=== PATIENT | male | born 1960 | race African-American/Black ===

== ENCOUNTER 2016-12-28 12:04 | Inpatient (IN) | payer MEDICAID ==
--- NOTE | 2016-12-28 12:50 | ED Physician Chart ---
ED Chief Complaint/HPI - Patient Information Date Seen:: 12/28/16 Time Seen:: 12:35 Chief Complaint:: dialysis shunt replacement/repair History of Present Illness:: location: general quality: dialysis shunt severity: moderate duration: one day context: dialysis dependent SNF pt post CVA with baseline awake, alert no verbal reponse and flexion contractures of upper and lower limbs is sent to ER from SNF due to inadequate dialysis access. PCP Dr. Briceño advises that patient needs dialysis access expediently or he will go into renal failure, pt is sent to this facility for dialysis access. pt is nonverbal, no grimace is reported. mod factors: none assoc s/s; none hx from medic, Dr. Briceño Allergies:: Allergies Allergy/AdvReac Type Severity Reaction Status Date / Time No Known Allergies Allergy Verified 12/28/16 12:28 Vitals:: Vital Signs - 8 hr 12/28/16 12:28 Temp 99.1 F HR 68 RR 18 BP 122/72 O2 Sat % 98 Historian:: EMS, Other Review:: Nurse's Note Reviewed, EMS run form Reviewed ED Review of Systems - Review of Systems General/Constitutional: No fever Skin: No rash Cardio Vascular: No edema GI: No diarrhea Allergic/Immuno: No angioedema ED Past Medical History - Past Medical History Past Medical History: CVA/TIA Family History: None (unknown, pt cannot give history) Social History: Non Smoker, No Alcohol, No Drug Use, Single, Care Facility Surgical History: other (right groin, right subclavian dialysis catheter ) Psychiatricy History: Dementia Medication: Reviewed Family Medical History - Family Member Mother History Unknown: Yes Ethnicity: Unknown Living Status: Unknown ED Physical Exam - Physical Examination General/Constitutional: Awake, No distress (slim, cachectic), Non-toxic appearing Head: Atraumatic Eyes: Lids, conjuctiva normal, PERRL, EOMI Skin: Nl inspection ENMT: External ears, nose nl, Nasal exam nl, Lips, teeth, gums nl Neck: Nontender Respiratory: Nl effort/Exclusion, Clear to Auscultation, No Wheeze/Rhonchi/Rales Cardio Vascular: RRR, No murmur, gallop, rubs, NL S1 S2 GI: No tenderness/rebounding/guarding : No CVA tenderness Extremities: No tenderness or effusion, Full ROM, normal strength in all extremities, No edema, Normal digits & nails Neuro/Psych: Alert/oriented Misc: Normal back (pt is awake, non-verbal and thus not verbally oriented), No paraspinal tenderness ED Labs/Radiology/EKG Results - Lab Results Results: medical decision making: pt with dialysis dependance. right groin catheter not functioning properly needs more definitive dialysis access. to be admitted for further treatment. pt to be admitted by Dr. Briceño. Laboratory Results - last 24 hr 12/28/16 12/28/16 12/28/16 13:00 13:00 13:00 WBC 6.3 RBC 3.75 L Hgb 10.3 L Hct 31.3 L MCV 83.5 MCH 27.4 MCHC Differential 32.8 RDW 19.2 Plt Count 394 MPV 7.5 Neutrophils % 73.4 Lymphocytes % 18.1 L Monocytes % 5.9 Eosinophils % 1.9 Basophils % 0.7 PT 9.6 INR 0.92 Sodium 130 L Potassium 3.3 L Chloride 100 Carbon Dioxide 25.1 Anion Gap 8.2 BUN 35 H Creatinine 7.0 H* Est GFR ( Amer) 10.6 Est GFR (Non-Af Amer) 8.8 BUN/Creatinine Ratio 5.0 Glucose 101 Calcium 10.7 H Total Bilirubin 0.3 AST 24 ALT 23 Alkaline Phosphatase 50 Total Protein 6.1 Albumin 3.1 L Globulin 3.0 Albumin/Globulin Ratio 1.0 ED Septic Shock - . Is Septic Shock (SBP<90, OR Lactate>4 mmol\L) present?: No - <6hrs of presentation: Vital Signs: Vital Signs - 8 hr 12/28/16 12:28 Temp 99.1 F HR 68 RR 18 BP 122/72 O2 Sat % 98 ED Reassessment (Disposition) - Reassessment Reassessment:: pt in stable condition while in ER Reassessment Condition:: Unchanged - Diagnosis Diagnosis:: Dialysis dependence needs dialysis access (urgent) - Patient Disposition Discharge/Transfer:: Acute Care w/in this hosp Accepting Physician:: Navarro Time Called:: 1410 Discussion with Medical Provider:: recommend admission for treatment of poor dialysis access, clogged dialysis access catheter Admitted to:: Med/Surg Admitting Medical Physician:: Albaro Briceño Condition at Disposition:: Stable
[2016-12-28 13:08] LABS: % BASOPHILS 0.7 % (0.0-2.0); % EOSINOPHILS 1.9 % (0.0-5.0); % LYMPHOCYTES 18.1 % (20.0-50.0); % MONOCYTES 5.9 % (2.0-10.0); % NEUTROPHILS 73.4 % (40.0-80.0); HEMATOCRIT 31.3 % (41.0-60); HEMOGLOBIN 10.3 gm/dL (12-16); MEAN CELL VOLUME 83.5 fl (80-99); MEAN CORPUSCULAR HEMOGLOBIN 27.4 pg (26.0-30.0); MEAN CORPUSCULAR HGB CONC 32.8 pg (28.0-36.0); MEAN PLATELET VOLUME 7.5 fl; NEUTROPHILE ABSOLUTE 4.7 Th/cmm (1.8-8.0); PLATELET COUNT 394 Th/cmm (150-400); RED BLOOD COUNT 3.75 Mil/cmm (4.30-5.70); RED CELL DISTRIBUTION WIDTH 19.2 % (11.5-20.0); WHITE BLOOD COUNT 6.3 Th/cmm (4.8-10.8)
[2016-12-28 13:20] LABS: INR 0.92 (0.5-1.4); PROTHROMBIN TIME (TEST) 9.6 SECONDS (9.5-11.5)
[2016-12-28 13:25] LABS: ANION GAP 8.2 (7.0-16.0); BILIRUBIN,TOTAL 0.3 mg/dL (0.3-1.0); CALCIUM SERUM 10.7 mg/dL (8.6-10.3); CARBON DIOXIDE 25.1 mEq/L (21.0-31.0); POTASSIUM SERUM 3.3 mEq/L (3.5-5.1)
[2016-12-28] MEDS ORDERED: Non-Formulary Item 1 EA (Lactulose [Lactulose] 20 GM) PO PRN (16:03)
[2016-12-28] MEDS ORDERED: Lactulose 10 Gm/15 mL 30mL UDC PO PRN ×2 (16:12→16:15)
[2016-12-28] MEDS ORDERED: DARBEPOETIN ALFA IN POLYSORBAT 40 MCG SQ SCH (16:15)
[2016-12-28] MEDS: KCL 20mEq/100mL Premix 20 MEQ/100 ML PIGGYBACK IV SCH ×2 (18:17→22:05)
[2016-12-28] MEDS ORDERED: Non-Formulary Item 1 EA (Atorvastatin Calcium [Lipitor] 20 MG) PO SCH (21:00)
[2016-12-28] MEDS: Atorvastatin Calcium 10 MG TAB PO SCH (22:13)
[2016-12-29 05:51] LABS: % BASOPHILS 0.3 % (0.0-2.0); % EOSINOPHILS 2.3 % (0.0-5.0); % LYMPHOCYTES 16.7 % (20.0-50.0); % NEUTROPHILS 76.7 % (40.0-80.0); HEMATOCRIT 29.4 % (41.0-60); HEMOGLOBIN 9.9 gm/dL (12-16); MEAN CELL VOLUME 82.8 fl (80-99); MEAN CORPUSCULAR HGB CONC 33.8 pg (28.0-36.0); MEAN PLATELET VOLUME 7.6 fl; NEUTROPHILE ABSOLUTE 5.7 Th/cmm (1.8-8.0); PLATELET COUNT 417 Th/cmm (150-400); RED BLOOD COUNT 3.55 Mil/cmm (4.30-5.70); RED CELL DISTRIBUTION WIDTH 19.3 % (11.5-20.0); WHITE BLOOD COUNT 7.5 Th/cmm (4.8-10.8)
[2016-12-29 06:13] LABS: ANION GAP 10.3 (7.0-16.0); CALCIUM SERUM 11.3 mg/dL (8.6-10.3); CARBON DIOXIDE 24.7 mEq/L (21.0-31.0)
[2016-12-29 06:18] LABS: CREATININE - SERUM 7.4 mg/dL (0.7-1.3)
--- NOTE | 2016-12-29 08:22 | Diagnostic Imaging Report ---
Exam: Chest x-ray HISTORY preop. Findings: Frontal examination of chest was reviewed. The study demonstrates no active pulmonic infiltrates or effusions. Mediastinal structures midline the heart is prominent. The costophrenic angles are clear. Bony thorax intact. IMPRESSION: No acute disease.
[2016-12-29] MEDS ORDERED: Non-Formulary Item 1 EA (Losartan Potassium [Cozaar] 100 MG) PO SCH (09:00)
--- NOTE | 2016-12-29 09:53 | History and Physical ---
History of Present Illness - HPI Chief Complaint: confustion HPI: pt progressively weak and confused Vital Signs: Last Vital Signs Temp 98.9 F 12/29/16 04:00 Pulse 61 12/29/16 04:00 Resp 18 12/29/16 04:00 BP 165/111 12/29/16 04:00 Pulse Ox 100 12/29/16 04:00 Past Medical History Psych: Report: Anxiety, Bipolar, Depression Family Medical History - Family Member Mother History Unknown: Yes Ethnicity: Unknown Living Status: Unknown Social History Smoke: No Alcohol: None Drugs: None Lives: Care Home - Medications Home Medications: Home Medication Medication Instructions Recorded Type Amlodipine Besylate 10 mg PO DAILY 12/28/16 History Aspirin EC [Ecotrin] 81 mg PO DAILY 12/28/16 History Atorvastatin Calcium [Lipitor] 20 mg PO HS 12/28/16 History Darbepoetin Herman in Polysorbat 40 mcg SQ QWEEK 0730 12/28/16 History [Aranesp] Donepezil Hcl [Aricept] 10 mg PO DAILY 12/28/16 History Famotidine [Pepcid] 20 mg PO DAILY 12/28/16 History Folic Acid [Folate*] 1 mg PO DAILY 12/28/16 History Folic Acid/Vit Bcomp,C 0.8 mg PO DAILY 12/28/16 History [Nephro-Miles Tablet] Hydralazine HCl 50 mg PO TID 12/28/16 History Lactulose 20 gm PO Q8HR PRN 12/28/16 History Losartan Potassium [Cozaar] 100 mg PO DAILY 12/28/16 History Megestrol Acetate [Megace] 40 mg PO BID 12/28/16 History Memantine [Namenda] 5 mg PO BID 12/28/16 History Nifedipine [Procardia Xl*] 30 mg PO DAILY 12/28/16 History Sucralfate [Carafate] 1 gm PO QID 12/28/16 History Tamsulosin HCl [Flomax] 0.4 mg PO DAILY 12/28/16 History cloNIDine HCl [Catapres] 0.1 mg PO Q6H PRN 12/28/16 History - Allergies Allergies/Adverse Reactions: Allergies Allergy/AdvReac Type Severity Reaction Status Date / Time No Known Allergies Allergy Verified 12/28/16 12:28 Review of Systems - Review of Systems Constitutional: Report: No Significant Eyes: Report: No Significant Respiratory: Report: SOB with Excertion Cardiovascular: Report: No Significant, Light Headedness Neurological: Report: Weakness, Incoordination Physical Exam - Physical Exam HEENT: Report: Ears Nose Throat within normal limits, Pharnyx within normal limits Neck: Report: Within normal limits Cardiovascular Systems: Report: +s1/s2 noted Respiratory: Report: Breath Sounds are within normal limits Abdomen: Report: Non-tender to palpation Skin: Report: Color of skin is within normal limits Neuro/Psych: Report: Mood affect is within normal limits, Depressed affect - Lab Results All Lab Results last 24 hours: Laboratory Last Values WBC 7.5 Th/cmm (4.8-10.8) 12/29/16 05:42 RBC 3.55 Mil/cmm (4.30-5.70) L 12/29/16 05:42 Hgb 9.9 gm/dL (12-16) L 12/29/16 05:42 Hct 29.4 % (41.0-60) L 12/29/16 05:42 MCV 82.8 fl (80-99) 12/29/16 05:42 MCH 28.0 pg (26.0-30.0) 12/29/16 05:42 MCHC Differential 33.8 pg (28.0-36.0) 12/29/16 05:42 RDW 19.3 % (11.5-20.0) 12/29/16 05:42 Plt Count 417 Th/cmm (150-400) H 12/29/16 05:42 MPV 7.6 fl 12/29/16 05:42 Neutrophils % 76.7 % (40.0-80.0) 12/29/16 05:42 Lymphocytes % 16.7 % (20.0-50.0) L 12/29/16 05:42 Monocytes % 4.0 % (2.0-10.0) 12/29/16 05:42 Eosinophils % 2.3 % (0.0-5.0) 12/29/16 05:42 Basophils % 0.3 % (0.0-2.0) 12/29/16 05:42 PT 9.6 SECONDS (9.5-11.5) 12/28/16 13:00 INR 0.92 (0.5-1.4) 12/28/16 13:00 Sodium 132 mEq/L (136-145) L 12/29/16 05:42 Potassium 4.0 mEq/L (3.5-5.1) 12/29/16 05:42 Chloride 101 mEq/L (98-107) 12/29/16 05:42 Carbon Dioxide 24.7 mEq/L (21.0-31.0) 12/29/16 05:42 Anion Gap 10.3 (7.0-16.0) 12/29/16 05:42 BUN 37 mg/dL (7-25) H 12/29/16 05:42 Creatinine 7.4 mg/dL (0.7-1.3) H* 12/29/16 05:42 Est GFR ( Amer) 9.9 ml/min (>90) 12/29/16 05:42 Est GFR (Non-Af Amer) 8.2 ml/min 12/29/16 05:42 BUN/Creatinine Ratio 5.0 12/29/16 05:42 Glucose 79 mg/dL (70-105) 12/29/16 05:42 Calcium 11.3 mg/dL (8.6-10.3) H 12/29/16 05:42 Total Bilirubin 0.3 mg/dL (0.3-1.0) 12/28/16 13:00 AST 24 U/L (13-39) 12/28/16 13:00 ALT 23 U/L (7-52) 12/28/16 13:00 Alkaline Phosphatase 50 U/L (34-104) 12/28/16 13:00 Total Protein 6.1 gm/dL (6.0-8.3) 12/28/16 13:00 Albumin 3.1 gm/dL (4.2-5.5) L 12/28/16 13:00 Globulin 3.0 gm/dL 12/28/16 13:00 Albumin/Globulin Ratio 1.0 (1.0-1.8) 12/28/16 13:00 Laboratory Results - last 24 hr 12/29/16 12/29/16 05:42 05:42 WBC 7.5 RBC 3.55 L Hgb 9.9 L Hct 29.4 L MCV 82.8 MCH 28.0 MCHC Differential 33.8 RDW 19.3 Plt Count 417 H MPV 7.6 Neutrophils % 76.7 Lymphocytes % 16.7 L Monocytes % 4.0 Eosinophils % 2.3 Basophils % 0.3 Sodium 132 L Potassium 4.0 Chloride 101 Carbon Dioxide 24.7 Anion Gap 10.3 BUN 37 H Creatinine 7.4 H* Est GFR ( Amer) 9.9 Est GFR (Non-Af Amer) 8.2 BUN/Creatinine Ratio 5.0 Glucose 79 Calcium 11.3 H - Assessment Assessment: psychosis - Plan Plan: psychosis muscle weakness plan psych consult
[2016-12-29] MEDS: NIFEdipine 30 mg ER Tab PO SCH (09:57)
--- NOTE | 2016-12-29 13:50 | Consultation ---
Consult Note - Consult Note Service Date: 12/29/16 Referring Physician: Albaro Briceño Consult Note: PHYSICIAN Consultation Note: Date of Admission: 12/28/16 Purpose of Consultation: esrd Chief Complaint: malfunctioning HD catheter History of Present Illness: Patient SAUNDRA WALLER was admitted to [facility] with SHUNT REPAIR/PLACEMENT. He was unable to complete his HD on Friday due to malfunction of dialysis catheter. He was hence sent to hospital for revision or replacement of dialysis catheter. He is nonverbal due to hx CVA and ESRD with dialysis status apparently on a MWF schedule. Past Medical History: as per hpi, also HTN, chronic encephalopathy Allergies Allergy/AdvReac Type Severity Reaction Status Date / Time No Known Allergies Allergy Verified 12/28/16 12:28 Vital Signs Temp 98.6 F 12/29/16 11:36 Pulse 86 12/29/16 11:36 Resp 18 12/29/16 11:36 BP 158/104 12/29/16 11:36 Pulse Ox 99 12/29/16 11:36 Intake & Output 12/28/16 12/29/16 12/29/16 18:59 06:59 18:59 Intake Total 200 100 Balance 200 100 Weight (lbs) 54.431 kg 50.547 kg Intake: Intake, IV Amount 100 KCL 20mEq/100mL Premix 20 100 meq In 100 ml @ 50 mls/ hr IV Q2H [facility] Rx#: [id number] Oral 200 Other: # Voids 2 1 # Bowel Movements 0 0 Laboratory Results - last 24 hr 12/29/16 12/29/16 05:42 05:42 WBC 7.5 RBC 3.55 L Hgb 9.9 L Hct 29.4 L MCV 82.8 MCH 28.0 MCHC Differential 33.8 RDW 19.3 Plt Count 417 H MPV 7.6 Neutrophils % 76.7 Lymphocytes % 16.7 L Monocytes % 4.0 Eosinophils % 2.3 Basophils % 0.3 Sodium 132 L Potassium 4.0 Chloride 101 Carbon Dioxide 24.7 Anion Gap 10.3 BUN 37 H Creatinine 7.4 H* Est GFR ( Amer) 9.9 Est GFR (Non-Af Amer) 8.2 BUN/Creatinine Ratio 5.0 Glucose 79 Calcium 11.3 H Home Medication Medication Instructions Recorded Type Amlodipine Besylate 10 mg PO DAILY 12/28/16 History Aspirin EC [Ecotrin] 81 mg PO DAILY 12/28/16 History Atorvastatin Calcium [Lipitor] 20 mg PO HS 12/28/16 History Darbepoetin Herman in Polysorbat 40 mcg SQ QWEEK 72912/28/16 History [Aranesp] Donepezil Hcl [Aricept] 10 mg PO DAILY 12/28/16 History Famotidine [Pepcid] 20 mg PO DAILY 12/28/16 History Folic Acid [Folate*] 1 mg PO DAILY 12/28/16 History Folic Acid/Vit Bcomp,C 0.8 mg PO DAILY 12/28/16 History [Nephro-Miles Tablet] Hydralazine HCl 50 mg PO TID 12/28/16 History Lactulose 20 gm PO Q8HR PRN 12/28/16 History Losartan Potassium [Cozaar] 100 mg PO DAILY 12/28/16 History Megestrol Acetate [Megace] 40 mg PO BID 12/28/16 History Memantine [Namenda] 5 mg PO BID 12/28/16 History Nifedipine [Procardia Xl*] 30 mg PO DAILY 12/28/16 History Sucralfate [Carafate] 1 gm PO QID 12/28/16 History Tamsulosin HCl [Flomax] 0.4 mg PO DAILY 12/28/16 History cloNIDine HCl [Catapres] 0.1 mg PO Q6H PRN 12/28/16 History Current Medications Generic Name Dose Route Start Last Admin Trade Name Freq PRN Reason Stop Dose Admin Amlodipine Besylate 10 mg 12/29/16 09:00 12/29/16 09:57 Norvasc PO 02/27/17 08:59 10 mg DAILY MIKA Administration Aspirin 81 mg 12/29/16 09:00 12/29/16 09:57 Ecotrin PO 02/27/17 08:59 81 mg DAILY MIKA Administration Atorvastatin Calcium 20 mg 12/28/16 21:00 12/28/16 22:13 Lipitor PO 02/26/17 20:59 20 mg HS MIKA Administration Donepezil HCl 10 mg 12/29/16 09:00 12/29/16 09:57 Aricept PO 02/27/17 08:59 10 mg DAILY MIKA Administration Famotidine 20 mg 12/29/16 09:00 12/29/16 09:57 Pepcid PO 02/27/17 08:59 20 mg DAILY MIKA Administration Folic Acid 1 mg 12/29/16 09:00 12/29/16 09:57 Folate PO 02/27/17 08:59 1 mg DAILY MIKA Administration Hydralazine HCl 50 mg 12/28/16 21:00 12/29/16 09:56 Apresoline PO 02/26/17 20:59 50 mg TID MIKA Administration Lactulose 20 gm 12/28/16 16:15 Cephulac PO 02/26/17 16:11 Q8HR PRN Constipation Losartan Potassium 100 mg 12/29/16 09:00 12/29/16 09:56 Cozaar PO 02/27/17 08:59 100 mg DAILY MIKA Administration Megestrol Acetate 40 mg 12/28/16 17:00 12/29/16 09:57 Megace PO 02/26/17 16:59 40 mg BID MIKA Administration Protocol Memantine 5 mg 12/28/16 17:00 12/29/16 09:58 Namenda PO 02/26/17 16:59 5 mg BID MIKA Administration Miscellaneous 40 mcg 12/28/16 16:15 Darbepoetin Herman In Polysorbat [Aranesp] SQ 02/26/17 16:14 QWEEK 0730 MIKA Nifedipine 30 mg 12/29/16 09:00 12/29/16 09:57 Procardia Xl PO 02/27/17 08:59 30 mg DAILY MIKA Administration Vitamin B Complex/Vit C/Folic Acid tab 12/29/16 09:00 Vitamin B Complex W/Vitamin C PO 02/27/17 08:59 DAILY MIKA Review of Systems: A 12 point ROS was reviewed with the pertinent positive and negatives noted in the HPI. Social History Smoking Status Unknown if ever smoked Family Medical History Family Medical History Start: 12/28/16 14: 25 Freq: ONCE Status: Active Document 12/28/16 15:36 SKYLAR (Rec: 12/28/16 15:36 SKYLAR KELLEY-[id number] ) Family Medical History Mother History Unknown Yes Physical Exam: Vitals see chart General: awake, not much purposeful response, in nad HEENT: head nc/at sclerae anicteric, op clear moist Neck: supple Cardio: rrr Respiratory: ctab Abdominal: soft ntnd Genital/Urinary: not done Extremities: no edema, R femoral HD catheter Neurological: as above Assessment: 1. malfunction of HD catheter 2. ESRD/Dialysis status 3. HTN w ESRD 4. Anemia due to ESRD 5. chronic encephalopathy 6. hx cva Plan: as per Vascular HD MWF and prn Procrit Monitor labs supportive care Signed, Jorje Ariza [phone]
[2016-12-29] MEDS: Atorvastatin Calcium 10 MG TAB PO SCH (20:47)
[2016-12-30] MEDS: Heparin Sod 1,000 Units/mL 10ml HD SCH ×2 (00:11→09:35)
[2016-12-30 05:02] LABS: % BASOPHILS 0.9 % (0.0-2.0); % EOSINOPHILS 2.5 % (0.0-5.0); % LYMPHOCYTES 23.2 % (20.0-50.0); % NEUTROPHILS 66.4 % (40.0-80.0); HEMATOCRIT 26.6 % (41.0-60); HEMOGLOBIN 8.9 gm/dL (12-16); MEAN CELL VOLUME 82.5 fl (80-99); MEAN CORPUSCULAR HEMOGLOBIN 27.5 pg (26.0-30.0); MEAN CORPUSCULAR HGB CONC 33.3 pg (28.0-36.0); MEAN PLATELET VOLUME 7.7 fl; NEUTROPHILE ABSOLUTE 3.9 Th/cmm (1.8-8.0); PLATELET COUNT 371 Th/cmm (150-400); RED BLOOD COUNT 3.22 Mil/cmm (4.30-5.70); RED CELL DISTRIBUTION WIDTH 18.9 % (11.5-20.0)
[2016-12-30 05:08] LABS: WHITE BLOOD COUNT 5.8 Th/cmm (4.8-10.8)
[2016-12-30 05:11] LABS: INR 0.96 (0.5-1.4)
[2016-12-30 05:15] LABS: ANION GAP 10.8 (7.0-16.0); BUN/CREATININE RATIO 5.3; CALCIUM SERUM 11.1 mg/dL (8.6-10.3); CARBON DIOXIDE 23.3 mEq/L (21.0-31.0); POTASSIUM SERUM 4.1 mEq/L (3.5-5.1)
[2016-12-30 05:18] LABS: CREATININE - SERUM 8.1 mg/dL (0.7-1.3)
[2016-12-30] MEDS: Vitamin B Complex w/Vitamin C Tab PO SCH ×2 (08:46→09:36)
[2016-12-30] MEDS: NIFEdipine 30 mg ER Tab PO SCH (08:47)
[2016-12-30] MEDS ORDERED: Meperidine 25 mg/mL 1mL Syr IVP ONE (09:00)
[2016-12-30] MEDS ORDERED: Lactated Ringer 1,000 ML IV SCH (09:00)
--- NOTE | 2016-12-30 10:00 | Consultation ---
DATE OF CONSULTATION: 12/29/2016 REFERRING PHYSICIAN: /Dr. Briceño. REASON FOR CONSULTATION: No dialysis access. Thank you for referring this patient to me. HISTORY OF PRESENT ILLNESS: This is a 56-year-old male status post CVA and dementia with contractures of upper extremity, who comes in because of inability to dialyze via Perm-A-Cath. This apparently has malfunctioned and the patient could not be dialyzed. LABORATORY STUDIES: Showed CBC to be normal. BUN and creatinine elevated at 35 and 7 respectively. PHYSICAL EXAMINATION: The patient is nonverbal. He has contracture of upper extremities. PLAN: We will place Perm-A-Cath and AV shunt or fistula depending on findings. JOB# [id number]
[2016-12-30] MEDS ORDERED: Midazolam 1mg/ml 2 ml vial IV ONE (11:19)
--- NOTE | 2016-12-30 11:54 | History and Physical ---
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 FOR THIS REASON PATIENT IS NOW ADMITTED FOR AV SHUNT REPAIR. Vital Signs: Last Vital Signs Temp 97.6 F 12/30/16 08:00 Pulse 56 12/30/16 08:47 Resp 18 12/30/16 08:00 BP 158/91 12/30/16 08:47 Pulse Ox 95 12/30/16 08:00 Past Medical History Cardiovascular: Report: HTN Pulmonary: Report: No Pertinent Hx DIRECTIONAL DRILLER: Report: Other (CVA TIA) Renal/: Report: Chronic Renal Failure, Other (ON ESRD) - Past Surgical History Past Surgical History: Other (AV SHUNT) Family Medical History - Family Member Mother History Unknown: Yes (NONCONTRIBUTORY) Ethnicity: Unknown Living Status: Unknown Social History Smoke: No Alcohol: None Drugs: None Lives: Fdc - Medications Home Medications: Home Medication Medication Instructions Recorded Type Amlodipine Besylate 10 mg PO DAILY 12/28/16 History Aspirin EC [Ecotrin] 81 mg PO DAILY 12/28/16 History Atorvastatin Calcium [Lipitor] 20 mg PO HS 12/28/16 History Darbepoetin Herman in Polysorbat 40 mcg SQ QWEEK 0730 12/28/16 History [Aranesp] Donepezil Hcl [Aricept] 10 mg PO DAILY 12/28/16 History Famotidine [Pepcid] 20 mg PO DAILY 12/28/16 History Folic Acid [Folate*] 1 mg PO DAILY 12/28/16 History Folic Acid/Vit Bcomp,C 0.8 mg PO DAILY 12/28/16 History [Nephro-Miles Tablet] Hydralazine HCl 50 mg PO TID 12/28/16 History Lactulose 20 gm PO Q8HR PRN 12/28/16 History Losartan Potassium [Cozaar] 100 mg PO DAILY 12/28/16 History Megestrol Acetate [Megace] 40 mg PO BID 12/28/16 History Memantine [Namenda] 5 mg PO BID 12/28/16 History Nifedipine [Procardia Xl*] 30 mg PO DAILY 12/28/16 History Sucralfate [Carafate] 1 gm PO QID 12/28/16 History Tamsulosin HCl [Flomax] 0.4 mg PO DAILY 12/28/16 History cloNIDine HCl [Catapres] 0.1 mg PO Q6H PRN 12/28/16 History - Allergies Allergies/Adverse Reactions: Allergies Allergy/AdvReac Type Severity Reaction Status Date / Time No Known Allergies Allergy Verified 12/28/16 12:28 Review of Systems - Review of Systems Constitutional: Report: No Significant Eyes: Report: No Significant ENT: Report: No Significant Respiratory: Report: No Significant Cardiovascular: Report: No Significant Gastrointestinal: Report: No Significant Genitourinary: Report: No Significant Musculoskeletal: Report: No Significant Skin: Report: No Significant Neurological: Report: No Significant Physical Exam - Physical Exam HEENT: Report: Ears Nose Throat within normal limits - Lab Results All Lab Results last 24 hours: Laboratory Last Values WBC 5.8 Th/cmm (4.8-10.8) D 12/30/16 04:40 RBC 3.22 Mil/cmm (4.30-5.70) L 12/30/16 04:40 Hgb 8.9 gm/dL (12-16) L 12/30/16 04:40 Hct 26.6 % (41.0-60) L 12/30/16 04:40 MCV 82.5 fl (80-99) 12/30/16 04:40 MCH 27.5 pg (26.0-30.0) 12/30/16 04:40 MCHC Differential 33.3 pg (28.0-36.0) 12/30/16 04:40 RDW 18.9 % (11.5-20.0) 12/30/16 04:40 Plt Count 371 Th/cmm (150-400) 12/30/16 04:40 MPV 7.7 fl 12/30/16 04:40 Neutrophils % 66.4 % (40.0-80.0) 12/30/16 04:40 Lymphocytes % 23.2 % (20.0-50.0) 12/30/16 04:40 Monocytes % 7.0 % (2.0-10.0) 12/30/16 04:40 Eosinophils % 2.5 % (0.0-5.0) 12/30/16 04:40 Basophils % 0.9 % (0.0-2.0) 12/30/16 04:40 PT 10.0 SECONDS (9.5-11.5) 12/30/16 04:40 INR 0.96 (0.5-1.4) 12/30/16 04:40 PTT (Actin FS) 23.7 SECONDS (26.0-38.0) L 12/30/16 04:40 Sodium 133 mEq/L (136-145) L 12/30/16 04:40 Potassium 4.1 mEq/L (3.5-5.1) 12/30/16 04:40 Chloride 103 mEq/L (98-107) 12/30/16 04:40 Carbon Dioxide 23.3 mEq/L (21.0-31.0) 12/30/16 04:40 Anion Gap 10.8 (7.0-16.0) 12/30/16 04:40 BUN 43 mg/dL (7-25) H 12/30/16 04:40 Creatinine 8.1 mg/dL (0.7-1.3) H* 12/30/16 04:40 Est GFR ( Amer) 9.0 ml/min (>90) 12/30/16 04:40 Est GFR (Non-Af Amer) 7.4 ml/min 12/30/16 04:40 BUN/Creatinine Ratio 5.3 12/30/16 04:40 Glucose 82 mg/dL (70-105) 12/30/16 04:40 POC Glucose 78 MG/DL (70 - 105) 12/30/16 07:52 Calcium 11.1 mg/dL (8.6-10.3) H 12/30/16 04:40 Total Bilirubin 0.3 mg/dL (0.3-1.0) 12/28/16 13:00 AST 24 U/L (13-39) 12/28/16 13:00 ALT 23 U/L (7-52) 12/28/16 13:00 Alkaline Phosphatase 50 U/L (34-104) 12/28/16 13:00 Total Protein 6.1 gm/dL (6.0-8.3) 12/28/16 13:00 Albumin 3.1 gm/dL (4.2-5.5) L 12/28/16 13:00 Globulin 3.0 gm/dL 12/28/16 13:00 Albumin/Globulin Ratio 1.0 (1.0-1.8) 12/28/16 13:00 Blood Type B POSITIVE 12/30/16 04:40 Antibody Screen NEGATIVE 12/30/16 04:40 Laboratory Results - last 24 hr 12/30/16 12/30/16 12/30/16 04:40 04:40 04:40 WBC 5.8 D RBC 3.22 L Hgb 8.9 L Hct 26.6 L MCV 82.5 MCH 27.5 MCHC Differential 33.3 RDW 18.9 Plt Count 371 MPV 7.7 Neutrophils % 66.4 Lymphocytes % 23.2 Monocytes % 7.0 Eosinophils % 2.5 Basophils % 0.9 PT INR PTT (Actin FS) Sodium 133 L Potassium 4.1 Chloride 103 Carbon Dioxide 23.3 Anion Gap 10.8 BUN 43 H Creatinine 8.1 H* Est GFR ( Amer) 9.0 Est GFR (Non-Af Amer) 7.4 BUN/Creatinine Ratio 5.3 Glucose 82 POC Glucose Calcium 11.1 H Blood Type B POSITIVE Antibody Screen NEGATIVE 12/30/16 12/30/16 04:40 07:52 WBC RBC Hgb Hct MCV MCH MCHC Differential RDW Plt Count MPV Neutrophils % Lymphocytes % Monocytes % Eosinophils % Basophils % PT 10.0 INR 0.96 PTT (Actin FS) 23.7 L Sodium Potassium Chloride Carbon Dioxide Anion Gap BUN Creatinine Est GFR ( Amer) Est GFR (Non-Af Amer) BUN/Creatinine Ratio Glucose POC Glucose 78 Calcium Blood Type Antibody Screen - Assessment Assessment: 1. Av shunt malfunction 2. ESRD on HD 3. HTN 4. Anemia 5. chronic encephalopathy 6. hx cva - Plan Plan: av shunt repair surgical consult am labs nephro consult
--- NOTE | 2016-12-30 12:29 | Diagnostic Imaging Report ---
Bilateral upper extremity, venous Doppler to assess for AV fistula placement History: AV fistula Comparison: None Technique/procedure: Measurements as below in CM Right: Upper Proximal cephalic: 0.68 Upper Mid cephalic 0.46 Upper Distal cephalic 0.27 Axillary 0.43 Mid cubital 0.21 Left: Per physician request only the proximal upper cephalic vein and left subclavian vein were measured. upper cephalic: 0.44 subclavian 0.31 Note assessment for DVT was not performed on this exam. IMPRESSION: Bilateral upper extremity venous measurements as detailed above.
--- NOTE | 2016-12-30 14:10 | Operative Report ---
DATE OF SURGERY: 12/30/2016 PREOPERATIVE DIAGNOSES: 1. End-stage renal disease. 2. Status post cerebrovascular accident. POSTOPERATIVE DIAGNOSES: 1. End-stage renal disease. 2. Status post cerebrovascular accident. OPERATION: 1. Zayda fistula placement, left arm between the brachial artery and the cephalic vein. 2. Change of PermCath in left femoral vein. SURGEON: Abhishek German M.D ANESTHESIA: MAC. ANESTHESIOLOGIST: Sofie Byrd M.D. OPERATIVE FINDINGS: The cephalic vein appeared to be of fair size and Damon catheter was able to go all the way up into the subclavian vein. The brachial artery was of good size. ESTIMATED BLOOD LOSS: 10 mL. PROCEDURE: The patient was given IV sedation. Left upper extremity and chest were prepped with ChloraPrep and draped in appropriate manner. Then, lidocaine was used to infiltrate the antecubital fossa and an incision was made. Search for sizable vein was done. Because of the size of the vein that was marginal, the axillary area was checked. The axillary vein was small size, however. Then, 3000 units of heparin was given intravenously and the cephalic vein was anastomosed to brachial artery utilizing running suture of 5-0 Prolene. The Damon catheter inserted into the vein and this went all the way into the subclavian. The vein was dilated. The incision was closed with 4-0 Vicryl subcutaneously. Sterile dressing placed over this. Attempt to cannulate the left subclavian vein was unsuccessful and it was abandoned. Instead the right femoral vein was replaced with another Perm-A-Cath 24 cm in length. The patient tolerated the procedure well. JOB# [id number]
[2016-12-30] MEDS: [UNRECOGNIZED DRUG - SUPPLY] TP ONE ×2 (16:04→17:10)
[2016-12-30] MEDS: Atorvastatin Calcium 10 MG TAB PO SCH (22:08)
[2016-12-31 05:56] LABS: % EOSINOPHILS 2.2 % (0.0-5.0); % LYMPHOCYTES 16.9 % (20.0-50.0); % MONOCYTES 9.6 % (2.0-10.0); % NEUTROPHILS 71.3 % (40.0-80.0); HEMATOCRIT 28.5 % (41.0-60); HEMOGLOBIN 9.4 gm/dL (12-16); MEAN CELL VOLUME 83.2 fl (80-99); MEAN CORPUSCULAR HEMOGLOBIN 27.6 pg (26.0-30.0); MEAN CORPUSCULAR HGB CONC 33.1 pg (28.0-36.0); NEUTROPHILE ABSOLUTE 5.3 Th/cmm (1.8-8.0); PLATELET COUNT 355 Th/cmm (150-400); RED BLOOD COUNT 3.42 Mil/cmm (4.30-5.70); RED CELL DISTRIBUTION WIDTH 19.1 % (11.5-20.0)
[2016-12-31 05:59] LABS: WHITE BLOOD COUNT 7.5 Th/cmm (4.8-10.8)
[2016-12-31 06:16] LABS: ANION GAP 10.6 (7.0-16.0); BUN/CREATININE RATIO 4.7; CALCIUM SERUM 10.9 mg/dL (8.6-10.3); CARBON DIOXIDE 24.3 mEq/L (21.0-31.0); POTASSIUM SERUM 3.9 mEq/L (3.5-5.1)
[2016-12-31 07:08] LABS: HEP B CORE IGM Positive (Negative); HEP C ANTIBODY 0.1 s/co ratio (0.0-0.9)
--- NOTE | 2016-12-31 09:00 | General Progress Note ---
Subjective - Review of Systems Events since last encounter: patient admitted for SHUNT MALFUNCTION s/p AV SHUNT REPAIR. BY DR RICHEY patient awake in no distress Objective - Results Result Diagrams: 12/31/16 05:30 12/31/16 05:30 Recent Labs: Laboratory Last Values WBC 7.5 Th/cmm (4.8-10.8) D 12/31/16 05:30 RBC 3.42 Mil/cmm (4.30-5.70) L 12/31/16 05:30 Hgb 9.4 gm/dL (12-16) L 12/31/16 05:30 Hct 28.5 % (41.0-60) L 12/31/16 05:30 MCV 83.2 fl (80-99) 12/31/16 05:30 MCH 27.6 pg (26.0-30.0) 12/31/16 05:30 MCHC Differential 33.1 pg (28.0-36.0) 12/31/16 05:30 RDW 19.1 % (11.5-20.0) 12/31/16 05:30 Plt Count 355 Th/cmm (150-400) 12/31/16 05:30 MPV 8.0 fl 12/31/16 05:30 Neutrophils % 71.3 % (40.0-80.0) 12/31/16 05:30 Lymphocytes % 16.9 % (20.0-50.0) L 12/31/16 05:30 Monocytes % 9.6 % (2.0-10.0) 12/31/16 05:30 Eosinophils % 2.2 % (0.0-5.0) 12/31/16 05:30 Basophils % 0.0 % (0.0-2.0) 12/31/16 05:30 PT 10.0 SECONDS (9.5-11.5) 12/30/16 04:40 INR 0.96 (0.5-1.4) 12/30/16 04:40 PTT (Actin FS) 23.7 SECONDS (26.0-38.0) L 12/30/16 04:40 Sodium 135 mEq/L (136-145) L 12/31/16 05:30 Potassium 3.9 mEq/L (3.5-5.1) 12/31/16 05:30 Chloride 104 mEq/L (98-107) 12/31/16 05:30 Carbon Dioxide 24.3 mEq/L (21.0-31.0) 12/31/16 05:30 Anion Gap 10.6 (7.0-16.0) 12/31/16 05:30 BUN 28 mg/dL (7-25) H 12/31/16 05:30 Creatinine 6.0 mg/dL (0.7-1.3) H* 12/31/16 05:30 Est GFR ( Amer) 12.7 ml/min (>90) 12/31/16 05:30 Est GFR (Non-Af Amer) 10.5 ml/min 12/31/16 05:30 BUN/Creatinine Ratio 4.7 12/31/16 05:30 Glucose 79 mg/dL (70-105) 12/31/16 05:30 POC Glucose 78 MG/DL (70 - 105) 12/30/16 07:52 Calcium 10.9 mg/dL (8.6-10.3) H 12/31/16 05:30 Total Bilirubin 0.3 mg/dL (0.3-1.0) 12/28/16 13:00 AST 24 U/L (13-39) 12/28/16 13:00 ALT 23 U/L (7-52) 12/28/16 13:00 Alkaline Phosphatase 50 U/L (34-104) 12/28/16 13:00 Total Protein 6.1 gm/dL (6.0-8.3) 12/28/16 13:00 Albumin 3.1 gm/dL (4.2-5.5) L 12/28/16 13:00 Globulin 3.0 gm/dL 12/28/16 13:00 Albumin/Globulin Ratio 1.0 (1.0-1.8) 12/28/16 13:00 Hepatitis A IgM Ab Negative (Negative) 12/30/16 15:13 Hep Bs Antigen Negative (Negative) 12/30/16 15:13 Hep B Core IgM Ab Positive (Negative) H 12/30/16 15:13 Hepatitis C Antibody 0.1 s/co ratio (0.0-0.9) 12/30/16 15:13 Blood Type B POSITIVE 12/30/16 04:40 Antibody Screen NEGATIVE 12/30/16 04:40 - Physical Exam Vitals and I&O: Vital Signs Temp 98.2 F 12/31/16 08:00 Pulse 58 12/31/16 08:00 Resp 18 12/31/16 08:00 BP 171/110 12/31/16 08:00 Pulse Ox 100 12/31/16 08:00 Intake & Output 12/30/16 12/31/16 12/31/16 18:59 06:59 18:59 Intake Total 450 240 Output Total 25 Balance 425 240 Weight (lbs) 46.266 kg 46.266 kg Intake: Oral 450 240 Output: Other 25 Other: # Voids 3 # Bowel Movements 0 0 Active Medications: Current Medications Amlodipine Besylate (Norvasc) 10 mg PO DAILY [facility] Stop: 02/27/17 08:59 Last Admin: 12/30/16 08:47 Dose: Not Given Aspirin (Ecotrin) 81 mg PO DAILY [facility] Stop: 02/27/17 08:59 Last Admin: 12/30/16 08:46 Dose: Not Given Atorvastatin Calcium (Lipitor) 20 mg PO HS [facility] Stop: 02/26/17 20:59 Last Admin: 12/30/16 22:08 Dose: 20 mg Donepezil HCl (Aricept) 10 mg PO DAILY [facility] Stop: 02/27/17 08:59 Last Admin: 12/30/16 08:46 Dose: Not Given Famotidine (Pepcid) 20 mg PO DAILY [facility] Stop: 02/27/17 08:59 Last Admin: 12/30/16 08:46 Dose: Not Given Folic Acid (Folate) 1 mg PO DAILY [facility] Stop: 02/27/17 08:59 Last Admin: 12/30/16 08:46 Dose: Not Given Hydralazine HCl (Apresoline) 50 mg PO TID [facility] Stop: 02/26/17 20:59 Last Admin: 12/30/16 22:10 Dose: 50 mg Lactated Ringer's (Lactated Ringer) 1,000 mls @ 0 mls/hr IV .Q0M [facility] PRN Reason: TKO Stop: 12/31/16 08:59 Lactulose (Cephulac) 20 gm PO Q8HR PRN PRN Reason: Constipation Stop: 02/26/17 16:11 Losartan Potassium (Cozaar) 100 mg PO DAILY [facility] Stop: 02/27/17 08:59 Last Admin: 12/30/16 08:47 Dose: Not Given Megestrol Acetate (Megace) 40 mg PO BID [facility] PRN Reason: Protocol Stop: 02/26/17 16:59 Last Admin: 12/30/16 16:51 Dose: 40 mg Memantine (Namenda) 5 mg PO BID [facility] Stop: 02/26/17 16:59 Last Admin: 12/30/16 16:52 Dose: 5 mg Miscellaneous (Darbepoetin Herman In Polysorbat [Aranesp]) 40 mcg SQ QWEEK 30 [facility] Stop: 02/26/17 16:14 Nifedipine (Procardia Xl) 30 mg PO DAILY [facility] Stop: 02/27/17 08:59 Last Admin: 12/30/16 08:47 Dose: Not Given Vitamin B Complex/Vit C/Folic Acid (Vitamin B Complex W/Vitamin C) 1 tab PO DAILY [facility] Stop: 02/27/17 08:59 Last Admin: 12/30/16 09:36 Dose: Not Given General: No acute distress HEENT: Atraumatic Neck: Supple Cardiovascular: Regular rate, Normal S1 Assessment/Plan - Problem List Patient Problems: All Active Problems AV shunt malfunction (Acute) T82.591A Anemia (Acute) D64.9 ESRD (end stage renal disease) on dialysis (Acute) N18.6, Z99.2 H/O: CVA (cerebrovascular accident) (Acute) Z86.73 HTN (hypertension) (Acute) I10 chonic encephalopathy (Acute) - Plan Plan: monitor vitals/diet labs f/up consultants
[2016-12-31] MEDS: Vitamin B Complex w/Vitamin C Tab PO SCH (09:11)
[2016-12-31] MEDS: NIFEdipine 30 mg ER Tab PO SCH (09:12)
--- NOTE | 2016-12-31 13:40 | General Progress Note ---
Subjective - Review of Systems Service Date: 12/31/16 Events since last encounter: fistula patent Objective - Results Result Diagrams: 12/31/16 05:30 12/31/16 05:30 Recent Labs: Laboratory Last Values WBC 7.5 Th/cmm (4.8-10.8) D 12/31/16 05:30 RBC 3.42 Mil/cmm (4.30-5.70) L 12/31/16 05:30 Hgb 9.4 gm/dL (12-16) L 12/31/16 05:30 Hct 28.5 % (41.0-60) L 12/31/16 05:30 MCV 83.2 fl (80-99) 12/31/16 05:30 MCH 27.6 pg (26.0-30.0) 12/31/16 05:30 MCHC Differential 33.1 pg (28.0-36.0) 12/31/16 05:30 RDW 19.1 % (11.5-20.0) 12/31/16 05:30 Plt Count 355 Th/cmm (150-400) 12/31/16 05:30 MPV 8.0 fl 12/31/16 05:30 Neutrophils % 71.3 % (40.0-80.0) 12/31/16 05:30 Lymphocytes % 16.9 % (20.0-50.0) L 12/31/16 05:30 Monocytes % 9.6 % (2.0-10.0) 12/31/16 05:30 Eosinophils % 2.2 % (0.0-5.0) 12/31/16 05:30 Basophils % 0.0 % (0.0-2.0) 12/31/16 05:30 PT 10.0 SECONDS (9.5-11.5) 12/30/16 04:40 INR 0.96 (0.5-1.4) 12/30/16 04:40 PTT (Actin FS) 23.7 SECONDS (26.0-38.0) L 12/30/16 04:40 Sodium 135 mEq/L (136-145) L 12/31/16 05:30 Potassium 3.9 mEq/L (3.5-5.1) 12/31/16 05:30 Chloride 104 mEq/L (98-107) 12/31/16 05:30 Carbon Dioxide 24.3 mEq/L (21.0-31.0) 12/31/16 05:30 Anion Gap 10.6 (7.0-16.0) 12/31/16 05:30 BUN 28 mg/dL (7-25) H 12/31/16 05:30 Creatinine 6.0 mg/dL (0.7-1.3) H* 12/31/16 05:30 Est GFR ( Amer) 12.7 ml/min (>90) 12/31/16 05:30 Est GFR (Non-Af Amer) 10.5 ml/min 12/31/16 05:30 BUN/Creatinine Ratio 4.7 12/31/16 05:30 Glucose 79 mg/dL (70-105) 12/31/16 05:30 POC Glucose 78 MG/DL (70 - 105) 12/30/16 07:52 Calcium 10.9 mg/dL (8.6-10.3) H 12/31/16 05:30 Total Bilirubin 0.3 mg/dL (0.3-1.0) 12/28/16 13:00 AST 24 U/L (13-39) 12/28/16 13:00 ALT 23 U/L (7-52) 12/28/16 13:00 Alkaline Phosphatase 50 U/L (34-104) 12/28/16 13:00 Total Protein 6.1 gm/dL (6.0-8.3) 12/28/16 13:00 Albumin 3.1 gm/dL (4.2-5.5) L 12/28/16 13:00 Globulin 3.0 gm/dL 12/28/16 13:00 Albumin/Globulin Ratio 1.0 (1.0-1.8) 12/28/16 13:00 Hepatitis A IgM Ab Negative (Negative) 12/30/16 15:13 Hep Bs Antigen Negative (Negative) 12/30/16 15:13 Hep B Core IgM Ab Positive (Negative) H 12/30/16 15:13 Hepatitis C Antibody 0.1 s/co ratio (0.0-0.9) 12/30/16 15:13 Blood Type B POSITIVE 12/30/16 04:40 Antibody Screen NEGATIVE 12/30/16 04:40 - Physical Exam Vitals and I&O: Vital Signs Temp 97.7 F 12/31/16 12:00 Pulse 77 12/31/16 12:00 Resp 19 12/31/16 12:00 BP 144/77 12/31/16 12:00 Pulse Ox 100 12/31/16 08:00 Intake & Output 12/30/16 12/31/16 12/31/16 18:59 06:59 18:59 Intake Total 450 240 Output Total 25 Balance 425 240 Weight (lbs) 46.266 kg 46.266 kg Intake: Oral 450 240 Output: Other 25 Other: # Voids 3 # Bowel Movements 0 0 Active Medications: Current Medications Amlodipine Besylate (Norvasc) 10 mg PO DAILY [facility] Stop: 02/27/17 08:59 Last Admin: 12/31/16 09:12 Dose: 10 mg Aspirin (Ecotrin) 81 mg PO DAILY [facility] Stop: 02/27/17 08:59 Last Admin: 12/31/16 09:12 Dose: 81 mg Atorvastatin Calcium (Lipitor) 20 mg PO HS [facility] Stop: 02/26/17 20:59 Last Admin: 12/30/16 22:08 Dose: 20 mg Donepezil HCl (Aricept) 10 mg PO DAILY [facility] Stop: 02/27/17 08:59 Last Admin: 12/31/16 09:11 Dose: 10 mg Famotidine (Pepcid) 20 mg PO DAILY [facility] Stop: 02/27/17 08:59 Last Admin: 12/31/16 09:11 Dose: 20 mg Folic Acid (Folate) 1 mg PO DAILY [facility] Stop: 02/27/17 08:59 Last Admin: 12/31/16 09:11 Dose: 1 mg Hydralazine HCl (Apresoline) 50 mg PO TID [facility] Stop: 02/26/17 20:59 Last Admin: 12/31/16 09:10 Dose: 50 mg Lactulose (Cephulac) 20 gm PO Q8HR PRN PRN Reason: Constipation Stop: 02/26/17 16:11 Losartan Potassium (Cozaar) 100 mg PO DAILY [facility] Stop: 02/27/17 08:59 Last Admin: 12/31/16 09:11 Dose: 100 mg Megestrol Acetate (Megace) 40 mg PO BID [facility] PRN Reason: Protocol Stop: 02/26/17 16:59 Last Admin: 12/31/16 09:12 Dose: 40 mg Memantine (Namenda) 5 mg PO BID [facility] Stop: 02/26/17 16:59 Last Admin: 12/31/16 09:12 Dose: 5 mg Miscellaneous (Darbepoetin Herman In Polysorbat [Aranesp]) 40 mcg SQ QWEEK 0730 [facility] Stop: 02/26/17 16:14 Nifedipine (Procardia Xl) 30 mg PO DAILY [facility] Stop: 02/27/17 08:59 Last Admin: 12/31/16 09:12 Dose: 30 mg Vitamin B Complex/Vit C/Folic Acid (Vitamin B Complex W/Vitamin C) 1 tab PO DAILY [facility] Stop: 02/27/17 08:59 Last Admin: 12/31/16 09:11 Dose: 1 tab General: No acute distress HEENT: Atraumatic Neck: Supple Cardiovascular: Regular rate, Normal S1 Assessment/Plan - Problem List Patient Problems: All Active Problems AV shunt malfunction (Acute) T82.591A Anemia (Acute) D64.9 ESRD (end stage renal disease) on dialysis (Acute) N18.6, Z99.2 H/O: CVA (cerebrovascular accident) (Acute) Z86.73 HTN (hypertension) (Acute) I10 chonic encephalopathy (Acute)
--- NOTE | 2017-01-03 23:16 | Discharge Summary ---
DATE OF DISCHARGE: 12/31/2016 HOSPITAL COURSE: At the time of discharge was stable. The patient was admitted because of shunt malfunction, history of chronic kidney disease, and also has a history of hypertension, history of CVA, history of encephalopathy, and anemia. The patient was started on [id number] and the patient was dialyzed and the patient was doing okay and the patient was in a stable condition and on 12/31/2016, the patient was [facility] a [facility] I will be following the patient. JOB# [id number]
== END 2016-12-31 18:10 | disposition home or self-care (01) | DRG 444 ==
LOC: ER 12:04 → MSI 14:18
PROVIDERS: ADMIT Internal Medicine; ATTEND Internal Medicine
PROC: 03180ZD Bypass Left Brachial Artery to Upper Arm Vein, Open Approach (ICD-10-PCS; principal; 2016-12-30)
PROC: 06HN33Z Insertion of Infusion Device into Left Femoral Vein, Percutaneous Approach (ICD-10-PCS; 2016-12-30)
DX: T82.511A Breakdown (mechanical) of surgically created arteriovenous shunt, initial encounter (principal); R64 Cachexia; I12.0 Hypertensive chronic kidney disease with stage 5 chronic kidney disease or end stage renal disease; F03.90 Unspecified dementia, unspecified severity, without behavioral disturbance, psychotic disturbance, mood disturbance, and anxiety; N18.6 End stage renal disease; D63.1 Anemia in chronic kidney disease; F31.9 Bipolar disorder, unspecified; F29 Unspecified psychosis not due to a substance or known physiological condition; M62.81 Muscle weakness (generalized); Y83.8 Other surgical procedures as the cause of abnormal reaction of the patient, or of later complication, without mention of misadventure at the time of the procedure; Y92.89 Other specified places as the place of occurrence of the external cause; Z86.73 Personal history of transient ischemic attack (TIA), and cerebral infarction without residual deficits; Z68.1 Body mass index [BMI] 19.9 or less, adult; Z79.82 Long term (current) use of aspirin; Z99.2 Dependence on renal dialysis
CPT/HCPCS: 36415-UA; 71010-TC; 80048-TC; 80053-TC; 80074-90; 82948-90; 85025-TC; 85610-TC; 85730-TC; 86850-TC; 86900-TC; 86901-TC; 90937; 93005; 93970-TC-50; J0360; J1644; J2001; J2250; J2704; J3480; J7030; V2790; Z7610

== ENCOUNTER 2017-01-27 15:36 | Inpatient (IN) | payer MEDICAID ==
--- NOTE | 2017-01-27 16:04 | ED Physician Chart ---
ED Chief Complaint/HPI - Patient Information Date Seen:: 01/27/17 Time Seen:: 15:45 Chief Complaint:: ALOC History of Present Illness:: onset x 2 hours of confusion, ALOC, AMS while on Dialysis today; pt has increased failure to thrive, and weight loss; no report of trauma, H/As, neck pain, C/P, SOB, Abd. Pain, A/N/V/D/C, fever, chills, or urinary s/s Allergies:: Allergies Allergy/AdvReac Type Severity Reaction Status Date / Time No Known Allergies Allergy Verified 01/27/17 15:52 Historian:: Patient, EMS Review:: Nurse's Note Reviewed, EMS run form Reviewed ED Review of Systems - Review of Systems General/Constitutional: No fever, No chills, No weight loss, No weakness, No diaphoresis, No edema, No loss of appetite Skin: No skin lesions, No rash, No bruising Head: No headache, No light-headedness Eyes: No loss of vision, No pain, No diplopia ENT: No earache, No nasal drainage, No sore throat, No tinnitus Neck: No neck pain, No swelling, No thyromegaly, No stiffness, No mass noted Cardio Vascular: No chest pain, No palpitations, No PND, No orthopnea, No edema Pulmonary: No SOB, No cough, No sputum, No wheezing GI: No nausea, No vomiting, No diarrhea, No pain, No melena, No hematochezia, No constipation, No hematemesis G/U: No dysuria, No frequency, No hematuria Musculoskeletal: No bone or joint pain, No back pain, No muscle pain Endocrine: No polyuria, No polydipsia Psychiatric: No prior psych history, No depression, No anxiety, No suicidal ideation, No homicidal ideation, No auditory hallucination, No visual hallucination Hematopoietic: No bruising, No lymphadenopathy Allergic/Immuno: No urticaria, No angioedema Neurological: No syncope, No focal symptoms, Weakness, No paresthesia, No headache, No seizure, Dizziness, Confusion, Vertigo ED Past Medical History - Past Medical History Obtainable: Yes Past Medical History: HTN, CVA/TIA, Dyslipidemia, ESRD, Dementia Family History: Diabetes Melitus, HTN Social History: Non Smoker, No Alcohol, No Drug Use, Single, Care Facility Surgical History: other (Dialysis Catheter Insertion Procedure Surgery) Psychiatricy History: Dementia Medication: Reviewed Family Medical History - Family Member Mother History Unknown: Yes Ethnicity: Unknown Living Status: Unknown ED Physical Exam - Physical Examination General/Constitutional: Awake, Well-developed, well-nourished, Alert, No distress, GCS 15, Non-toxic appearing, Ambulatory Head: Atraumatic Eyes: Lids, conjuctiva normal, PERRL, EOMI Skin: Nl inspection, No rash, No skin lesions, No ecchymosis, Well hydrated, No lymphadenopathy ENMT: External ears, nose nl, TM canals nl, Nasal exam nl, Lips, teeth, gums nl , Oropharynx nl, Tonsils nl Neck: Nontender, Full ROM w/o pain, No JVD, No nuchal rigidity, No bruit, No mass, No stridor Respiratory: Nl effort/Exclusion, Clear to Auscultation, No Wheeze/Rhonchi/Rales Cardio Vascular: RRR, No murmur, gallop, rubs, NL S1 S2, Carotid/Femoral/Distal pulses equal bilaterally GI: No tenderness/rebounding/guarding, No organomegaly, No hernia, Normal BS's, Nondistended, No mass/bruits, No McBurney tenderness : No CVA tenderness Extremities: No tenderness or effusion, Full ROM, normal strength in all extremities, No edema, Normal digits & nails Neuro/Psych: DTR's symmetric, Normal sensory exam, Normal motor strength, Judgement/insight normal, Mood normal, Normal gait, No focal deficits Other Neuro/Psych comments:: Disoriented and confused Misc: Normal back, No paraspinal tenderness ED Labs/Radiology/EKG Results - Lab Results Comments:: Amylase: 197; Lipase: 304; Cr: 3.7 - Radiology Results Comments:: CXR: + Infiltrate - EKG Interpretations EKG Time:: 17:02 Rate & Rhythm: 79; NSR Comments:: PACs; old ASMI; non-specific st-t changes ED Septic Shock - . Is Septic Shock (SBP<90, OR Lactate>4 mmol\L) present?: No ED Reassessment (Disposition) - Reassessment Reassessment Condition:: Improved - Diagnosis Diagnosis:: Dx: PNA; Sepsis; Pancreatitis; AMS; ALOC; ESRD - Aftercare/Follow up Instructions Aftercare/Follow-Up Instructions:: Counseled pt regarding lab results/diagnosis & need follow up, Counseled pt & family regarding lab results/diagnosis & need follow up - Patient Disposition Discharge/Transfer:: Acute Care w/in this hosp Accepting Physician:: Dr. Briceño Time Called:: [id number] Time Responded:: 17:50 Admitted to:: Telemetry Spoke to:: Dr. Briceño Admitting Medical Physician:: Dr. Briceño Condition at Disposition:: Stable, Improved
[2017-01-27 16:53] LABS: % EOSINOPHILS 0.6 % (0.0-5.0); % LYMPHOCYTES 12.2 % (20.0-50.0); % MONOCYTES 7.4 % (2.0-10.0); % NEUTROPHILS 79.8 % (40.0-80.0); MEAN CELL VOLUME 89.8 fl (80-99); MEAN CORPUSCULAR HEMOGLOBIN 28.9 pg (26.0-30.0); MEAN CORPUSCULAR HGB CONC 32.2 pg (28.0-36.0); MEAN PLATELET VOLUME 8.7 fl; NEUTROPHILE ABSOLUTE 5.3 Th/cmm (1.8-8.0); PLATELET COUNT 303 Th/cmm (150-400); RED BLOOD COUNT 4.32 Mil/cmm (4.30-5.70); RED CELL DISTRIBUTION WIDTH 18.1 % (11.5-20.0); WHITE BLOOD COUNT 6.6 Th/cmm (4.8-10.8)
[2017-01-27 16:57] LABS: HEMATOCRIT 38.8 % (41.0-60); HEMOGLOBIN 12.5 gm/dL (12-16)
[2017-01-27 17:09] LABS: ALB/GLOB RATIO 1.2 (1.0-1.8); ANION GAP 11.8 (7.0-16.0); BILIRUBIN,TOTAL 0.4 mg/dL (0.3-1.0); BUN/CREATININE RATIO 5.7; CALCIUM SERUM 10.8 mg/dL (8.6-10.3); CREATININE - SERUM 3.7 mg/dL (0.7-1.3); POTASSIUM SERUM 3.8 mEq/L (3.5-5.1)
[2017-01-27 17:10] LABS: AMYLASE SERUM 197 U/L (29-103); LIPASE 304 U/L (11-82)
[2017-01-27 17:27] LABS: INR 1.01 (0.5-1.4); PROTHROMBIN TIME (TEST) 10.5 SECONDS (9.5-11.5)
[2017-01-27] MEDS ORDERED: Levofloxacin 500mg/100mL 500 MG/100 ML BAG IV ONE ×2 (17:59→18:10)
[2017-01-27 22:07] VITALS: BP 131/97
[2017-01-27] MEDS: Sodium Chloride 0.9% 1,000 ML IV SCH (23:43)
[2017-01-28 05:26] LABS: % BASOPHILS 1.1 % (0.0-2.0); % EOSINOPHILS 0.6 % (0.0-5.0); % LYMPHOCYTES 21.4 % (20.0-50.0); % MONOCYTES 10.5 % (2.0-10.0); % NEUTROPHILS 66.4 % (40.0-80.0); HEMATOCRIT 36.4 % (41.0-60); HEMOGLOBIN 11.8 gm/dL (12-16); MEAN CELL VOLUME 89.2 fl (80-99); MEAN CORPUSCULAR HEMOGLOBIN 28.9 pg (26.0-30.0); MEAN CORPUSCULAR HGB CONC 32.4 pg (28.0-36.0); MEAN PLATELET VOLUME 8.8 fl; NEUTROPHILE ABSOLUTE 3.3 Th/cmm (1.8-8.0); PLATELET COUNT 284 Th/cmm (150-400); RED BLOOD COUNT 4.08 Mil/cmm (4.30-5.70); RED CELL DISTRIBUTION WIDTH 17.7 % (11.5-20.0)
[2017-01-28 05:28] LABS: WHITE BLOOD COUNT 4.9 Th/cmm (4.8-10.8)
[2017-01-28 05:43] LABS: ANION GAP 9.5 (7.0-16.0); BUN/CREATININE RATIO 5.6; CALCIUM SERUM 11.8 mg/dL (8.6-10.3); CARBON DIOXIDE 25.5 mEq/L (21.0-31.0)
[2017-01-28] MEDS ORDERED: Influenza Vaccine 0.5 mL Syr IM ONE (05:50)
[2017-01-28] MEDS ORDERED: Lactulose 10 Gm/15 mL 30mL UDC PO PRN (07:12)
--- NOTE | 2017-01-28 08:07 | Diagnostic Imaging Report ---
CHEST X-RAY: AP view INDICATION: Chest pain COMPARISON: Chest x-ray 12/28/2016 FINDINGS: Exam is limited due to patient positioning obscuring the lower hemithorax. There appears to be old left seventh rib fracture. Increased left basal lung markings are noted. Borderline prominent heart is noted with left ventricular configuration. Tortuous aorta is noted. Degenerative changes of the spine are noted. Postsurgical changes right axillary region are noted. IMPRESSION: Increased left lower lung zone markings probably due to scarring. No focal consolidation identified. Note assessment the lower lung zones is limited due to patient positioning Borderline prominent heart with left ventricular configuration and tortuous aorta. Please correlate clinically for hypertension.
--- NOTE | 2017-01-28 08:21 | Diagnostic Imaging Report ---
Head CT without intravenous contrast Indication: pain Comparison: None Technique: Axial images were obtained from the vertex to the skull base without IV contrast. Coronal reconstructions were made. Total DLP: 830, CTDI70 FINDINGS: Images of the brain obtained without contrast demonstrate no evidence of an acute hemorrhage. Atrophy is noted. Diffuse white matter disease is noted. The ventricles and basal cisterns are patent. No mass effect or midline shift. No evidence of a skull fracture or focal soft tissue swelling. Mucus retention cyst versus polyp of the left sphenoid sinus is noted. IMPRESSION: No evidence of an acute intracranial hemorrhage Atrophy. Diffuse supratentorial white matter disease which is nonspecific and may be due to chronic microvessel ischemia. Mucous retention cyst versus polyp of left sphenoid sinus. Old left-sided zygomatic arch fracture is noted.
--- NOTE | 2017-01-28 08:38 | Diagnostic Imaging Report ---
CT abdomen and pelvis without intravenous contrast Indication: Pancreatitis Comparison: None, Technique: Axial images were obtained from the lung bases to the bilateral proximal femurs without IV contrast. Coronal reconstructions were made. total DLP: 261, CTDI5.4 FINDINGS: Chronic changes are seen with left basal densities. Exam is limited due to lack of IV contrast and patient positioning and body habitus. No evidence of focal hepatic lesions. Limited assessment of the spleen demonstrates no focal lesions. The pancreas cannot be well evaluated due to patient body habitus and lack of IV contrast. The adrenal glands are poorly visualized. No evidence of renal stones or hydronephrosis. Diffuse urinary bladder wall thickening is noted. Enlarged prostate gland is noted. Prostate gland calcifications are noted. There is irregular fluid density seen within the right pelvis. No evidence of free air. Diffuse atherosclerotic vascular disease is noted. Mild degenerative changes of spine are noted. IMPRESSION: Markedly limited exam due to body habitus, patient positioning, and lack of IV contrast. The pancreas cannot be well evaluated on this exam. Please correlate with clinical findings. If necessary short-term follow CT with IV contrast may be obtained for further assessment Small irregular fluid density area along the right hemipelvis, possibly small amount of free fluid or fluid within bowel loops. Short-term follow-up CT with IV and oral contrast would provide additional detail assessment if indicated Urinary bladder wall thickening which may be due to chronic infectious or inflammatory process or chronic bladder outlet obstruction from a prominent prostate gland. Moderate amount of stool throughout the colon. Atherosclerotic vascular disease Left basal densities probably due to subsegmental atelectasis versus scarring.
[2017-01-28] MEDS: Vitamin B Complex w/Vitamin C Tab PO SCH (09:31)
[2017-01-28] MEDS: NIFEdipine 30 mg ER Tab PO SCH (09:32)
--- NOTE | 2017-01-28 11:35 | Internal Medicine Prog Note ---
Internal Medicine Subjective - Subjective Service Date: 01/28/17 ([id number]) Internal Medicine Objective - Results Result Diagrams: 01/28/17 04:55 01/28/17 04:55 Recent Labs: Laboratory Last Values WBC 4.9 Th/cmm (4.8-10.8) D 01/28/17 04:55 RBC 4.08 Mil/cmm (4.30-5.70) L 01/28/17 04:55 Hgb 11.8 gm/dL (12-16) L 01/28/17 04:55 Hct 36.4 % (41.0-60) L 01/28/17 04:55 MCV 89.2 fl (80-99) 01/28/17 04:55 MCH 28.9 pg (26.0-30.0) 01/28/17 04:55 MCHC Differential 32.4 pg (28.0-36.0) 01/28/17 04:55 RDW 17.7 % (11.5-20.0) 01/28/17 04:55 Plt Count 284 Th/cmm (150-400) 01/28/17 04:55 MPV 8.8 fl 01/28/17 04:55 Neutrophils % 66.4 % (40.0-80.0) 01/28/17 04:55 Lymphocytes % 21.4 % (20.0-50.0) 01/28/17 04:55 Monocytes % 10.5 % (2.0-10.0) H 01/28/17 04:55 Eosinophils % 0.6 % (0.0-5.0) 01/28/17 04:55 Basophils % 1.1 % (0.0-2.0) 01/28/17 04:55 PT 10.5 SECONDS (9.5-11.5) 01/27/17 16:41 INR 1.01 (0.5-1.4) 01/27/17 16:41 PTT (Actin FS) 122.2 SECONDS (26.0-38.0) H* 01/27/17 16:41 Sodium 133 mEq/L (136-145) L 01/28/17 04:55 Potassium 4.0 mEq/L (3.5-5.1) 01/28/17 04:55 Chloride 102 mEq/L (98-107) 01/28/17 04:55 Carbon Dioxide 25.5 mEq/L (21.0-31.0) 01/28/17 04:55 Anion Gap 9.5 (7.0-16.0) 01/28/17 04:55 BUN 28 mg/dL (7-25) H 01/28/17 04:55 Creatinine 5.0 mg/dL (0.7-1.3) H* 01/28/17 04:55 Est GFR ( Amer) 15.6 ml/min (>90) 01/28/17 04:55 Est GFR (Non-Af Amer) 12.9 ml/min 01/28/17 04:55 BUN/Creatinine Ratio 5.6 01/28/17 04:55 Glucose 76 mg/dL 01/28/17 04:55 Whole Bld Lactic Acid 1.49 mmol/L (0.60-1.99) 01/27/17 16:41 Calcium 11.8 mg/dL (8.6-10.3) H 01/28/17 04:55 Total Bilirubin 0.4 mg/dL (0.3-1.0) 01/27/17 16:41 AST 12 U/L (13-39) L 01/27/17 16:41 ALT 16 U/L (7-52) 01/27/17 16:41 Alkaline Phosphatase 56 U/L (34-104) 01/27/17 16:41 Creatine Kinase 18 U/L (30-223) L 01/27/17 16:41 Troponin I 0.01 ng/mL (0.01-0.05) 01/27/17 16:41 B-Natriuretic Peptide 52.7 pg/mL (5.0-100.0) 01/27/17 16:41 Total Protein 7.3 gm/dL (6.0-8.3) 01/27/17 16:41 Albumin 3.9 gm/dL (4.2-5.5) L 01/27/17 16:41 Globulin 3.4 gm/dL 01/27/17 16:41 Albumin/Globulin Ratio 1.2 (1.0-1.8) 01/27/17 16:41 Triglycerides 87 mg/dL (<150) 01/28/17 04:55 Cholesterol 132 mg/dL (<200) 01/28/17 04:55 LDL Cholesterol Direct 62 mg/dL (75-193) L 01/28/17 04:55 HDL Cholesterol 54 mg/dL (23-92) 01/28/17 04:55 Amylase 141 U/L (29-103) H 01/28/17 04:55 Lipase 119 U/L (11-82) H 01/28/17 04:55 - Physical Exam Vitals and I&O: Vital Signs Temp 97.2 F 01/28/17 04:00 Pulse 83 01/28/17 09:32 Resp 18 01/28/17 04:00 BP 172/119 01/28/17 09:32 Pulse Ox 95 01/28/17 04:00 Intake & Output 01/27/17 01/28/17 01/28/17 18:59 06:59 18:59 Intake Total 50 Balance 50 Weight (lbs) 92 lb 8 oz Intake: Oral 50 Active Medications: Current Medications Aspirin (Ecotrin) 81 mg PO DAILY [facility] Stop: 03/29/17 08:59 Last Admin: 01/28/17 09:32 Dose: 81 mg Atorvastatin Calcium (Lipitor) 20 mg PO HS [facility] Stop: 03/29/17 20:59 Donepezil HCl (Aricept) 10 mg PO DAILY [facility] Stop: 03/29/17 08:59 Last Admin: 01/28/17 09:32 Dose: 10 mg Famotidine (Pepcid) 20 mg PO DAILY [facility] Stop: 03/29/17 08:59 Last Admin: 01/28/17 09:32 Dose: 20 mg Folic Acid (Folate) 1 mg PO DAILY [facility] Stop: 03/29/17 08:59 Last Admin: 01/28/17 09:32 Dose: 1 mg Hydralazine HCl (Apresoline) 50 mg PO TID [facility] Stop: 03/29/17 08:59 Last Admin: 01/28/17 09:31 Dose: 50 mg Sodium Chloride (Nacl 0.9%) 1,000 mls @ 50 mls/hr IV .Q20H [facility] Stop: 03/28/17 22:29 Last Admin: 01/27/17 23:43 Dose: 50 mls/hr Lactulose (Cephulac) 30 gm PO Q24H PRN PRN Reason: Constipation Lorazepam (Ativan) 1 mg IVP Q6HR PRN; Protocol PRN Reason: Agitation Stop: 03/28/17 22:21 Losartan Potassium (Cozaar) 50 mg PO DAILY [facility] Stop: 03/29/17 08:59 Last Admin: 01/28/17 09:32 Dose: 50 mg Memantine (Namenda) 5 mg PO BID [facility] Stop: 03/29/17 08:59 Last Admin: 01/28/17 09:31 Dose: 5 mg Nifedipine (Procardia Xl) 30 mg PO DAILY [facility] Stop: 03/29/17 08:59 Last Admin: 01/28/17 09:32 Dose: 30 mg Sucralfate (Carafate) 1 gm PO ACHS MIKA Stop: 03/29/17 07:29 Last Admin: 01/28/17 11:33 Dose: 1 gm Tamsulosin HCl (Flomax) 0.4 mg PO DAILY MIKA Stop: 03/29/17 08:59 Last Admin: 01/28/17 09:32 Dose: 0.4 mg Vitamin B Complex/Vit C/Folic Acid (Vitamin B Complex W/Vitamin C) 1 tab PO DAILY MIKA Stop: 03/29/17 08:59 Last Admin: 01/28/17 09:31 Dose: 1 tab - Procedures Procedures: Procedures Procedure Code Date AV FUSION DIRECT ANY SITE 09602 12/28/16 BYPASS LEFT BRACHIAL ARTERY TO UPPER ARM VEIN, OPEN APPROACH [id number] 12/28/16 INSERT TUNNELED CV CATH [id number] 12/28/16 INSERTION OF INFUSION DEV INTO L FEMOR VEIN, PERC APPROACH [id number] 12/28/16 Nutritional Asmnt/Malnutr-PDOC - Dietary Evaluation Malnutrition Findings (Please click <Entered> for more info): Nutritional Asmnt/Malnutrition Start: 01/28/17 10: 29 Text: Status: Active Freq: Document 01/28/17 10:29 INEZ (Rec: 01/28/17 10:40 [email or web address]) Nutritional Asmnt/Malnutrition Patient General Information Nutritional Screening High Risk Diagnosis PNA, Sepsis, Pancreatitis, AMS , ALOC, ESRD Pertinent Medical Hx/Surgical Hx HTN, CVA/TIA, dyslipidemia, ESRD, dementia
--- NOTE | 2017-01-28 14:30 | History & Physical ---
ADMIT DATE: 01/27/2017 HISTORY OF PRESENT ILLNESS: This is a 56-year-old male who is a residential resident who is brought here to [facility] for altered level of consciousness during dialysis for further management. The patient is now admitted to the med/surg unit. PAST MEDICAL HISTORY: Hypertension, CVA, TIA, dyslipidemia, ESRD on hemodialysis, dementia. FAMILY HISTORY: Noncontributory. SOCIAL HISTORY: The patient is a residential resident, requiring 24-hour nursing care. SURGICAL HISTORY: Dialysis catheter. MEDICATIONS: Please see medication reconciliation. REVIEW OF SYSTEMS: GENERAL: Denies any fever and chills. CARDIOVASCULAR: Denies chest pain. RESPIRATORY: Denies shortness of breath. GASTROINTESTINAL: Denies nausea, vomiting. GENITOURINARY: No dysuria. All other systems are reviewed by me and are negative. PHYSICAL EXAMINATION: SKIN: The patient is awake, alert, in apparent distress. VITAL SIGNS: Temperature 97.2, heart rate 83, blood pressure 132/93, respiration 18, O2 95%. HEENT: Head; normocephalic, atraumatic. NECK: Supple. No mass. LUNGS: Clear bilaterally. HEART: Regular rate and rhythm. ABDOMEN: Soft, nontender. LABORATORY DATA: WBC 4.9, H and H 11.8 and 36.4 and platelet 284. Sodium 132, potassium 4.0, chloride 102, BUN 28, creatinine 5.0. Amylase and lipase 141 and 119. DIAGNOSTIC DATA: The patient had a CT of abdomen and pelvis done and the impression is markedly limited exam due to body habitus, patient positioning and lack of IV contrast. Pancreas cannot be well evaluated on this exam, small irregular fluid density area along with right hemipelvis, possibly small amount of free fluid or fluid within bowel loop, short term followup CTA with IV contrast. The patient had a CT of the head done and the impression is no evidence of acute intracranial hemorrhage, atrophy, diffuse supratentorial white matter disease, which is nonspecific and may be due to chronic micro-vessel ischemia, mucous retention cyst versus polyp of the left sphenoid sinus, old left-sided zygomatic arch fracture is noted. The patient had a chest x-ray done and the impression is increased left lower lung zones markings, probably due to scarring. No focal consolidation identified, borderline prominent heart with left ventricular configuration, tortuous aorta. ASSESSMENT: Acute pancreatitis, ALOC, ESRD on hemodialysis, hyponatremia, hypocalcemia, pneumonia, hypertension, history of CVA, dyslipidemia. PLAN: The patient to be admitted to the telemetry unit. We will have Nephrology consultation. Fall precautions will be initiated. We will keep patient on renal diet. We will monitor the patient's blood pressure, keep patient on empiric IV antibiotics. We will continue to follow this patient. [facility]# [id number]
[2017-01-28] MEDS: Sodium Chloride 0.9% 1,000 ML IV SCH (18:31)
[2017-01-28] MEDS: Atorvastatin Calcium 10 MG TAB PO SCH (20:37)
[2017-01-29] MEDS ORDERED: Albumin 25% 25gm/100mL 25 GM/100 ML BTL IV PRN
[2017-01-29 06:06] LABS: % BASOPHILS 0.2 % (0.0-2.0); % EOSINOPHILS 0.8 % (0.0-5.0); % LYMPHOCYTES 20.1 % (20.0-50.0); % MONOCYTES 8.9 % (2.0-10.0); HEMOGLOBIN 10.7 gm/dL (12-16); MEAN CELL VOLUME 88.3 fl (80-99); MEAN CORPUSCULAR HGB CONC 32.9 pg (28.0-36.0); MEAN PLATELET VOLUME 8.6 fl; NEUTROPHILE ABSOLUTE 3.9 Th/cmm (1.8-8.0); PLATELET COUNT 292 Th/cmm (150-400); RED BLOOD COUNT 3.68 Mil/cmm (4.30-5.70); RED CELL DISTRIBUTION WIDTH 17.6 % (11.5-20.0); WHITE BLOOD COUNT 5.5 Th/cmm (4.8-10.8)
[2017-01-29 06:20] LABS: HEMATOCRIT 32.5 % (41.0-60)
[2017-01-29 06:38] LABS: ANION GAP 10.7 (7.0-16.0); BUN/CREATININE RATIO 6.1; CALCIUM SERUM 11.3 mg/dL (8.6-10.3); CARBON DIOXIDE 22.5 mEq/L (21.0-31.0); POTASSIUM SERUM 4.2 mEq/L (3.5-5.1)
[2017-01-29 06:53] LABS: CREATININE - SERUM 6.9 mg/dL (0.7-1.3)
--- NOTE | 2017-01-29 09:02 | Consultation ---
DATE OF CONSULTATION: 01/28/2017 REASON FOR CONSULT: Electrolyte imbalance and fluid management. HISTORY OF PRESENT ILLNESS: This is a 56-year-old male with past medical history of end-stage renal disease, on hemodialysis, who was brought in because of altered level of consciousness. A few hours prior to admission, the patient developed altered level of consciousness during dialysis treatment. He was barely responsive. Thus, he was brought to the Emergency Room. CT of the head revealed no acute disease/atrophy. Chest x-ray revealed no focal consolidation, but with left lower lobe scar. Amylase/lipase were mildly elevated. Thus CT of the abdomen was done and this revealed no pancreatitis. White count was stable at 6.6. The patient was afebrile. He has no nausea and vomiting, abdominal pain, diarrhea. PAST MEDICAL HISTORY: 1. End-stage renal disease, on hemodialysis. 2. Essential hypertension. 3. TIA. 4. Status post CVA. 5. Dementia without behavioral disturbance. 6. BPH. 7. Dyslipidemia. CURRENT MEDICATIONS: He is currently on aspirin, atorvastatin, clonidine, donepezil, famotidine, folic acid, hydralazine, lactulose, losartan, Namenda, nifedipine, sucralfate, tamsulosin. ALLERGIES: No known drug allergies. SOCIAL AND FAMILY HISTORY: I was unable to obtain from the patient because he is currently nonverbal. REVIEW OF SYSTEMS: Again, I was unable to decipher directly from the patient because he does not respond to my inquiries. PHYSICAL EXAMINATION: GENERAL: The patient is awake, but cachectic, remains nonverbal, not in any distress. VITAL SIGNS: His blood pressure is 125/101, pulse 91, temperature 99.2 degrees. SKIN: Good turgor, warm, no rash, no jaundice appreciated. HEENT: Head normocephalic, atraumatic. Eyes: Extraocular muscles intact. Pupils equal, round, reactive to light and accommodates. Anicteric sclerae. Pale conjunctivae. Nose, midline nasal septum. Mouth, moist mucosa with adequate dentition. NECK: Supple, no adenopathy, no thyromegaly, no bruits. Trachea palpated in the midline. CHEST AND CVS: S1, S2. No rub, murmur. No gallop appreciated. Point of maximal impulse fifth intercostal space, left midclavicular line. No abdominal or femoral bruits appreciated. LUNGS: Equal expansion. No use of accessory muscles. No supraclavicular retractions. Decreased breath sounds but clear to auscultation without any wheeze. ABDOMEN: Scaphoid, soft. Positive for bowel sounds. No bruits either diastolic or systolic. RECTAL: Lax sphincter tone. GENITOURINARY: Normal appearing male genitalia. MUSCULOSKELETAL: No effusions present in his joints, but unable to assess his range of motion. EXTREMITIES: He has contractures involving his lower extremities as well as upper extremities, no evidence of any edema, no cyanosis. He has a palpable femoral, but unable to fully appreciate popliteal and dorsalis pedis pulses due to contractures. NEUROLOGIC: The patient is awake, but remains nonverbal, unable to follow my neuro commands. LABORATORY DATA: Revealed a white count of 4.9, hemoglobin 11.8, hematocrit 36.4, platelets 284, polys 66.4%. PTT is 122. Sodium 133, potassium 4, chloride 102, bicarb 25, BUN 28, creatinine 5, glucose 76, calcium 11.8, amylase 141, lipase 119. IMPRESSION: 1. End-stage renal disease, on hemodialysis. 2. Altered level of consciousness, possibly due to acute hypotension during dialysis treatment but the patient now has recovered and more alert. 3. Essential hypertension. 4. History of TIA. 5. Dementia without behavioral disturbance. 6. BPH. 7. Dyslipidemia. 8. Mild pancreatitis, which is improving. PLAN: 1. Hemodialysis in a.m. as scheduled. 2. Monitor neuro status. 3. Control blood pressure. Thank you Dr. Briceño for this consult. I will follow the patient closely with you. JOB# [id number]
--- NOTE | 2017-01-29 09:53 | General Progress Note ---
Subjective - Review of Systems Events since last encounter: patient with no acute distress Objective - Results Result Diagrams: 01/29/17 05:30 01/29/17 05:30 Recent Labs: Laboratory Last Values WBC 5.5 Th/cmm (4.8-10.8) 01/29/17 05:30 RBC 3.68 Mil/cmm (4.30-5.70) L 01/29/17 05:30 Hgb 10.7 gm/dL (12-16) L 01/29/17 05:30 Hct 32.5 % (41.0-60) L D 01/29/17 05:30 MCV 88.3 fl (80-99) 01/29/17 05:30 MCH 29.0 pg (26.0-30.0) 01/29/17 05:30 MCHC Differential 32.9 pg (28.0-36.0) 01/29/17 05:30 RDW 17.6 % (11.5-20.0) 01/29/17 05:30 Plt Count 292 Th/cmm (150-400) 01/29/17 05:30 MPV 8.6 fl 01/29/17 05:30 Neutrophils % 70.0 % (40.0-80.0) 01/29/17 05:30 Lymphocytes % 20.1 % (20.0-50.0) 01/29/17 05:30 Monocytes % 8.9 % (2.0-10.0) 01/29/17 05:30 Eosinophils % 0.8 % (0.0-5.0) 01/29/17 05:30 Basophils % 0.2 % (0.0-2.0) 01/29/17 05:30 PT 10.5 SECONDS (9.5-11.5) 01/27/17 16:41 INR 1.01 (0.5-1.4) 01/27/17 16:41 PTT (Actin FS) 122.2 SECONDS (26.0-38.0) H* 01/27/17 16:41 Sodium 136 mEq/L (136-145) 01/29/17 05:30 Potassium 4.2 mEq/L (3.5-5.1) 01/29/17 05:30 Chloride 107 mEq/L (98-107) 01/29/17 05:30 Carbon Dioxide 22.5 mEq/L (21.0-31.0) 01/29/17 05:30 Anion Gap 10.7 (7.0-16.0) 01/29/17 05:30 BUN 42 mg/dL (7-25) H 01/29/17 05:30 Creatinine 6.9 mg/dL (0.7-1.3) H* 01/29/17 05:30 Est GFR ( Amer) 10.8 ml/min (>90) 01/29/17 05:30 Est GFR (Non-Af Amer) 8.9 ml/min 01/29/17 05:30 BUN/Creatinine Ratio 6.1 01/29/17 05:30 Glucose 81 mg/dL 01/29/17 05:30 Whole Bld Lactic Acid 1.49 mmol/L (0.60-1.99) 01/27/17 16:41 Calcium 11.3 mg/dL (8.6-10.3) H 01/29/17 05:30 Total Bilirubin 0.4 mg/dL (0.3-1.0) 01/27/17 16:41 AST 12 U/L (13-39) L 01/27/17 16:41 ALT 16 U/L (7-52) 01/27/17 16:41 Alkaline Phosphatase 56 U/L (34-104) 01/27/17 16:41 Creatine Kinase 18 U/L (30-223) L 01/27/17 16:41 Troponin I 0.01 ng/mL (0.01-0.05) 01/27/17 16:41 B-Natriuretic Peptide 52.7 pg/mL (5.0-100.0) 01/27/17 16:41 Total Protein 7.3 gm/dL (6.0-8.3) 01/27/17 16:41 Albumin 3.9 gm/dL (4.2-5.5) L 01/27/17 16:41 Globulin 3.4 gm/dL 01/27/17 16:41 Albumin/Globulin Ratio 1.2 (1.0-1.8) 01/27/17 16:41 Triglycerides 87 mg/dL (<150) 01/28/17 04:55 Cholesterol 132 mg/dL (<200) 01/28/17 04:55 LDL Cholesterol Direct 62 mg/dL (75-193) L 01/28/17 04:55 HDL Cholesterol 54 mg/dL (23-92) 01/28/17 04:55 Amylase 141 U/L (29-103) H 01/28/17 04:55 Lipase 119 U/L (11-82) H 01/28/17 04:55 - Physical Exam Vitals and I&O: Vital Signs Temp 97.1 F 01/29/17 00:00 Pulse 92 01/29/17 04:20 Resp 19 01/29/17 04:20 BP 142/83 01/29/17 04:20 Pulse Ox 99 01/29/17 04:20 Intake & Output 01/28/17 01/29/17 01/29/17 18:59 06:59 18:59 Intake Total 940 609.167 Balance 940 609.167 Weight (lbs) 41.73 kg 44.724 kg Intake: Intake, IV Amount 940 579.167 Sodium Chloride 0.9% 1, 940 579.167 000 ml @ 50 mls/hr IV . Q20H [facility] Rx#:[id number] Oral 30 Other: # Voids 0 # Bowel Movements 0 Active Medications: Current Medications Aspirin (Ecotrin) 81 mg PO DAILY [facility] Stop: 03/29/17 08:59 Last Admin: 01/29/17 09:41 Dose: 81 mg Atorvastatin Calcium (Lipitor) 20 mg PO HS [facility] Stop: 03/29/17 20:59 Last Admin: 01/28/17 20:37 Dose: 20 mg Donepezil HCl (Aricept) 10 mg PO DAILY [facility] Stop: 03/29/17 08:59 Last Admin: 01/29/17 09:46 Dose: 10 mg Famotidine (Pepcid) 20 mg PO DAILY [facility] Stop: 03/29/17 08:59 Last Admin: 01/29/17 09:40 Dose: 20 mg Folic Acid (Folate) 1 mg PO DAILY [facility] Stop: 03/29/17 08:59 Last Admin: 01/29/17 09:45 Dose: 1 mg Hydralazine HCl (Apresoline) 50 mg PO TID [facility] Stop: 03/29/17 08:59 Last Admin: 01/28/17 20:37 Dose: 50 mg Sodium Chloride (Nacl 0.9%) 1,000 mls @ 50 mls/hr IV .Q20H [facility] Stop: 03/28/17 22:29 Last Infusion: 01/29/17 06:06 Dose: 50 mls/hr Albumin Human (Albuminar 25%) 25 gm in 100 mls @ 50 mls/hr IV PRN PRN PRN Reason: BP Support During HD Lactulose (Cephulac) 30 gm PO Q24H PRN PRN Reason: Constipation Lorazepam (Ativan) 1 mg IVP Q6HR PRN; Protocol PRN Reason: Agitation Stop: 03/28/17 22:21 Losartan Potassium (Cozaar) 50 mg PO DAILY [facility] Stop: 03/29/17 08:59 Last Admin: 01/28/17 09:32 Dose: 50 mg Memantine (Namenda) 5 mg PO BID [facility] Stop: 03/29/17 08:59 Last Admin: 01/29/17 09:46 Dose: 5 mg Miscellaneous (Clinical Monitoring) 1 ea MC DAILY PRN PRN Reason: RENAL Stop: 03/29/17 11:42 Nifedipine (Procardia Xl) 30 mg PO DAILY [facility] Stop: 03/29/17 08:59 Last Admin: 01/28/17 09:32 Dose: 30 mg Sucralfate (Carafate) 1 gm PO ACHS [facility] Stop: 03/29/17 07:29 Last Admin: 01/29/17 07:02 Dose: 1 gm Tamsulosin HCl (Flomax) 0.4 mg PO DAILY [facility] Stop: 03/29/17 08:59 Last Admin: 01/29/17 09:46 Dose: 0.4 mg Vitamin B Complex/Vit C/Folic Acid (Vitamin B Complex W/Vitamin C) 1 tab PO DAILY [facility] Stop: 03/29/17 08:59 Last Admin: 01/28/17 09:31 Dose: 1 tab General: No acute distress HEENT: Atraumatic, PERRLA Neck: Thyromegaly Cardiovascular: Regular rate, Normal S1, Normal S2 Abdomen: Bowel sounds - Procedures Procedures: Procedures Procedure Code Date AV FUSION DIRECT ANY SITE 92755 12/28/16 BYPASS LEFT BRACHIAL ARTERY TO UPPER ARM VEIN, OPEN APPROACH [id number] 12/28/16 INSERT TUNNELED CV CATH 21383 12/28/16 INSERTION OF INFUSION DEV INTO L FEMOR VEIN, PERC APPROACH 69CD60Y 12/28/16 Assessment/Plan - Problem List Patient Problems: All Active Problems AV shunt malfunction (Acute) T82.591A Anemia (Acute) D64.9 ESRD (end stage renal disease) on dialysis (Acute) N18.6, Z99.2 H/O: CVA (cerebrovascular accident) (Acute) Z86.73 HTN (hypertension) (Acute) I10 chonic encephalopathy (Acute) - Plan Plan: as per order sheet Nutritional Asmnt/Malnutr-PDOC - Dietary Evaluation Malnutrition Findings (Please click <Entered> for more info): Nutritional Asmnt/Malnutrition Start: 01/28/17 10: 29 Text: Status: Active Freq: Document 01/28/17 10:29 INEZ (Rec: 01/28/17 10:40 INEZ [email or web address]) Nutritional Asmnt/Malnutrition Patient General Information Nutritional Screening High Risk Diagnosis PNA, Sepsis, Pancreatitis, AMS , ALOC, ESRD on dialysis Pertinent Medical Hx/Surgical Hx HTN, CVA/TIA, dyslipidemia, ESRD, dementia Subjective Information Pt was confused, not able to talk during the time of visit. Spoke with [employer], pt has teeth, comsumed 50% of breakfast this morning, eating well on cream of wheat but slowly on eggs and pancake. Pt appeared very skinny. Physical exam performed, mild muscle depletion on arms, fat/muscle wasting on shoulder and legs. Last dialysis 01/27 Current Diet Order/ Nutrition Support Renal, low Na Pertinent Medications Folate, Nacl IV, Vitamin B, Vitamin C Pertinent Labs 01/28: Na 133L, K 4.0, Cl 102, BUN 28H, Cr 5.0H, Glu 76, Ca 11.8H 01/27: Alb 3.9 Nutritional Hx/Data Height 1.78 m Height (Calculated Centimeters) 177.8 Current Weight (lbs) 43.182 kg Weight (Calculated Kilograms) 43.2 Weight (Calculated Grams) 04591.0 [place] Body Weight 166 % [place] Body Weight 57 Body Mass Index (BMI) 13.6 Weight Status Underweight GI Symptoms Difficult in: Chewing Food Allergies No Usual diet at home Previous diet at nursing facility per chart: Renal Pureed Skin Integrity/Comment: intact Current %PO Fair (50-74%) Estimated Nutritional Goals BEE in Kcals: Adj wt of IBW Calories/Kcals/Kg 30-35kcal/kg based on adj wt 67kg Kcals Calculated Protein: Adj wt of IBW Protein g/k.5-2.0 Protein Calculated 100-134 Fluid: ml Per MD d/t ESRD Nutritional Problem 2. Problem Problem Increased nutrition needs ( calorie and protein) Etiology increased metabolic demands for healing and recovery Signs/Symptoms: dx of sepsis, ESRD on dialysis , muscle/fast wasting 1. Problem Problem Inadequate oral intake Etiology pt having difficulty on chewing regular diet Signs/Symptoms: PO intake 50% Malnutrition Alert Body Fat Depletion (Non-Severe) Mild Depletion Muscle Mass (Severe) Mod to Severe Depletion Protein-Calorie Malnutrition Severe Is there a minimum of two criteria Yes selected? Query Text:Check all the applicable criteria. A minimum of two criteria are recommended for diagnosis of either severe or non-severe malnutrition. Intervention/Recommendation Recommendations by RD Protein supplementation Comments 1. Recommend diet order change to Renal Pureed. Made aware of RN to correct diet order, called kitchen to serve Renal Pureed diet for lunch. 2. Recommend Novasource Renal BID to increase nutritional intake 3. Monitor diet tolerance, PO intake, labs, wt weekly and skin integrity. 4. F/U as high risk in 2-3 days, 01/30-01/31 Expected Outcomes/Goals Expected Outcomes/Goals 1. PO to tolerate renal pureed diet, PO intake >75% to meet nutritional needs, pt to consume supplements 2. wt to remain stable, change toward to IBW 3. Labs to improve 4. skin to remain intact
[2017-01-29] MEDS: Vitamin B Complex w/Vitamin C Tab PO SCH (11:56)
[2017-01-29] MEDS: NIFEdipine 30 mg ER Tab PO SCH (11:56)
--- NOTE | 2017-01-29 15:36 | General Progress Note ---
Subjective - Review of Systems Service Date: 01/29/17 Subjective: awake, comfortable, nonverbal Objective - Results Result Diagrams: 01/29/17 05:30 01/29/17 05:30 Recent Labs: Laboratory Last Values WBC 5.5 Th/cmm (4.8-10.8) 01/29/17 05:30 RBC 3.68 Mil/cmm (4.30-5.70) L 01/29/17 05:30 Hgb 10.7 gm/dL (12-16) L 01/29/17 05:30 Hct 32.5 % (41.0-60) L D 01/29/17 05:30 MCV 88.3 fl (80-99) 01/29/17 05:30 MCH 29.0 pg (26.0-30.0) 01/29/17 05:30 MCHC Differential 32.9 pg (28.0-36.0) 01/29/17 05:30 RDW 17.6 % (11.5-20.0) 01/29/17 05:30 Plt Count 292 Th/cmm (150-400) 01/29/17 05:30 MPV 8.6 fl 01/29/17 05:30 Neutrophils % 70.0 % (40.0-80.0) 01/29/17 05:30 Lymphocytes % 20.1 % (20.0-50.0) 01/29/17 05:30 Monocytes % 8.9 % (2.0-10.0) 01/29/17 05:30 Eosinophils % 0.8 % (0.0-5.0) 01/29/17 05:30 Basophils % 0.2 % (0.0-2.0) 01/29/17 05:30 PT 10.5 SECONDS (9.5-11.5) 01/27/17 16:41 INR 1.01 (0.5-1.4) 01/27/17 16:41 PTT (Actin FS) 122.2 SECONDS (26.0-38.0) H* 01/27/17 16:41 Sodium 136 mEq/L (136-145) 01/29/17 05:30 Potassium 4.2 mEq/L (3.5-5.1) 01/29/17 05:30 Chloride 107 mEq/L (98-107) 01/29/17 05:30 Carbon Dioxide 22.5 mEq/L (21.0-31.0) 01/29/17 05:30 Anion Gap 10.7 (7.0-16.0) 01/29/17 05:30 BUN 42 mg/dL (7-25) H 01/29/17 05:30 Creatinine 6.9 mg/dL (0.7-1.3) H* 01/29/17 05:30 Est GFR ( Amer) 10.8 ml/min (>90) 01/29/17 05:30 Est GFR (Non-Af Amer) 8.9 ml/min 01/29/17 05:30 BUN/Creatinine Ratio 6.1 01/29/17 05:30 Glucose 81 mg/dL 01/29/17 05:30 POC Glucose 113 MG/DL (70-105) H 01/29/17 13:02 Whole Bld Lactic Acid 1.49 mmol/L (0.60-1.99) 01/27/17 16:41 Calcium 11.3 mg/dL (8.6-10.3) H 01/29/17 05:30 Total Bilirubin 0.4 mg/dL (0.3-1.0) 01/27/17 16:41 AST 12 U/L (13-39) L 01/27/17 16:41 ALT 16 U/L (7-52) 01/27/17 16:41 Alkaline Phosphatase 56 U/L (34-104) 01/27/17 16:41 Creatine Kinase 18 U/L (30-223) L 01/27/17 16:41 Troponin I 0.01 ng/mL (0.01-0.05) 01/27/17 16:41 B-Natriuretic Peptide 52.7 pg/mL (5.0-100.0) 01/27/17 16:41 Total Protein 7.3 gm/dL (6.0-8.3) 01/27/17 16:41 Albumin 3.9 gm/dL (4.2-5.5) L 01/27/17 16:41 Globulin 3.4 gm/dL 01/27/17 16:41 Albumin/Globulin Ratio 1.2 (1.0-1.8) 01/27/17 16:41 Triglycerides 87 mg/dL (<150) 01/28/17 04:55 Cholesterol 132 mg/dL (<200) 01/28/17 04:55 LDL Cholesterol Direct 62 mg/dL (75-193) L 01/28/17 04:55 HDL Cholesterol 54 mg/dL (23-92) 01/28/17 04:55 Amylase 141 U/L (29-103) H 01/28/17 04:55 Lipase 119 U/L (11-82) H 01/28/17 04:55 - Physical Exam Vitals and I&O: Vital Signs Temp 97.1 F 01/29/17 00:00 Pulse 71 01/29/17 11:58 Resp 19 01/29/17 04:20 BP 159/100 01/29/17 11:58 Pulse Ox 99 01/29/17 04:20 Intake & Output 01/28/17 01/29/17 01/29/17 18:59 06:59 18:59 Intake Total 940 609.167 Balance 940 609.167 Weight (lbs) 41.73 kg 44.724 kg Intake: Intake, IV Amount 940 579.167 Sodium Chloride 0.9% 1, 940 579.167 000 ml @ 50 mls/hr IV . Q20H [facility] Rx#:[id number] Oral 30 Other: # Voids 0 # Bowel Movements 0 Active Medications: Current Medications Aspirin (Ecotrin) 81 mg PO DAILY [facility] Stop: 03/29/17 08:59 Last Admin: 01/29/17 09:41 Dose: 81 mg Atorvastatin Calcium (Lipitor) 20 mg PO HS [facility] Stop: 03/29/17 20:59 Last Admin: 01/28/17 20:37 Dose: 20 mg Donepezil HCl (Aricept) 10 mg PO DAILY [facility] Stop: 03/29/17 08:59 Last Admin: 01/29/17 09:46 Dose: 10 mg Famotidine (Pepcid) 20 mg PO DAILY [facility] Stop: 03/29/17 08:59 Last Admin: 01/29/17 09:40 Dose: 20 mg Folic Acid (Folate) 1 mg PO DAILY MIKA Stop: 03/29/17 08:59 Last Admin: 01/29/17 09:45 Dose: 1 mg Hydralazine HCl (Apresoline) 50 mg PO TID MIKA Stop: 03/29/17 08:59 Last Admin: 01/29/17 11:55 Dose: 50 mg Sodium Chloride (Nacl 0.9%) 1,000 mls @ 50 mls/hr IV .Q20H MIKA Stop: 03/28/17 22:29 Last Infusion: 01/29/17 06:06 Dose: 50 mls/hr Albumin Human (Albuminar 25%) 25 gm in 100 mls @ 50 mls/hr IV PRN PRN PRN Reason: BP Support During HD Lactulose (Cephulac) 30 gm PO Q24H PRN PRN Reason: Constipation Lorazepam (Ativan) 1 mg IVP Q6HR PRN; Protocol PRN Reason: Agitation Stop: 03/28/17 22:21 Losartan Potassium (Cozaar) 50 mg PO DAILY [facility] Stop: 03/29/17 08:59 Last Admin: 01/29/17 11:58 Dose: 50 mg Memantine (Namenda) 5 mg PO BID MIKA Stop: 03/29/17 08:59 Last Admin: 01/29/17 09:46 Dose: 5 mg Miscellaneous (Clinical Monitoring) 1 ea MC DAILY PRN PRN Reason: RENAL Stop: 03/29/17 11:42 Nifedipine (Procardia Xl) 30 mg PO DAILY MIKA Stop: 03/29/17 08:59 Last Admin: 01/29/17 11:56 Dose: 30 mg Sucralfate (Carafate) 1 gm PO ACHS MIKA Stop: 03/29/17 07:29 Last Admin: 01/29/17 07:02 Dose: 1 gm Tamsulosin HCl (Flomax) 0.4 mg PO DAILY MIKA Stop: 03/29/17 08:59 Last Admin: 01/29/17 09:46 Dose: 0.4 mg Vitamin B Complex/Vit C/Folic Acid (Vitamin B Complex W/Vitamin C) 1 tab PO DAILY MIKA Stop: 03/29/17 08:59 Last Admin: 01/29/17 11:56 Dose: 1 tab General: Alert, No acute distress HEENT: Atraumatic, PERRLA Neck: Supple, +2 carotid pulse wo bruit Cardiovascular: Regular rate, Normal S1, Normal S2 Abdomen: Bowel sounds, Soft Extremities: no Clubbing, no Edema Neurological: Sensation intact Skin: no Rash Psych/Mental Status: Mood NL - Procedures Procedures: Procedures Procedure Code Date AV FUSION DIRECT ANY SITE 05124 12/28/16 BYPASS LEFT BRACHIAL ARTERY TO UPPER ARM VEIN, OPEN APPROACH [id number] 12/28/16 INSERT TUNNELED CV CATH 54675 12/28/16 INSERTION OF INFUSION DEV INTO L FEMOR VEIN, PERC APPROACH [id number] 12/28/16 Assessment/Plan - Problem List Patient Problems: All Active Problems AV shunt malfunction (Acute) T82.591A Anemia (Acute) D64.9 ESRD (end stage renal disease) on dialysis (Acute) N18.6, Z99.2 H/O: CVA (cerebrovascular accident) (Acute) Z86.73 HTN (hypertension) (Acute) I10 chonic encephalopathy (Acute) - Assessment Assessment: ESRD on HD ALOC possibly 2nd to period of hypotension Ess Htn TIA BPH dyslipidemia Dementia w/o beh disturbance - Plan Plan: Lab - Result Diagrams 01/29/17 05:30 01/29/17 05:30 Current Medications Aspirin (Ecotrin) 81 mg PO DAILY MIKA Stop: 03/29/17 08:59 Last Admin: 01/29/17 09:41 Dose: 81 mg Atorvastatin Calcium (Lipitor) 20 mg PO HS MIKA Stop: 03/29/17 20:59 Last Admin: 01/28/17 20:37 Dose: 20 mg Donepezil HCl (Aricept) 10 mg PO DAILY MIKA Stop: 03/29/17 08:59 Last Admin: 01/29/17 09:46 Dose: 10 mg Famotidine (Pepcid) 20 mg PO DAILY MIKA Stop: 03/29/17 08:59 Last Admin: 01/29/17 09:40 Dose: 20 mg Folic Acid (Folate) 1 mg PO DAILY MIKA Stop: 03/29/17 08:59 Last Admin: 01/29/17 09:45 Dose: 1 mg Hydralazine HCl (Apresoline) 50 mg PO TID MIKA Stop: 03/29/17 08:59 Last Admin: 01/29/17 11:55 Dose: 50 mg Sodium Chloride (Nacl 0.9%) 1,000 mls @ 50 mls/hr IV .Q20H MIKA Stop: 03/28/17 22:29 Last Infusion: 01/29/17 06:06 Dose: 50 mls/hr Albumin Human (Albuminar 25%) 25 gm in 100 mls @ 50 mls/hr IV PRN PRN PRN Reason: BP Support During HD Lactulose (Cephulac) 30 gm PO Q24H PRN PRN Reason: Constipation Lorazepam (Ativan) 1 mg IVP Q6HR PRN; Protocol PRN Reason: Agitation Stop: 03/28/17 22:21 Losartan Potassium (Cozaar) 50 mg PO DAILY MIKA Stop: 03/29/17 08:59 Last Admin: 01/29/17 11:58 Dose: 50 mg Memantine (Namenda) 5 mg PO BID MIKA Stop: 03/29/17 08:59 Last Admin: 01/29/17 09:46 Dose: 5 mg Miscellaneous (Clinical Monitoring) 1 ea MC DAILY PRN PRN Reason: RENAL Stop: 03/29/17 11:42 Nifedipine (Procardia Xl) 30 mg PO DAILY MIKA Stop: 03/29/17 08:59 Last Admin: 01/29/17 11:56 Dose: 30 mg Sucralfate (Carafate) 1 gm PO ACHS MIKA Stop: 03/29/17 07:29 Last Admin: 01/29/17 07:02 Dose: 1 gm Tamsulosin HCl (Flomax) 0.4 mg PO DAILY MIKA Stop: 03/29/17 08:59 Last Admin: 01/29/17 09:46 Dose: 0.4 mg Vitamin B Complex/Vit C/Folic Acid (Vitamin B Complex W/Vitamin C) 1 tab PO DAILY MIKA Stop: 03/29/17 08:59 Last Admin: 01/29/17 11:56 Dose: 1 tab Lab - Result Diagrams 01/29/17 05:30 01/29/17 05:30 scheduled for hd today pt. more alert, does no talk Nutritional Asmnt/Malnutr-PDOC - Dietary Evaluation Malnutrition Findings (Please click <Entered> for more info): Nutritional Asmnt/Malnutrition Start: 01/28/17 10: 29 Text: Status: Active Freq: Document 01/28/17 10:29 INEZ (Rec: 01/28/17 10:40 INEZ [email or web address]) Nutritional Asmnt/Malnutrition Patient General Information Nutritional Screening High Risk Diagnosis PNA, Sepsis, Pancreatitis, AMS , ALOC, ESRD on dialysis Pertinent Medical Hx/Surgical Hx HTN, CVA/TIA, dyslipidemia, ESRD, dementia Subjective Information Pt was confused, not able to talk during the time of visit. Spoke with SWEATB[employer] CUTTING MACHINE OPERATOR, pt has teeth, comsumed 50% of breakfast this morning, eating well on cream of wheat but slowly on eggs and pancake. Pt appeared very skinny. Physical exam performed, mild muscle depletion on arms, fat/muscle wasting on shoulder and legs. Last dialysis 01/27 Current Diet Order/ Nutrition Support Renal, low Na Pertinent Medications Folate, Nacl IV, Vitamin B, Vitamin C Pertinent Labs 01/28: Na 133L, K 4.0, Cl 102, BUN 28H, Cr 5.0H, Glu 76, Ca 11.8H 01/27: Alb 3.9 Nutritional Hx/Data Height 1.78 m Height (Calculated Centimeters) 177.8 Current Weight (lbs) 43.182 kg Weight (Calculated Kilograms) 43.2 Weight (Calculated Grams) 97448.0 [place] Body Weight 166 % [place] Body Weight 57 Body Mass Index (BMI) 13.6 Weight Status Underweight GI Symptoms Difficult in: Chewing Food Allergies No Usual diet at home Previous diet at nursing facility per chart: Renal Pureed Skin Integrity/Comment: intact Current %PO Fair (50-74%) Estimated Nutritional Goals BEE in Kcals: Adj wt of IBW Calories/Kcals/Kg 30-35kcal/kg based on adj wt 67kg Kcals Calculated Protein: Adj wt of IBW Protein g/k.5-2.0 Protein Calculated 100-134 Fluid: ml Per MD d/t ESRD Nutritional Problem 2. Problem Problem Increased nutrition needs ( calorie and protein) Etiology increased metabolic demands for healing and recovery Signs/Symptoms: dx of sepsis, ESRD on dialysis , muscle/fast wasting 1. Problem Problem Inadequate oral intake Etiology pt having difficulty on chewing regular diet Signs/Symptoms: PO intake 50% Malnutrition Alert Body Fat Depletion (Non-Severe) Mild Depletion Muscle Mass (Severe) Mod to Severe Depletion Protein-Calorie Malnutrition Severe Is there a minimum of two criteria Yes selected? Query Text:Check all the applicable criteria. A minimum of two criteria are recommended for diagnosis of either severe or non-severe malnutrition. Intervention/Recommendation Recommendations by RD Protein supplementation Comments 1. Recommend diet order change to Renal Pureed. Made aware of RN to correct diet order, called kitchen to serve Renal Pureed diet for lunch. 2. Recommend Novasource Renal BID to increase nutritional intake 3. Monitor diet tolerance, PO intake, labs, wt weekly and skin integrity. 4. F/U as high risk in 2-3 days, 01/30-01/31 Expected Outcomes/Goals Expected Outcomes/Goals 1. PO to tolerate renal pureed diet, PO intake >75% to meet nutritional needs, pt to consume supplements 2. wt to remain stable, change toward to IBW 3. Labs to improve 4. skin to remain intact
[2017-01-29] MEDS: Atorvastatin Calcium 10 MG TAB PO SCH (20:07)
[2017-01-30] MEDS: Vitamin B Complex w/Vitamin C Tab PO SCH (08:14)
[2017-01-30] MEDS: NIFEdipine 30 mg ER Tab PO SCH (08:15)
--- NOTE | 2017-01-30 08:16 | General Progress Note ---
Subjective - Review of Systems Events since last encounter: patient awake no distress Objective - Results Result Diagrams: 01/29/17 05:30 01/29/17 05:30 Recent Labs: Laboratory Last Values WBC 5.5 Th/cmm (4.8-10.8) 01/29/17 05:30 RBC 3.68 Mil/cmm (4.30-5.70) L 01/29/17 05:30 Hgb 10.7 gm/dL (12-16) L 01/29/17 05:30 Hct 32.5 % (41.0-60) L D 01/29/17 05:30 MCV 88.3 fl (80-99) 01/29/17 05:30 MCH 29.0 pg (26.0-30.0) 01/29/17 05:30 MCHC Differential 32.9 pg (28.0-36.0) 01/29/17 05:30 RDW 17.6 % (11.5-20.0) 01/29/17 05:30 Plt Count 292 Th/cmm (150-400) 01/29/17 05:30 MPV 8.6 fl 01/29/17 05:30 Neutrophils % 70.0 % (40.0-80.0) 01/29/17 05:30 Lymphocytes % 20.1 % (20.0-50.0) 01/29/17 05:30 Monocytes % 8.9 % (2.0-10.0) 01/29/17 05:30 Eosinophils % 0.8 % (0.0-5.0) 01/29/17 05:30 Basophils % 0.2 % (0.0-2.0) 01/29/17 05:30 PT 10.5 SECONDS (9.5-11.5) 01/27/17 16:41 INR 1.01 (0.5-1.4) 01/27/17 16:41 PTT (Actin FS) 122.2 SECONDS (26.0-38.0) H* 01/27/17 16:41 Sodium 136 mEq/L (136-145) 01/29/17 05:30 Potassium 4.2 mEq/L (3.5-5.1) 01/29/17 05:30 Chloride 107 mEq/L (98-107) 01/29/17 05:30 Carbon Dioxide 22.5 mEq/L (21.0-31.0) 01/29/17 05:30 Anion Gap 10.7 (7.0-16.0) 01/29/17 05:30 BUN 42 mg/dL (7-25) H 01/29/17 05:30 Creatinine 6.9 mg/dL (0.7-1.3) H* 01/29/17 05:30 Est GFR ( Amer) 10.8 ml/min (>90) 01/29/17 05:30 Est GFR (Non-Af Amer) 8.9 ml/min 01/29/17 05:30 BUN/Creatinine Ratio 6.1 01/29/17 05:30 Glucose 81 mg/dL 01/29/17 05:30 POC Glucose 113 MG/DL (70-105) H 01/29/17 13:02 Whole Bld Lactic Acid 1.49 mmol/L (0.60-1.99) 01/27/17 16:41 Calcium 11.3 mg/dL (8.6-10.3) H 01/29/17 05:30 Total Bilirubin 0.4 mg/dL (0.3-1.0) 01/27/17 16:41 AST 12 U/L (13-39) L 01/27/17 16:41 ALT 16 U/L (7-52) 01/27/17 16:41 Alkaline Phosphatase 56 U/L (34-104) 01/27/17 16:41 Creatine Kinase 18 U/L (30-223) L 01/27/17 16:41 Troponin I 0.01 ng/mL (0.01-0.05) 01/27/17 16:41 B-Natriuretic Peptide 52.7 pg/mL (5.0-100.0) 01/27/17 16:41 Total Protein 7.3 gm/dL (6.0-8.3) 01/27/17 16:41 Albumin 3.9 gm/dL (4.2-5.5) L 01/27/17 16:41 Globulin 3.4 gm/dL 01/27/17 16:41 Albumin/Globulin Ratio 1.2 (1.0-1.8) 01/27/17 16:41 Triglycerides 87 mg/dL (<150) 01/28/17 04:55 Cholesterol 132 mg/dL (<200) 01/28/17 04:55 LDL Cholesterol Direct 62 mg/dL (75-193) L 01/28/17 04:55 HDL Cholesterol 54 mg/dL (23-92) 01/28/17 04:55 Amylase 141 U/L (29-103) H 01/28/17 04:55 Lipase 119 U/L (11-82) H 01/28/17 04:55 - Physical Exam Vitals and I&O: Vital Signs Temp 98.3 F 01/30/17 07:54 Pulse 58 01/30/17 07:54 Resp 16 01/30/17 07:54 BP 187/111 01/30/17 07:54 Pulse Ox 100 01/30/17 07:54 Intake & Output 01/29/17 01/30/17 01/30/17 18:59 06:59 18:59 Intake Total 100 60 Balance 100 60 Weight (lbs) 41.73 kg 47.315 kg Intake: Oral 100 60 Tube Feeding 0 TPN/PPN 0 Blood Product 0 Lipid 0 Albumin 0 Other 0 Other: # Voids 2 Active Medications: Current Medications Aspirin (Ecotrin) 81 mg PO DAILY MIKA Stop: 03/29/17 08:59 Last Admin: 01/29/17 09:41 Dose: 81 mg Atorvastatin Calcium (Lipitor) 20 mg PO HS MIKA Stop: 03/29/17 20:59 Last Admin: 01/29/17 20:07 Dose: 20 mg Donepezil HCl (Aricept) 10 mg PO DAILY MIKA Stop: 03/29/17 08:59 Last Admin: 01/29/17 09:46 Dose: 10 mg Famotidine (Pepcid) 20 mg PO DAILY MIKA Stop: 03/29/17 08:59 Last Admin: 01/29/17 09:40 Dose: 20 mg Folic Acid (Folate) 1 mg PO DAILY MIKA Stop: 03/29/17 08:59 Last Admin: 01/29/17 09:45 Dose: 1 mg Hydralazine HCl (Apresoline) 50 mg PO TID MIKA Stop: 03/29/17 08:59 Last Admin: 01/29/17 20:08 Dose: 50 mg Sodium Chloride (Nacl 0.9%) 1,000 mls @ 50 mls/hr IV .Q20H MIKA Stop: 03/28/17 22:29 Last Infusion: 01/29/17 06:06 Dose: 50 mls/hr Albumin Human (Albuminar 25%) 25 gm in 100 mls @ 50 mls/hr IV PRN PRN PRN Reason: BP Support During HD Lactulose (Cephulac) 30 gm PO Q24H PRN PRN Reason: Constipation Lorazepam (Ativan) 1 mg IVP Q6HR PRN; Protocol PRN Reason: Agitation Stop: 03/28/17 22:21 Losartan Potassium (Cozaar) 50 mg PO DAILY MIKA Stop: 03/29/17 08:59 Last Admin: 01/29/17 11:58 Dose: 50 mg Memantine (Namenda) 5 mg PO BID MIKA Stop: 03/29/17 08:59 Last Admin: 01/29/17 18:24 Dose: 5 mg Miscellaneous (Clinical Monitoring) 1 ea MC DAILY PRN PRN Reason: RENAL Stop: 03/29/17 11:42 Nifedipine (Procardia Xl) 30 mg PO DAILY MIKA Stop: 03/29/17 08:59 Last Admin: 01/29/17 11:56 Dose: 30 mg Sucralfate (Carafate) 1 gm PO ACHS MIKA Stop: 03/29/17 07:29 Last Admin: 01/30/17 06:41 Dose: 1 gm Tamsulosin HCl (Flomax) 0.4 mg PO DAILY MIKA Stop: 03/29/17 08:59 Last Admin: 01/29/17 09:46 Dose: 0.4 mg Vitamin B Complex/Vit C/Folic Acid (Vitamin B Complex W/Vitamin C) 1 tab PO DAILY MIKA Stop: 03/29/17 08:59 Last Admin: 01/29/17 11:56 Dose: 1 tab General: Alert, No acute distress HEENT: Atraumatic, PERRLA Neck: Supple, +2 carotid pulse wo bruit Cardiovascular: Regular rate, Normal S1, Normal S2 Abdomen: Bowel sounds, Soft Extremities: no Clubbing, no Edema Neurological: Sensation intact Skin: no Rash Psych/Mental Status: Mood NL - Procedures Procedures: Procedures Procedure Code Date AV FUSION DIRECT ANY SITE 72429 12/28/16 BYPASS LEFT BRACHIAL ARTERY TO UPPER ARM VEIN, OPEN APPROACH [id number] 12/28/16 INSERT TUNNELED CV CATH 15104 12/28/16 INSERTION OF INFUSION DEV INTO L FEMOR VEIN, PERC APPROACH [id number] 12/28/16 Assessment/Plan - Problem List Patient Problems: All Active Problems AV shunt malfunction (Acute) T82.591A Anemia (Acute) D64.9 ESRD (end stage renal disease) on dialysis (Acute) N18.6, Z99.2 H/O: CVA (cerebrovascular accident) (Acute) Z86.73 HTN (hypertension) (Acute) I10 chonic encephalopathy (Acute) - Plan Plan: as per order sheet Nutritional Asmnt/Malnutr-PDOC - Dietary Evaluation Malnutrition Findings (Please click <Entered> for more info): Nutritional Asmnt/Malnutrition Start: 01/28/17 10: 29 Text: Status: Active Freq: Document 01/28/17 10:29 INEZ (Rec: 01/28/17 10:40 INEZ [email or web address]) Nutritional Asmnt/Malnutrition Patient General Information Nutritional Screening High Risk Diagnosis PNA, Sepsis, Pancreatitis, AMS , ALOC, ESRD on dialysis Pertinent Medical Hx/Surgical Hx HTN, CVA/TIA, dyslipidemia, ESRD, dementia Subjective Information Pt was confused, not able to talk during the time of visit. Spoke with JEWEL OLIVING MACHINE OPERATOR, pt has teeth, comsumed 50% of breakfast this morning, eating well on cream of wheat but slowly on eggs and pancake. Pt appeared very skinny. Physical exam performed, mild muscle depletion on arms, fat/muscle wasting on shoulder and legs. Last dialysis 01/27 Current Diet Order/ Nutrition Support Renal, low Na Pertinent Medications Folate, Nacl IV, Vitamin B, Vitamin C Pertinent Labs 01/28: Na 133L, K 4.0, Cl 102, BUN 28H, Cr 5.0H, Glu 76, Ca 11.8H 01/27: Alb 3.9 Nutritional Hx/Data Height 1.78 m Height (Calculated Centimeters) 177.8 Current Weight (lbs) 43.182 kg Weight (Calculated Kilograms) 43.2 Weight (Calculated Grams) 09615.0 [place] Body Weight 166 % [place] Body Weight 57 Body Mass Index (BMI) 13.6 Weight Status Underweight GI Symptoms Difficult in: Chewing Food Allergies No Usual diet at home Previous diet at nursing facility per chart: Renal Pureed Skin Integrity/Comment: intact Current %PO Fair (50-74%) Estimated Nutritional Goals BEE in Kcals: Adj wt of IBW Calories/Kcals/Kg 30-35kcal/kg based on adj wt 67kg Kcals Calculated Protein: Adj wt of IBW Protein g/k.5-2.0 Protein Calculated 100-134 Fluid: ml Per MD d/t ESRD Nutritional Problem 2. Problem Problem Increased nutrition needs ( calorie and protein) Etiology increased metabolic demands for healing and recovery Signs/Symptoms: dx of sepsis, ESRD on dialysis , muscle/fast wasting 1. Problem Problem Inadequate oral intake Etiology pt having difficulty on chewing regular diet Signs/Symptoms: PO intake 50% Malnutrition Alert Body Fat Depletion (Non-Severe) Mild Depletion Muscle Mass (Severe) Mod to Severe Depletion Protein-Calorie Malnutrition Severe Is there a minimum of two criteria Yes selected? Query Text:Check all the applicable criteria. A minimum of two criteria are recommended for diagnosis of either severe or non-severe malnutrition. Intervention/Recommendation Recommendations by RD Protein supplementation Comments 1. Recommend diet order change to Renal Pureed. Made aware of RN to correct diet order, called kitchen to serve Renal Pureed diet for lunch. 2. Recommend Novasource Renal BID to increase nutritional intake 3. Monitor diet tolerance, PO intake, labs, wt weekly and skin integrity. 4. F/U as high risk in 2-3 days, 01/30-01/31 Expected Outcomes/Goals Expected Outcomes/Goals 1. PO to tolerate renal pureed diet, PO intake >75% to meet nutritional needs, pt to consume supplements 2. wt to remain stable, change toward to IBW 3. Labs to improve 4. skin to remain intact
[2017-01-30 10:19] LABS: HEP B CORE IGM Positive (Negative)
[2017-01-30 12:09] LABS: % EOSINOPHILS 1.4 % (0.0-5.0); % LYMPHOCYTES 21.7 % (20.0-50.0); % MONOCYTES 5.9 % (2.0-10.0); HEMOGLOBIN 12.6 gm/dL (12-16); MEAN CORPUSCULAR HEMOGLOBIN 28.9 pg (26.0-30.0); MEAN CORPUSCULAR HGB CONC 32.1 pg (28.0-36.0); MEAN PLATELET VOLUME 8.3 fl; NEUTROPHILE ABSOLUTE 2.9 Th/cmm (1.8-8.0); PLATELET COUNT 321 Th/cmm (150-400); RED BLOOD COUNT 4.35 Mil/cmm (4.30-5.70)
[2017-01-30 12:26] LABS: WHITE BLOOD COUNT 4.1 Th/cmm (4.8-10.8)
[2017-01-30 12:27] LABS: HEMATOCRIT 39.1 % (41.0-60)
[2017-01-30 12:37] LABS: ANION GAP 11.2 (7.0-16.0); BUN/CREATININE RATIO 5.6; CALCIUM SERUM 11.4 mg/dL (8.6-10.3); CARBON DIOXIDE 25.5 mEq/L (21.0-31.0); POTASSIUM SERUM 3.7 mEq/L (3.5-5.1)
--- NOTE | 2017-01-30 14:27 | General Progress Note ---
Subjective - Review of Systems Subjective: awake, comfortable, nonverbal Objective - Results Result Diagrams: 01/30/17 12:00 01/30/17 12:00 Recent Labs: Laboratory Last Values WBC 4.1 Th/cmm (4.8-10.8) L D 01/30/17 12:00 RBC 4.35 Mil/cmm (4.30-5.70) 01/30/17 12:00 Hgb 12.6 gm/dL (12-16) 01/30/17 12:00 Hct 39.1 % (41.0-60) L D 01/30/17 12:00 MCV 90.0 fl (80-99) 01/30/17 12:00 MCH 28.9 pg (26.0-30.0) 01/30/17 12:00 MCHC Differential 32.1 pg (28.0-36.0) 01/30/17 12:00 RDW 17.0 % (11.5-20.0) 01/30/17 12:00 Plt Count 321 Th/cmm (150-400) 01/30/17 12:00 MPV 8.3 fl 01/30/17 12:00 Neutrophils % 71.0 % (40.0-80.0) 01/30/17 12:00 Lymphocytes % 21.7 % (20.0-50.0) 01/30/17 12:00 Monocytes % 5.9 % (2.0-10.0) 01/30/17 12:00 Eosinophils % 1.4 % (0.0-5.0) 01/30/17 12:00 Basophils % 0.0 % (0.0-2.0) 01/30/17 12:00 PT 10.5 SECONDS (9.5-11.5) 01/27/17 16:41 INR 1.01 (0.5-1.4) 01/27/17 16:41 PTT (Actin FS) 122.2 SECONDS (26.0-38.0) H* 01/27/17 16:41 Sodium 139 mEq/L (136-145) 01/30/17 12:00 Potassium 3.7 mEq/L (3.5-5.1) 01/30/17 12:00 Chloride 106 mEq/L (98-107) 01/30/17 12:00 Carbon Dioxide 25.5 mEq/L (21.0-31.0) 01/30/17 12:00 Anion Gap 11.2 (7.0-16.0) 01/30/17 12:00 BUN 35 mg/dL (7-25) H 01/30/17 12:00 Creatinine 6.2 mg/dL (0.7-1.3) H* 01/30/17 12:00 Est GFR ( Amer) 12.2 ml/min (>90) 01/30/17 12:00 Est GFR (Non-Af Amer) 10.1 ml/min 01/30/17 12:00 BUN/Creatinine Ratio 5.6 01/30/17 12:00 Glucose 81 mg/dL (70-105) 01/30/17 12:00 POC Glucose 113 MG/DL (70-105) H 01/29/17 13:02 Whole Bld Lactic Acid 1.49 mmol/L (0.60-1.99) 01/27/17 16:41 Calcium 11.4 mg/dL (8.6-10.3) H 01/30/17 12:00 Total Bilirubin 0.4 mg/dL (0.3-1.0) 01/27/17 16:41 AST 12 U/L (13-39) L 01/27/17 16:41 ALT 16 U/L (7-52) 01/27/17 16:41 Alkaline Phosphatase 56 U/L (34-104) 01/27/17 16:41 Creatine Kinase 18 U/L (30-223) L 01/27/17 16:41 Troponin I 0.01 ng/mL (0.01-0.05) 01/27/17 16:41 B-Natriuretic Peptide 52.7 pg/mL (5.0-100.0) 01/27/17 16:41 Total Protein 7.3 gm/dL (6.0-8.3) 01/27/17 16:41 Albumin 3.9 gm/dL (4.2-5.5) L 01/27/17 16:41 Globulin 3.4 gm/dL 01/27/17 16:41 Albumin/Globulin Ratio 1.2 (1.0-1.8) 01/27/17 16:41 Triglycerides 87 mg/dL (<150) 01/28/17 04:55 Cholesterol 132 mg/dL (<200) 01/28/17 04:55 LDL Cholesterol Direct 62 mg/dL (75-193) L 01/28/17 04:55 HDL Cholesterol 54 mg/dL (23-92) 01/28/17 04:55 Amylase 141 U/L (29-103) H 01/28/17 04:55 Lipase 119 U/L (11-82) H 01/28/17 04:55 Hepatitis A IgM Ab Negative (Negative) 01/29/17 05:30 Hep Bs Antigen Negative (Negative) 01/29/17 05:30 Hep B Core IgM Ab Positive (Negative) H 01/29/17 05:30 Hepatitis C Antibody <0.1 s/co ratio (0.0-0.9) 01/29/17 05:30 - Physical Exam Vitals and I&O: Vital Signs Temp 97.3 F 01/30/17 12:00 Pulse 61 01/30/17 13:19 Resp 16 01/30/17 12:00 BP 116/66 01/30/17 13:19 Pulse Ox 100 01/30/17 12:00 Intake & Output 01/29/17 01/30/17 01/30/17 18:59 06:59 18:59 Intake Total 100 60 Balance 100 60 Weight (lbs) 41.73 kg 47.315 kg Intake: Oral 100 60 Tube Feeding 0 TPN/PPN 0 Blood Product 0 Lipid 0 Albumin 0 Other 0 Other: # Voids 2 Active Medications: Current Medications Aspirin (Ecotrin) 81 mg PO DAILY [facility] Stop: 03/29/17 08:59 Last Admin: 01/30/17 08:15 Dose: 81 mg Atorvastatin Calcium (Lipitor) 20 mg PO [facility] Stop: 03/29/17 20:59 Last Admin: 01/29/17 20:07 Dose: 20 mg Donepezil HCl (Aricept) 10 mg PO DAILY [facility] Stop: 03/29/17 08:59 Last Admin: 01/30/17 08:16 Dose: 10 mg Famotidine (Pepcid) 20 mg PO DAILY [facility] Stop: 03/29/17 08:59 Last Admin: 01/30/17 08:14 Dose: 20 mg Folic Acid (Folate) 1 mg PO DAILY [facility] Stop: 03/29/17 08:59 Last Admin: 01/30/17 08:15 Dose: 1 mg Hydralazine HCl (Apresoline) 50 mg PO TID [facility] Stop: 03/29/17 08:59 Last Admin: 01/30/17 13:19 Dose: 50 mg Sodium Chloride (Nacl 0.9%) 1,000 mls @ 50 mls/hr IV .Q20H [facility] Stop: 03/28/17 22:29 Last Infusion: 01/29/17 06:06 Dose: 50 mls/hr Albumin Human (Albuminar 25%) 25 gm in 100 mls @ 50 mls/hr IV PRN PRN PRN Reason: BP Support During HD Lactulose (Cephulac) 30 gm PO Q24H PRN PRN Reason: Constipation Lorazepam (Ativan) 1 mg IVP Q6HR PRN; Protocol PRN Reason: Agitation Stop: 03/28/17 22:21 Losartan Potassium (Cozaar) 100 mg PO DAILY [facility] Stop: 04/01/17 08:59 Memantine (Namenda) 5 mg PO BID [facility] Stop: 03/29/17 08:59 Last Admin: 01/30/17 08:14 Dose: 5 mg Miscellaneous (Clinical Monitoring) 1 ea MC DAILY PRN PRN Reason: RENAL Stop: 03/29/17 11:42 Mupirocin (Bactroban Oint) 1 appl TP BID [facility] Stop: 03/31/17 16:59 Nifedipine (Procardia Xl) 30 mg PO DAILY [facility] Stop: 03/29/17 08:59 Last Admin: 01/30/17 08:15 Dose: 30 mg Sucralfate (Carafate) 1 gm PO ACHS [facility] Stop: 03/29/17 07:29 Last Admin: 01/30/17 11:45 Dose: 1 gm Tamsulosin HCl (Flomax) 0.4 mg PO DAILY [facility] Stop: 03/29/17 08:59 Last Admin: 01/30/17 08:15 Dose: 0.4 mg Vitamin B Complex/Vit C/Folic Acid (Vitamin B Complex W/Vitamin C) 1 tab PO DAILY [facility] Stop: 03/29/17 08:59 Last Admin: 01/30/17 08:14 Dose: 1 tab General: Alert, No acute distress HEENT: Atraumatic, PERRLA Neck: Supple, +2 carotid pulse wo bruit Cardiovascular: Regular rate, Normal S1, Normal S2 Abdomen: Bowel sounds, Soft Extremities: no Clubbing, no Edema Neurological: Sensation intact Skin: no Rash Psych/Mental Status: Mood NL - Procedures Procedures: Procedures Procedure Code Date AV FUSION DIRECT ANY SITE 63096 12/28/16 BYPASS LEFT BRACHIAL ARTERY TO UPPER ARM VEIN, OPEN APPROACH [id number] 12/28/16 INSERT TUNNELED CV CATH 79461 12/28/16 INSERTION OF INFUSION DEV INTO L FEMOR VEIN, PERC APPROACH [id number] 12/28/16 Assessment/Plan - Problem List Patient Problems: All Active Problems AV shunt malfunction (Acute) T82.591A Anemia (Acute) D64.9 ESRD (end stage renal disease) on dialysis (Acute) N18.6, Z99.2 H/O: CVA (cerebrovascular accident) (Acute) Z86.73 HTN (hypertension) (Acute) I10 chonic encephalopathy (Acute) - Assessment Assessment: ESRD on HD ALOC possibly 2nd to period of hypotension Ess Htn TIA BPH dyslipidemia Dementia w/o beh disturbance - Plan Plan: Lab - Result Diagrams 01/29/17 05:30 01/29/17 05:30 Current Medications Aspirin (Ecotrin) 81 mg PO DAILY [facility] Stop: 03/29/17 08:59 Last Admin: 01/29/17 09:41 Dose: 81 mg Atorvastatin Calcium (Lipitor) 20 mg PO HS [facility] Stop: 03/29/17 20:59 Last Admin: 01/28/17 20:37 Dose: 20 mg Donepezil HCl (Aricept) 10 mg PO DAILY [facility] Stop: 03/29/17 08:59 Last Admin: 01/29/17 09:46 Dose: 10 mg Famotidine (Pepcid) 20 mg PO DAILY [facility] Stop: 03/29/17 08:59 Last Admin: 01/29/17 09:40 Dose: 20 mg Folic Acid (Folate) 1 mg PO DAILY [facility] Stop: 03/29/17 08:59 Last Admin: 01/29/17 09:45 Dose: 1 mg Hydralazine HCl (Apresoline) 50 mg PO TID [facility] Stop: 03/29/17 08:59 Last Admin: 01/29/17 11:55 Dose: 50 mg Sodium Chloride (Nacl 0.9%) 1,000 mls @ 50 mls/hr IV .Q20H [facility] Stop: 03/28/17 22:29 Last Infusion: 01/29/17 06:06 Dose: 50 mls/hr Albumin Human (Albuminar 25%) 25 gm in 100 mls @ 50 mls/hr IV PRN PRN PRN Reason: BP Support During HD Lactulose (Cephulac) 30 gm PO Q24H PRN PRN Reason: Constipation Lorazepam (Ativan) 1 mg IVP Q6HR PRN; Protocol PRN Reason: Agitation Stop: 03/28/17 22:21 Losartan Potassium (Cozaar) 50 mg PO DAILY [facility] Stop: 03/29/17 08:59 Last Admin: 01/29/17 11:58 Dose: 50 mg Memantine (Namenda) 5 mg PO BID [facility] Stop: 03/29/17 08:59 Last Admin: 01/29/17 09:46 Dose: 5 mg Miscellaneous (Clinical Monitoring) 1 ea MC DAILY PRN PRN Reason: RENAL Stop: 03/29/17 11:42 Nifedipine (Procardia Xl) 30 mg PO DAILY [facility] Stop: 03/29/17 08:59 Last Admin: 01/29/17 11:56 Dose: 30 mg Sucralfate (Carafate) 1 gm PO ACHS [facility] Stop: 03/29/17 07:29 Last Admin: 01/29/17 07:02 Dose: 1 gm Tamsulosin HCl (Flomax) 0.4 mg PO DAILY [facility] Stop: 03/29/17 08:59 Last Admin: 01/29/17 09:46 Dose: 0.4 mg Vitamin B Complex/Vit C/Folic Acid (Vitamin B Complex W/Vitamin C) 1 tab PO DAILY [facility] Stop: 03/29/17 08:59 Last Admin: 01/29/17 11:56 Dose: 1 tab Lab - Result Diagrams 01/30/17 12:00 01/30/17 12:00 scheduled for hd tomorrow pt. more alert, does no talk Nutritional Asmnt/Malnutr-PDOC - Dietary Evaluation Malnutrition Findings (Please click <Entered> for more info): Nutritional Asmnt/Malnutrition Start: 01/28/17 10: 29 Text: Status: Active Freq: Document 01/28/17 10:29 INEZ (Rec: 01/28/17 10:40 [email or web address]) Nutritional Asmnt/Malnutrition Patient General Information Nutritional Screening High Risk Diagnosis PNA, Sepsis, Pancreatitis, AMS , ALOC, ESRD on dialysis Pertinent Medical Hx/Surgical Hx HTN, CVA/TIA, dyslipidemia, ESRD, dementia Subjective Information Pt was confused, not able to talk during the time of visit. Spoke with SHIFT PRODUCTION SUPERVISOR, pt has teeth, comsumed 50% of breakfast this morning, eating well on cream of wheat but slowly on eggs and pancake. Pt appeared very skinny. Physical exam performed, mild muscle depletion on arms, fat/muscle wasting on shoulder and legs. Last dialysis 01/27 Current Diet Order/ Nutrition Support Renal, low Na Pertinent Medications Folate, Nacl IV, Vitamin B, Vitamin C Pertinent Labs 01/28: Na 133L, K 4.0, Cl 102, BUN 28H, Cr 5.0H, Glu 76, Ca 11.8H 01/27: Alb 3.9 Nutritional Hx/Data Height 1.78 m Height (Calculated Centimeters) 177.8 Current Weight (lbs) 43.182 kg Weight (Calculated Kilograms) 43.2 Weight (Calculated Grams) 04370.0 [place] Body Weight 166 % [place] Body Weight 57 Body Mass Index (BMI) 13.6 Weight Status Underweight GI Symptoms Difficult in: Chewing Food Allergies No Usual diet at home Previous diet at nursing facility per chart: Renal Pureed Skin Integrity/Comment: intact Current %PO Fair (50-74%) Estimated Nutritional Goals BEE in Kcals: Adj wt of IBW Calories/Kcals/Kg 30-35kcal/kg based on adj wt 67kg Kcals Calculated Protein: Adj wt of IBW Protein g/k.5-2.0 Protein Calculated 100-134 Fluid: ml Per MD d/t ESRD Nutritional Problem 2. Problem Problem Increased nutrition needs ( calorie and protein) Etiology increased metabolic demands for healing and recovery Signs/Symptoms: dx of sepsis, ESRD on dialysis , muscle/fast wasting 1. Problem Problem Inadequate oral intake Etiology pt having difficulty on chewing regular diet Signs/Symptoms: PO intake 50% Malnutrition Alert Body Fat Depletion (Non-Severe) Mild Depletion Muscle Mass (Severe) Mod to Severe Depletion Protein-Calorie Malnutrition Severe Is there a minimum of two criteria Yes selected? Query Text:Check all the applicable criteria. A minimum of two criteria are recommended for diagnosis of either severe or non-severe malnutrition. Intervention/Recommendation Recommendations by RD Protein supplementation Comments 1. Recommend diet order change to Renal Pureed. Made aware of RN to correct diet order, called kitchen to serve Renal Pureed diet for lunch. 2. Recommend Novasource Renal BID to increase nutritional intake 3. Monitor diet tolerance, PO intake, labs, wt weekly and skin integrity. 4. F/U as high risk in 2-3 days, 01/30-01/31 Expected Outcomes/Goals Expected Outcomes/Goals 1. PO to tolerate renal pureed diet, PO intake >75% to meet nutritional needs, pt to consume supplements 2. wt to remain stable, change toward to IBW 3. Labs to improve 4. skin to remain intact
[2017-01-30] MEDS: Atorvastatin Calcium 10 MG TAB PO SCH (20:25)
[2017-01-31 07:06] LABS: CREATININE - SERUM 6.2 mg/dL (0.7-1.3)
[2017-01-31] MEDS: NIFEdipine 30 mg ER Tab PO SCH (09:53)
[2017-01-31] MEDS: Vitamin B Complex w/Vitamin C Tab PO SCH (09:53)
[2017-01-31 10:17] LABS: % BASOPHILS 0.1 % (0.0-2.0); % EOSINOPHILS 1.9 % (0.0-5.0); % MONOCYTES 6.5 % (2.0-10.0); % NEUTROPHILS 72.5 % (40.0-80.0); HEMOGLOBIN 11.4 gm/dL (12-16); MEAN CELL VOLUME 88.5 fl (80-99); MEAN CORPUSCULAR HEMOGLOBIN 28.8 pg (26.0-30.0); MEAN CORPUSCULAR HGB CONC 32.6 pg (28.0-36.0); MEAN PLATELET VOLUME 8.7 fl; NEUTROPHILE ABSOLUTE 3.9 Th/cmm (1.8-8.0); PLATELET COUNT 331 Th/cmm (150-400); RED BLOOD COUNT 3.97 Mil/cmm (4.30-5.70); RED CELL DISTRIBUTION WIDTH 16.9 % (11.5-20.0)
[2017-01-31 10:18] LABS: HEMATOCRIT 35.1 % (41.0-60); WHITE BLOOD COUNT 5.4 Th/cmm (4.8-10.8)
[2017-01-31 10:26] LABS: ANION GAP 12.2 (7.0-16.0); BUN/CREATININE RATIO 5.7; CALCIUM SERUM 11.1 mg/dL (8.6-10.3); CARBON DIOXIDE 21.5 mEq/L (21.0-31.0); POTASSIUM SERUM 3.7 mEq/L (3.5-5.1)
[2017-01-31 10:35] LABS: CREATININE - SERUM 7.2 mg/dL (0.7-1.3)
--- NOTE | 2017-01-31 12:25 | Internal Medicine Prog Note ---
Internal Medicine Subjective - Subjective Service Date: 01/31/17 Patient seen and examined:: with staff Patient is:: awake, non-verbal Per staff patient has:: tolerating meds Internal Medicine Objective - Results Result Diagrams: 01/31/17 09:00 01/31/17 09:00 Recent Labs: Laboratory Last Values WBC 5.4 Th/cmm (4.8-10.8) D 01/31/17 09:00 RBC 3.97 Mil/cmm (4.30-5.70) L 01/31/17 09:00 Hgb 11.4 gm/dL (12-16) L 01/31/17 09:00 Hct 35.1 % (41.0-60) L D 01/31/17 09:00 MCV 88.5 fl (80-99) 01/31/17 09:00 MCH 28.8 pg (26.0-30.0) 01/31/17 09:00 MCHC Differential 32.6 pg (28.0-36.0) 01/31/17 09:00 RDW 16.9 % (11.5-20.0) 01/31/17 09:00 Plt Count 331 Th/cmm (150-400) 01/31/17 09:00 MPV 8.7 fl 01/31/17 09:00 Neutrophils % 72.5 % (40.0-80.0) 01/31/17 09:00 Lymphocytes % 19.0 % (20.0-50.0) L 01/31/17 09:00 Monocytes % 6.5 % (2.0-10.0) 01/31/17 09:00 Eosinophils % 1.9 % (0.0-5.0) 01/31/17 09:00 Basophils % 0.1 % (0.0-2.0) 01/31/17 09:00 PT 9.0 SECONDS (9.5-11.5) L 01/30/17 12:00 INR 1.00 (0.5-1.4) 01/30/17 12:00 PTT (Actin FS) 24.3 SECONDS (26.0-38.0) L 01/30/17 12:00 Sodium 138 mEq/L (136-145) 01/31/17 09:00 Potassium 3.7 mEq/L (3.5-5.1) 01/31/17 09:00 Chloride 108 mEq/L (98-107) H 01/31/17 09:00 Carbon Dioxide 21.5 mEq/L (21.0-31.0) 01/31/17 09:00 Anion Gap 12.2 (7.0-16.0) 01/31/17 09:00 BUN 41 mg/dL (7-25) H 01/31/17 09:00 Creatinine 7.2 mg/dL (0.7-1.3) H* 01/31/17 09:00 Est GFR ( Amer) 10.3 ml/min (>90) 01/31/17 09:00 Est GFR (Non-Af Amer) 8.5 ml/min 01/31/17 09:00 BUN/Creatinine Ratio 5.7 01/31/17 09:00 Glucose 88 mg/dL (70-105) 01/31/17 09:00 POC Glucose 113 MG/DL (70-105) H 01/29/17 13:02 Whole Bld Lactic Acid 1.49 mmol/L (0.60-1.99) 01/27/17 16:41 Calcium 11.1 mg/dL (8.6-10.3) H 01/31/17 09:00 Total Bilirubin 0.4 mg/dL (0.3-1.0) 01/27/17 16:41 AST 12 U/L (13-39) L 01/27/17 16:41 ALT 16 U/L (7-52) 01/27/17 16:41 Alkaline Phosphatase 56 U/L (34-104) 01/27/17 16:41 Creatine Kinase 18 U/L (30-223) L 01/27/17 16:41 Troponin I 0.01 ng/mL (0.01-0.05) 01/27/17 16:41 B-Natriuretic Peptide 52.7 pg/mL (5.0-100.0) 01/27/17 16:41 Total Protein 7.3 gm/dL (6.0-8.3) 01/27/17 16:41 Albumin 3.9 gm/dL (4.2-5.5) L 01/27/17 16:41 Globulin 3.4 gm/dL 01/27/17 16:41 Albumin/Globulin Ratio 1.2 (1.0-1.8) 01/27/17 16:41 Triglycerides 87 mg/dL (<150) 01/28/17 04:55 Cholesterol 132 mg/dL (<200) 01/28/17 04:55 LDL Cholesterol Direct 62 mg/dL (75-193) L 01/28/17 04:55 HDL Cholesterol 54 mg/dL (23-92) 01/28/17 04:55 Amylase 117 U/L (29-103) H 01/31/17 09:00 Lipase 128 U/L (11-82) H 01/31/17 09:00 Random Vancomycin 18.0 ug/mL (5.0-40.0) 01/31/17 09:00 Hepatitis A IgM Ab Negative (Negative) 01/29/17 05:30 Hep Bs Antigen Negative (Negative) 01/29/17 05:30 Hep B Core IgM Ab Positive (Negative) H 01/29/17 05:30 Hepatitis C Antibody <0.1 s/co ratio (0.0-0.9) 01/29/17 05:30 - Physical Exam Vitals and I&O: Vital Signs Temp 98.6 F 01/31/17 04:00 Pulse 61 01/31/17 09:53 Resp 20 01/31/17 04:00 BP 176/113 01/31/17 09:53 Pulse Ox 100 01/31/17 00:00 Intake & Output 01/30/17 01/31/17 01/31/17 18:59 06:59 18:59 Intake Total 120 Balance 120 Weight (lbs) 104 lb 104 lb Intake: Oral 120 Other: # Voids 2 2 Active Medications: Current Medications Aspirin (Ecotrin) 81 mg PO DAILY [facility] Stop: 03/29/17 08:59 Last Admin: 01/31/17 09:52 Dose: 81 mg Atorvastatin Calcium (Lipitor) 20 mg PO HS [facility] Stop: 03/29/17 20:59 Last Admin: 01/30/17 20:25 Dose: 20 mg Donepezil HCl (Aricept) 10 mg PO DAILY [facility] Stop: 03/29/17 08:59 Last Admin: 01/31/17 09:53 Dose: 10 mg Famotidine (Pepcid) 20 mg PO DAILY [facility] Stop: 03/29/17 08:59 Last Admin: 01/31/17 09:53 Dose: 20 mg Folic Acid (Folate) 1 mg PO DAILY [facility] Stop: 03/29/17 08:59 Last Admin: 01/31/17 09:52 Dose: 1 mg Hydralazine HCl (Apresoline) 50 mg PO TID [facility] Stop: 03/29/17 08:59 Last Admin: 01/31/17 09:53 Dose: 50 mg Sodium Chloride (Nacl 0.9%) 1,000 mls @ 50 mls/hr IV .Q20H [facility] Stop: 03/28/17 22:29 Last Infusion: 01/29/17 06:06 Dose: 50 mls/hr Albumin Human (Albuminar 25%) 25 gm in 100 mls @ 50 mls/hr IV PRN PRN PRN Reason: BP Support During HD Vancomycin HCl 750 mg/ Sodium (Chloride) 250 mls @ 250 mls/hr IV ONCE ONE Stop: 01/31/17 18:59 Lactulose (Cephulac) 30 gm PO Q24H PRN PRN Reason: Constipation Lorazepam (Ativan) 1 mg IVP Q6HR PRN; Protocol PRN Reason: Agitation Stop: 03/28/17 22:21 Losartan Potassium (Cozaar) 100 mg PO DAILY [facility] Stop: 04/01/17 08:59 Last Admin: 01/31/17 09:52 Dose: 100 mg Memantine (Namenda) 5 mg PO BID [facility] Stop: 03/29/17 08:59 Last Admin: 01/31/17 09:53 Dose: 5 mg Miscellaneous (Clinical Monitoring) 1 ea DAILY PRN PRN Reason: RENAL Stop: 03/29/17 11:42 Miscellaneous (Vancomycin Iv Per Pharmacy) 1 ea PRN PRN PRN Reason: PROTOCOL Stop: 03/31/17 15:22 Mupirocin (Bactroban Oint) 1 appl TP BID [facility] Stop: 03/31/17 16:59 Last Admin: 01/31/17 09:54 Dose: 1 appl Nifedipine (Procardia Xl) 30 mg PO DAILY [facility] Stop: 03/29/17 08:59 Last Admin: 01/31/17 09:53 Dose: 30 mg Sucralfate (Carafate) 1 gm PO ACHS [facility] Stop: 03/29/17 07:29 Last Admin: 01/31/17 11:42 Dose: 1 gm Tamsulosin HCl (Flomax) 0.4 mg PO DAILY [facility] Stop: 03/29/17 08:59 Last Admin: 01/31/17 09:52 Dose: 0.4 mg Vitamin B Complex/Vit C/Folic Acid (Vitamin B Complex W/Vitamin C) 1 tab PO DAILY [facility] Stop: 03/29/17 08:59 Last Admin: 01/31/17 09:53 Dose: 1 tab General: weak, alert HEENT: NC/AT, PERRLA Neck: Supple Lungs: CTAB Cardiovascular: RRR, Normal S1, Normal S2, without murmur Abdomen: soft, non-distended, positive bowel sound Neurological: alert - Procedures Procedures: Procedures Procedure Code Date AV FUSION DIRECT ANY SITE 23268 12/28/16 BYPASS LEFT BRACHIAL ARTERY TO UPPER ARM VEIN, OPEN APPROACH [id number] 12/28/16 INSERT TUNNELED CV CATH 25940 12/28/16 INSERTION OF INFUSION DEV INTO L FEMOR VEIN, PERC APPROACH [id number] 12/28/16 Internal Medicine Assmt/Plan - Assessment Assessment: AV shunt malfunction (Acute) T82.591A Anemia (Acute) D64.9 ESRD (end stage renal disease) on dialysis (Acute) N18.6, Z99.2 H/O: CVA (cerebrovascular accident) (Acute) Z86.73 HTN (hypertension) (Acute) I10 chonic encephalopathy (Acute) - Plan Plan: continue with hd monitor h/h continue current plan of care Nutritional Asmnt/Malnutr-PDOC - Dietary Evaluation Malnutrition Findings (Please click <Entered> for more info): Nutritional Asmnt/Malnutrition Start: 01/28/17 10: 29 Text: Status: Active Freq: Document 01/28/17 10:29 LCADIG (Rec: 01/28/17 10:40 [email or web address] [email or web address]) Nutritional Asmnt/Malnutrition Patient General Information Nutritional Screening High Risk Diagnosis PNA, Sepsis, Pancreatitis, AMS , ALOC, ESRD on dialysis Pertinent Medical Hx/Surgical Hx HTN, CVA/TIA, dyslipidemia, ESRD, dementia Subjective Information Pt was confused, not able to talk during the time of visit. Spoke with ENGINEERING ADMINISTRATOR, pt has teeth, comsumed 50% of breakfast this morning, eating well on cream of wheat but slowly on eggs and pancake. Pt appeared very skinny. Physical exam performed, mild muscle depletion on arms, fat/muscle wasting on shoulder and legs. Last dialysis 01/27 Current Diet Order/ Nutrition Support Renal, low Na Pertinent Medications Folate, Nacl IV, Vitamin B, Vitamin C Pertinent Labs 01/28: Na 133L, K 4.0, Cl 102, BUN 28H, Cr 5.0H, Glu 76, Ca 11.8H 01/27: Alb 3.9 Nutritional Hx/Data Height 5 ft 10 in Height (Calculated Centimeters) 177.8 Current Weight (lbs) 95 lb 3.2 oz Weight (Calculated Kilograms) 43.2 Weight (Calculated Grams) 12030.0 [place] Body Weight 166 % [place] Body Weight 57 Body Mass Index (BMI) 13.6 Weight Status Underweight GI Symptoms Difficult in: Chewing Food Allergies No Usual diet at home Previous diet at nursing facility per chart: Renal Pureed Skin Integrity/Comment: intact Current %PO Fair (50-74%) Estimated Nutritional Goals BEE in Kcals: Adj wt of IBW Calories/Kcals/Kg 30-35kcal/kg based on adj wt 67kg Kcals Calculated Protein: Adj wt of IBW Protein g/k.5-2.0 Protein Calculated 100-134 Fluid: ml Per MD d/t ESRD Nutritional Problem 2. Problem Problem Increased nutrition needs ( calorie and protein) Etiology increased metabolic demands for healing and recovery Signs/Symptoms: dx of sepsis, ESRD on dialysis , muscle/fast wasting 1. Problem Problem Inadequate oral intake Etiology pt having difficulty on chewing regular diet Signs/Symptoms: PO intake 50% Malnutrition Alert Body Fat Depletion (Non-Severe) Mild Depletion Muscle Mass (Severe) Mod to Severe Depletion Protein-Calorie Malnutrition Severe Is there a minimum of two criteria Yes selected? Query Text:Check all the applicable criteria. A minimum of two criteria are recommended for diagnosis of either severe or non-severe malnutrition. Intervention/Recommendation Recommendations by RD Protein supplementation Comments 1. Recommend diet order change to Renal Pureed. Made aware of RN to correct diet order, called kitchen to serve Renal Pureed diet for lunch. 2. Recommend Novasource Renal BID to increase nutritional intake 3. Monitor diet tolerance, PO intake, labs, wt weekly and skin integrity. 4. F/U as high risk in 2-3 days, 01/30-01/31 Expected Outcomes/Goals Expected Outcomes/Goals 1. PO to tolerate renal pureed diet, PO intake >75% to meet nutritional needs, pt to consume supplements 2. wt to remain stable, change toward to IBW 3. Labs to improve 4. skin to remain intact
--- NOTE | 2017-01-31 14:40 | General Progress Note ---
Subjective - Review of Systems Service Date: 01/31/17 Subjective: awake, comfortable, nonverbal Objective - Results Result Diagrams: 01/31/17 09:00 01/31/17 09:00 Recent Labs: Laboratory Last Values WBC 5.4 Th/cmm (4.8-10.8) D 01/31/17 09:00 RBC 3.97 Mil/cmm (4.30-5.70) L 01/31/17 09:00 Hgb 11.4 gm/dL (12-16) L 01/31/17 09:00 Hct 35.1 % (41.0-60) L D 01/31/17 09:00 MCV 88.5 fl (80-99) 01/31/17 09:00 MCH 28.8 pg (26.0-30.0) 01/31/17 09:00 MCHC Differential 32.6 pg (28.0-36.0) 01/31/17 09:00 RDW 16.9 % (11.5-20.0) 01/31/17 09:00 Plt Count 331 Th/cmm (150-400) 01/31/17 09:00 MPV 8.7 fl 01/31/17 09:00 Neutrophils % 72.5 % (40.0-80.0) 01/31/17 09:00 Lymphocytes % 19.0 % (20.0-50.0) L 01/31/17 09:00 Monocytes % 6.5 % (2.0-10.0) 01/31/17 09:00 Eosinophils % 1.9 % (0.0-5.0) 01/31/17 09:00 Basophils % 0.1 % (0.0-2.0) 01/31/17 09:00 PT 9.0 SECONDS (9.5-11.5) L 01/30/17 12:00 INR 1.00 (0.5-1.4) 01/30/17 12:00 PTT (Actin FS) 24.3 SECONDS (26.0-38.0) L 01/30/17 12:00 Sodium 138 mEq/L (136-145) 01/31/17 09:00 Potassium 3.7 mEq/L (3.5-5.1) 01/31/17 09:00 Chloride 108 mEq/L (98-107) H 01/31/17 09:00 Carbon Dioxide 21.5 mEq/L (21.0-31.0) 01/31/17 09:00 Anion Gap 12.2 (7.0-16.0) 01/31/17 09:00 BUN 41 mg/dL (7-25) H 01/31/17 09:00 Creatinine 7.2 mg/dL (0.7-1.3) H* 01/31/17 09:00 Est GFR ( Amer) 10.3 ml/min (>90) 01/31/17 09:00 Est GFR (Non-Af Amer) 8.5 ml/min 01/31/17 09:00 BUN/Creatinine Ratio 5.7 01/31/17 09:00 Glucose 88 mg/dL (70-105) 01/31/17 09:00 POC Glucose 113 MG/DL (70-105) H 01/29/17 13:02 Whole Bld Lactic Acid 1.02 mmol/L (0.60-1.99) 01/31/17 11:20 Calcium 11.1 mg/dL (8.6-10.3) H 01/31/17 09:00 Total Bilirubin 0.4 mg/dL (0.3-1.0) 01/27/17 16:41 AST 12 U/L (13-39) L 01/27/17 16:41 ALT 16 U/L (7-52) 01/27/17 16:41 Alkaline Phosphatase 56 U/L (34-104) 01/27/17 16:41 Creatine Kinase 18 U/L (30-223) L 01/27/17 16:41 Troponin I 0.01 ng/mL (0.01-0.05) 01/27/17 16:41 B-Natriuretic Peptide 52.7 pg/mL (5.0-100.0) 01/27/17 16:41 Total Protein 7.3 gm/dL (6.0-8.3) 01/27/17 16:41 Albumin 3.9 gm/dL (4.2-5.5) L 01/27/17 16:41 Globulin 3.4 gm/dL 01/27/17 16:41 Albumin/Globulin Ratio 1.2 (1.0-1.8) 01/27/17 16:41 Triglycerides 87 mg/dL (<150) 01/28/17 04:55 Cholesterol 132 mg/dL (<200) 01/28/17 04:55 LDL Cholesterol Direct 62 mg/dL (75-193) L 01/28/17 04:55 HDL Cholesterol 54 mg/dL (23-92) 01/28/17 04:55 Amylase 117 U/L (29-103) H 01/31/17 09:00 Lipase 128 U/L (11-82) H 01/31/17 09:00 Random Vancomycin 18.0 ug/mL (5.0-40.0) 01/31/17 09:00 Hepatitis A IgM Ab Negative (Negative) 01/29/17 05:30 Hep Bs Antigen Negative (Negative) 01/29/17 05:30 Hep B Core IgM Ab Positive (Negative) H 01/29/17 05:30 Hepatitis C Antibody <0.1 s/co ratio (0.0-0.9) 01/29/17 05:30 - Physical Exam Vitals and I&O: Vital Signs Temp 97.8 F 01/31/17 12:31 Pulse 61 01/31/17 14:11 Resp 17 01/31/17 12:31 BP 123/88 01/31/17 14:11 Pulse Ox 99 01/31/17 12:31 Intake & Output 01/30/17 01/31/17 01/31/17 18:59 06:59 18:59 Intake Total 120 Balance 120 Weight (lbs) 47.174 kg 47.174 kg Intake: Oral 120 Other: # Voids 2 2 Active Medications: Current Medications Aspirin (Ecotrin) 81 mg PO DAILY [facility] Stop: 03/29/17 08:59 Last Admin: 01/31/17 09:52 Dose: 81 mg Atorvastatin Calcium (Lipitor) 20 mg PO HS [facility] Stop: 03/29/17 20:59 Last Admin: 01/30/17 20:25 Dose: 20 mg Donepezil HCl (Aricept) 10 mg PO DAILY [facility] Stop: 03/29/17 08:59 Last Admin: 01/31/17 09:53 Dose: 10 mg Famotidine (Pepcid) 20 mg PO DAILY [facility] Stop: 03/29/17 08:59 Last Admin: 01/31/17 09:53 Dose: 20 mg Folic Acid (Folate) 1 mg PO DAILY [facility] Stop: 03/29/17 08:59 Last Admin: 01/31/17 09:52 Dose: 1 mg Hydralazine HCl (Apresoline) 50 mg PO TID [facility] Stop: 03/29/17 08:59 Last Admin: 01/31/17 14:11 Dose: 50 mg Sodium Chloride (Nacl 0.9%) 1,000 mls @ 50 mls/hr IV .Q20H [facility] Stop: 03/28/17 22:29 Last Infusion: 01/29/17 06:06 Dose: 50 mls/hr Albumin Human (Albuminar 25%) 25 gm in 100 mls @ 50 mls/hr IV PRN PRN PRN Reason: BP Support During HD Vancomycin HCl 750 mg/ Sodium (Chloride) 250 mls @ 250 mls/hr IV ONCE ONE Stop: 01/31/17 18:59 Lactulose (Cephulac) 30 gm PO Q24H PRN PRN Reason: Constipation Lorazepam (Ativan) 1 mg IVP Q6HR PRN; Protocol PRN Reason: Agitation Stop: 03/28/17 22:21 Losartan Potassium (Cozaar) 100 mg PO DAILY [facility] Stop: 04/01/17 08:59 Last Admin: 01/31/17 09:52 Dose: 100 mg Memantine (Namenda) 5 mg PO BID [facility] Stop: 03/29/17 08:59 Last Admin: 01/31/17 09:53 Dose: 5 mg Miscellaneous (Clinical Monitoring) 1 ea [facility] DAILY PRN PRN Reason: RENAL Stop: 03/29/17 11:42 Miscellaneous (Vancomycin Iv Per Pharmacy) 1 [facility] PRN PRN PRN Reason: PROTOCOL Stop: 03/31/17 15:22 Mupirocin (Bactroban Oint) 1 appl TP BID [facility] Stop: 03/31/17 16:59 Last Admin: 01/31/17 09:54 Dose: 1 appl Nifedipine (Procardia Xl) 30 mg PO DAILY [facility] Stop: 03/29/17 08:59 Last Admin: 01/31/17 09:53 Dose: 30 mg Sucralfate (Carafate) 1 gm PO ACHS [facility] Stop: 03/29/17 07:29 Last Admin: 01/31/17 11:42 Dose: 1 gm Tamsulosin HCl (Flomax) 0.4 mg PO DAILY [facility] Stop: 03/29/17 08:59 Last Admin: 01/31/17 09:52 Dose: 0.4 mg Vitamin B Complex/Vit C/Folic Acid (Vitamin B Complex W/Vitamin C) 1 tab PO DAILY [facility] Stop: 03/29/17 08:59 Last Admin: 01/31/17 09:53 Dose: 1 tab General: Alert, No acute distress HEENT: Atraumatic, PERRLA Neck: Supple, +2 carotid pulse wo bruit Cardiovascular: Regular rate, Normal S1, Normal S2 Abdomen: Bowel sounds, Soft Extremities: no Clubbing, no Edema Neurological: Sensation intact Skin: no Rash Psych/Mental Status: Mood NL - Procedures Procedures: Procedures Procedure Code Date AV FUSION DIRECT ANY SITE 19619 12/28/16 BYPASS LEFT BRACHIAL ARTERY TO UPPER ARM VEIN, OPEN APPROACH [id number] 12/28/16 INSERT TUNNELED CV CATH 19552 12/28/16 INSERTION OF INFUSION DEV INTO L FEMOR VEIN, PERC APPROACH [id number] 12/28/16 Assessment/Plan - Problem List Patient Problems: All Active Problems AV shunt malfunction (Acute) T82.591A Anemia (Acute) D64.9 ESRD (end stage renal disease) on dialysis (Acute) N18.6, Z99.2 H/O: CVA (cerebrovascular accident) (Acute) Z86.73 HTN (hypertension) (Acute) I10 chonic encephalopathy (Acute) - Assessment Assessment: ESRD on HD ALOC possibly 2nd to period of hypotension Ess Htn TIA BPH dyslipidemia Dementia w/o beh disturbance - Plan Plan: Lab - Result Diagrams 01/29/17 05:30 01/29/17 05:30 Current Medications Aspirin (Ecotrin) 81 mg PO DAILY [facility] Stop: 03/29/17 08:59 Last Admin: 01/29/17 09:41 Dose: 81 mg Atorvastatin Calcium (Lipitor) 20 mg PO HS [facility] Stop: 03/29/17 20:59 Last Admin: 01/28/17 20:37 Dose: 20 mg Donepezil HCl (Aricept) 10 mg PO DAILY [facility] Stop: 03/29/17 08:59 Last Admin: 01/29/17 09:46 Dose: 10 mg Famotidine (Pepcid) 20 mg PO DAILY [facility] Stop: 03/29/17 08:59 Last Admin: 01/29/17 09:40 Dose: 20 mg Folic Acid (Folate) 1 mg PO DAILY [facility] Stop: 03/29/17 08:59 Last Admin: 01/29/17 09:45 Dose: 1 mg Hydralazine HCl (Apresoline) 50 mg PO TID [facility] Stop: 03/29/17 08:59 Last Admin: 01/29/17 11:55 Dose: 50 mg Sodium Chloride (Nacl 0.9%) 1,000 mls @ 50 mls/hr IV .Q20H [facility] Stop: 03/28/17 22:29 Last Infusion: 01/29/17 06:06 Dose: 50 mls/hr Albumin Human (Albuminar 25%) 25 gm in 100 mls @ 50 mls/hr IV PRN PRN PRN Reason: BP Support During HD Lactulose (Cephulac) 30 gm PO Q24H PRN PRN Reason: Constipation Lorazepam (Ativan) 1 mg IVP Q6HR PRN; Protocol PRN Reason: Agitation Stop: 03/28/17 22:21 Losartan Potassium (Cozaar) 50 mg PO DAILY [facility] Stop: 03/29/17 08:59 Last Admin: 01/29/17 11:58 Dose: 50 mg Memantine (Namenda) 5 mg PO BID [facility] Stop: 03/29/17 08:59 Last Admin: 01/29/17 09:46 Dose: 5 mg Miscellaneous (Clinical Monitoring) 1 ea [facility] DAILY PRN PRN Reason: RENAL Stop: 03/29/17 11:42 Nifedipine (Procardia Xl) 30 mg PO DAILY [facility] Stop: 03/29/17 08:59 Last Admin: 01/29/17 11:56 Dose: 30 mg Sucralfate (Carafate) 1 gm PO ACHS [facility] Stop: 03/29/17 07:29 Last Admin: 01/29/17 07:02 Dose: 1 gm Tamsulosin HCl (Flomax) 0.4 mg PO DAILY [facility] Stop: 03/29/17 08:59 Last Admin: 01/29/17 09:46 Dose: 0.4 mg Vitamin B Complex/Vit C/Folic Acid (Vitamin B Complex W/Vitamin C) 1 tab PO DAILY [facility] Stop: 03/29/17 08:59 Last Admin: 01/29/17 11:56 Dose: 1 tab Lab - Result Diagrams 01/31/17 09:00 01/31/17 09:00 scheduled for hd today pt. more alert, does not talk possible dc today Nutritional Asmnt/Malnutr-PDOC - Dietary Evaluation Malnutrition Findings (Please click <Entered> for more info): Nutritional Asmnt/Malnutrition Start: 01/28/17 10: 29 Text: Status: Active Freq: Document 01/28/17 10:29 INEZ (Rec: 01/28/17 10:40 INEZ [email or web address]) Nutritional Asmnt/Malnutrition Patient General Information Nutritional Screening High Risk Diagnosis PNA, Sepsis, Pancreatitis, AMS , ALOC, ESRD on dialysis Pertinent Medical Hx/Surgical Hx HTN, CVA/TIA, dyslipidemia, ESRD, dementia Subjective Information Pt was confused, not able to talk during the time of visit. Spoke with URGENT CARE PHYSICIAN ASSISTANT, pt has teeth, comsumed 50% of breakfast this morning, eating well on cream of wheat but slowly on eggs and pancake. Pt appeared very skinny. Physical exam performed, mild muscle depletion on arms, fat/muscle wasting on shoulder and legs. Last dialysis 01/27 Current Diet Order/ Nutrition Support Renal, low Na Pertinent Medications Folate, Nacl IV, Vitamin B, Vitamin C Pertinent Labs 01/28: Na 133L, K 4.0, Cl 102, BUN 28H, Cr 5.0H, Glu 76, Ca 11.8H 01/27: Alb 3.9 Nutritional Hx/Data Height 1.78 m Height (Calculated Centimeters) 177.8 Current Weight (lbs) 43.182 kg Weight (Calculated Kilograms) 43.2 Weight (Calculated Grams) 96580.0 [place] Body Weight 166 % [place] Body Weight 57 Body Mass Index (BMI) 13.6 Weight Status Underweight GI Symptoms Difficult in: Chewing Food Allergies No Usual diet at home Previous diet at nursing facility per chart: Renal Pureed Skin Integrity/Comment: intact Current %PO Fair (50-74%) Estimated Nutritional Goals BEE in Kcals: Adj wt of IBW Calories/Kcals/Kg 30-35kcal/kg based on adj wt 67kg Kcals Calculated Protein: Adj wt of IBW Protein g/k.5-2.0 Protein Calculated 100-134 Fluid: ml Per MD d/t ESRD Nutritional Problem 2. Problem Problem Increased nutrition needs ( calorie and protein) Etiology increased metabolic demands for healing and recovery Signs/Symptoms: dx of sepsis, ESRD on dialysis , muscle/fast wasting 1. Problem Problem Inadequate oral intake Etiology pt having difficulty on chewing regular diet Signs/Symptoms: PO intake 50% Malnutrition Alert Body Fat Depletion (Non-Severe) Mild Depletion Muscle Mass (Severe) Mod to Severe Depletion Protein-Calorie Malnutrition Severe Is there a minimum of two criteria Yes selected? Query Text:Check all the applicable criteria. A minimum of two criteria are recommended for diagnosis of either severe or non-severe malnutrition. Intervention/Recommendation Recommendations by RD Protein supplementation Comments 1. Recommend diet order change to Renal Pureed. Made aware of RN to correct diet order, called kitchen to serve Renal Pureed diet for lunch. 2. Recommend Novasource Renal BID to increase nutritional intake 3. Monitor diet tolerance, PO intake, labs, wt weekly and skin integrity. 4. F/U as high risk in 2-3 days, 01/30-01/31 Expected Outcomes/Goals Expected Outcomes/Goals 1. PO to tolerate renal pureed diet, PO intake >75% to meet nutritional needs, pt to consume supplements 2. wt to remain stable, change toward to IBW 3. Labs to improve 4. skin to remain intact
[2017-01-31] MEDS ORDERED: Probiotic Screen MC PRN (15:31)
--- NOTE | 2017-01-31 16:46 | Consultation ---
Consult Note - Consult Note Service Date: 01/31/17 Referring Physician: Albaro Briceño Consult Note: PHYSICIAN Consultation Note: Date of Admission: 01/27/17 Purpose of Consultation: Chief Complaint: Patient SAUNDRA WALLER was admitted to location [facility] I with PANCREATITIS. History of Present Illness: 56 year old male with history of CKD 5 on HD, hyperlipidemia, admitted for altered mental status. on initial evaluation, he was afebrile. sepsis w/u performed. blood cs grew mrsa. id consult was called Past Medical History: Diagnoses HYPERLIPIDEMIA, UNSPECIFIED (01/27/17) HYPOCALCEMIA (01/27/17) HYPO-OSMOLALITY AND HYPONATREMIA (01/27/17) HYP CHR KIDNEY DISEASE W STAGE 5 CHR KIDNEY DISEASE OR ESRD (01/27/17) PNEUMONIA, UNSPECIFIED ORGANISM (01/27/17) ACUTE PANCREATITIS WITHOUT NECROSIS OR INFECTION, UNSP (01/27/17) END STAGE RENAL DISEASE (01/27/17) TRANSIENT ALTERATION OF AWARENESS (01/27/17) PRSNL HX OF TIA (TIA), AND CEREB INFRC W/O RESID DEFICITS (01/27/17) DEPENDENCE ON RENAL DIALYSIS (01/27/17) Allergies Allergy/AdvReac Type Severity Reaction Status Date / Time No Known Allergies Allergy Verified 01/27/17 15:52 Vital Signs Temp 97.8 F 01/31/17 12:31 Pulse 61 01/31/17 14:11 Resp 17 01/31/17 12:31 BP 123/88 01/31/17 14:11 Pulse Ox 99 01/31/17 12:31 Intake & Output 01/30/17 01/31/17 01/31/17 18:59 06:59 18:59 Intake Total 120 Balance 120 Weight (lbs) 47.174 kg 47.174 kg Intake: Oral 120 Other: # Voids 2 2 Laboratory Results - last 24 hr 01/30/17 01/31/17 01/31/17 12:00 09:00 09:00 WBC 5.4 D RBC 3.97 L Hgb 11.4 L Hct 35.1 L D MCV 88.5 MCH 28.8 MCHC Differential 32.6 RDW 16.9 Plt Count 331 MPV 8.7 Neutrophils % 72.5 Lymphocytes % 19.0 L Monocytes % 6.5 Eosinophils % 1.9 Basophils % 0.1 Sodium Potassium Chloride Carbon Dioxide Anion Gap BUN Creatinine 6.2 H* Est GFR ( Amer) Est GFR (Non-Af Amer) BUN/Creatinine Ratio Glucose Whole Bld Lactic Acid Calcium Amylase Lipase Random Vancomycin 18.0 01/31/17 01/31/17 01/31/17 09:00 09:00 11:20 WBC RBC Hgb Hct MCV MCH MCHC Differential RDW Plt Count MPV Neutrophils % Lymphocytes % Monocytes % Eosinophils % Basophils % Sodium 138 Potassium 3.7 Chloride 108 H Carbon Dioxide 21.5 Anion Gap 12.2 BUN 41 H Creatinine 7.2 H* Est GFR ( Amer) 10.3 Est GFR (Non-Af Amer) 8.5 BUN/Creatinine Ratio 5.7 Glucose 88 Whole Bld Lactic Acid 1.02 Calcium 11.1 H Amylase 117 H Lipase 128 H Random Vancomycin Home Medication Medication Instructions Recorded Type Aspirin EC [Ecotrin] 81 mg PO DAILY 12/28/16 History Atorvastatin Calcium [Lipitor] 20 mg PO HS 12/28/16 History Donepezil Hcl [Aricept] 10 mg PO DAILY 12/28/16 History Famotidine [Pepcid] 20 mg PO DAILY 12/28/16 History Folic Acid [Folate*] 1 mg PO DAILY 12/28/16 History Folic Acid/Vit Bcomp,C 0.8 mg PO DAILY 12/28/16 History [Nephro-Miles Tablet] Hydralazine HCl 50 mg PO TID 12/28/16 History Lactulose 30 ml PO Q24H PRN 12/28/16 History Losartan Potassium [Cozaar] 50 mg PO DAILY 12/28/16 History Memantine [Namenda] 5 mg PO BID 12/28/16 History Nifedipine [Procardia Xl*] 30 mg PO DAILY 12/28/16 History Sucralfate [Carafate] 1 gm PO ACHS 12/28/16 History Tamsulosin HCl [Flomax] 0.4 mg PO DAILY 12/28/16 History cloNIDine HCl [Catapres] 0.1 mg PO Q6H PRN 12/28/16 History Vitamin B Complex w/Vitamin C 1 tab PO DAILY tab 12/31/16 Rx Current Medications Generic Name Dose Route Start Last Admin Trade Name Freq PRN Reason Stop Dose Admin Aspirin 81 mg 01/28/17 09:00 01/31/17 09:52 Ecotrin PO 03/29/17 08:59 81 mg DAILY [facility] Administration Atorvastatin Calcium 20 mg 01/28/17 21:00 01/30/17 20:25 Lipitor PO 03/29/17 20:59 20 mg HS [facility]KA Administration Donepezil HCl 10 mg 01/28/17 09:00 01/31/17 09:53 Aricept PO 03/29/17 08:59 10 mg DAILY [facility] Administration Famotidine 20 mg 01/28/17 09:00 01/31/17 09:53 Pepcid PO 03/29/17 08:59 20 mg DAILY [facility] Administration Folic Acid 1 mg 01/28/17 09:00 01/31/17 09:52 Folate PO 03/29/17 08:59 1 mg DAILY [facility] Administration Heparin Sodium (Porcine) 5,000 units 01/31/17 16:45 Heparin SUBQ 04/01/17 16:44 X1 [facility]KA Hydralazine HCl 50 mg 01/28/17 09:00 01/31/17 14:11 Apresoline PO 03/29/17 08:59 50 mg TID [facility] Administration Sodium Chloride 1,000 mls @ 50 mls/hr 01/27/17 22:30 01/29/17 06:06 Nacl 0.9% IV 03/28/17 22:29 50 mls/hr .Q20H [facility] Infusion Albumin Human 25 gm in 100 mls @ 50 mls/hr 01/29/17 00:00 Albuminar 25% IV PRN PRN BP Support During HD Vancomycin HCl 750 mg/ Sodium 250 mls @ 250 mls/hr 01/31/17 18:00 Chloride IV 01/31/17 18:59 ONCE ONE Lactulose 30 gm 01/28/17 07:12 Cephulac PO Q24H PRN Constipation Lorazepam 1 mg 01/27/17 22:22 Ativan IVP 03/28/17 22:21 Q6HR PRN Agitation Protocol Losartan Potassium 100 mg 01/31/17 09:00 01/31/17 09:52 Cozaar PO 04/01/17 08:59 100 mg DAILY [facility] Administration Memantine 5 mg 01/28/17 09:00 01/31/17 16:15 Namenda PO 03/29/17 08:59 5 mg BID [facility] Administration Miscellaneous 1 ea 01/28/17 11:43 Clinical Monitoring 03/29/17 11:42 DAILY PRN RENAL Miscellaneous 1 ea 01/30/17 15:23 Vancomycin Iv Per Pharmacy 03/31/17 15:22 PRN PRN PROTOCOL Miscellaneous 1 01/31/17 15:31 Probiotic Screen 04/01/17 15:30 PRN PRN PROTOCOL Mupirocin 1 appl 01/30/17 17:00 01/31/17 16:15 Bactroban Oint TP 03/31/17 16:59 1 appl BID [facility] Administration Nifedipine 30 mg 01/28/17 09:00 01/31/17 09:53 Procardia Xl PO 03/29/17 08:59 30 mg DAILY [facility] Administration Sucralfate 1 gm 01/28/17 07:30 01/31/17 16:16 Carafate PO 03/29/17 07:29 1 gm ACHS [facility] Administration Tamsulosin HCl 0.4 mg 01/28/17 09:00 01/31/17 09:52 Flomax PO 03/29/17 08:59 0.4 mg DAILY [facility] Administration Vitamin B Complex/Vit C/Folic Acid 1 tab 01/28/17 09:00 01/31/17 09:53 Vitamin B Complex W/Vitamin C PO 03/29/17 08:59 1 tab DAILY [facility] Administration Review of Systems: A 12 point ROS was reviewed with the pertinent positive and negatives noted in the HPI. Social History Smoking Status Smoker, status unknown Drug Use No Alcohol Use No Family Medical History Family Medical History Start: 01/27/17 19: 54 Freq: ONCE Status: Active Document 01/27/17 21:50 JODI (Rec: 01/27/17 23:32 JDOI [email or web address]) Family Medical History Mother History Unknown Yes Physical Exam: General: cachectic. HEENT: head is normocephalic.atraumatic. oral cavity: moist, pink tongue. Eyes : pallor is present. Neck: supple. no jvd. Cardio: s1 and S 2 WNL. regular rhythm. Respiratory: CTAP Abdominal: soft NT ND BS present Genital/Urinary: deferred Extremities: right groin catheter. Neurological: AAOx3. Assessment: 1. MRSA bacteremia, source unknown. 2. CKD 5 on HD, 3. Anemia. 4. Cachexia. Plan: Will continue vanco iv and check ECHO, repeat blood cs, CT a/p/c. Change the line. Thank you Dr Briceño for involving me in taking care of this patient. Signed, Matthew Hermosillo M.D. [id number]
[2017-01-31] MEDS: Sodium Chloride 0.9% 1,000 ML IV SCH (18:08)
[2017-01-31] MEDS: Atorvastatin Calcium 10 MG TAB PO SCH (21:17)
[2017-02-01 06:44] LABS: % BASOPHILS 1.8 % (0.0-2.0); % EOSINOPHILS 2.1 % (0.0-5.0); % LYMPHOCYTES 16.9 % (20.0-50.0); % NEUTROPHILS 73.2 % (40.0-80.0); HEMATOCRIT 33.8 % (41.0-60); HEMOGLOBIN 11.2 gm/dL (12-16); MEAN CELL VOLUME 88.5 fl (80-99); MEAN CORPUSCULAR HEMOGLOBIN 29.2 pg (26.0-30.0); MEAN PLATELET VOLUME 8.4 fl; NEUTROPHILE ABSOLUTE 6.2 Th/cmm (1.8-8.0); PLATELET COUNT 280 Th/cmm (150-400); RED BLOOD COUNT 3.82 Mil/cmm (4.30-5.70); RED CELL DISTRIBUTION WIDTH 17.1 % (11.5-20.0)
[2017-02-01 06:53] LABS: WHITE BLOOD COUNT 8.6 Th/cmm (4.8-10.8)
[2017-02-01 07:03] LABS: ANION GAP 8.5 (7.0-16.0); BUN/CREATININE RATIO 5.1; CALCIUM SERUM 10.2 mg/dL (8.6-10.3); POTASSIUM SERUM 3.5 mEq/L (3.5-5.1)
[2017-02-01 08:25] LABS: CREATININE - SERUM 5.5 mg/dL (0.7-1.3)
--- NOTE | 2017-02-01 09:02 | Diagnostic Imaging Report ---
Exam: CT examination of the chest. HISTORY: Sepsis. Total DLP equals 235 CTDI equals 6.1 Findings: Multiple contiguous thin section of the chest were obtained from thoracic outlet to the upper abdomen without the administration of contrast material. No prior studies available comparison. The study demonstrates a normal appearance of the great vessels of the neck. Adenopathy is difficult to appreciated due to lack of contrast material. Mediastinal structures midline the heart is enlarged. Adenopathy is difficult to appreciated without contrast material. There is evidence for left basilar atelectasis. There is evidence of COPD changes with mild bullous process. No evidence for active pulmonic infiltrates or effusions appreciated. IMPRESSION: Limited exam due to lack of contrast material. 1. Cardiomegaly 2. Left basilar atelectasis mild pleural thickening. Early pneumonic infiltrate cannot be excluded clinical correlation follow-up examination recommended.
[2017-02-01] MEDS: NIFEdipine 30 mg ER Tab PO SCH (09:07)
[2017-02-01] MEDS: Vitamin B Complex w/Vitamin C Tab PO SCH (09:08)
--- NOTE | 2017-02-01 18:04 | General Progress Note ---
Subjective - Review of Systems Service Date: 02/01/17 Subjective: awake, comfortable, nonverbal Objective - Results Result Diagrams: 02/01/17 06:24 02/01/17 06:24 Recent Labs: Laboratory Last Values WBC 8.6 Th/cmm (4.8-10.8) D 02/01/17 06:24 RBC 3.82 Mil/cmm (4.30-5.70) L 02/01/17 06:24 Hgb 11.2 gm/dL (12-16) L 02/01/17 06:24 Hct 33.8 % (41.0-60) L 02/01/17 06:24 MCV 88.5 fl (80-99) 02/01/17 06:24 MCH 29.2 pg (26.0-30.0) 02/01/17 06:24 MCHC Differential 33.0 pg (28.0-36.0) 02/01/17 06:24 RDW 17.1 % (11.5-20.0) 02/01/17 06:24 Plt Count 280 Th/cmm (150-400) 02/01/17 06:24 MPV 8.4 fl 02/01/17 06:24 Neutrophils % 73.2 % (40.0-80.0) 02/01/17 06:24 Lymphocytes % 16.9 % (20.0-50.0) L 02/01/17 06:24 Monocytes % 6.0 % (2.0-10.0) 02/01/17 06:24 Eosinophils % 2.1 % (0.0-5.0) 02/01/17 06:24 Basophils % 1.8 % (0.0-2.0) 02/01/17 06:24 PT 9.0 SECONDS (9.5-11.5) L 01/30/17 12:00 INR 1.00 (0.5-1.4) 01/30/17 12:00 PTT (Actin FS) 24.3 SECONDS (26.0-38.0) L 01/30/17 12:00 Sodium 139 mEq/L (136-145) 02/01/17 06:24 Potassium 3.5 mEq/L (3.5-5.1) 02/01/17 06:24 Chloride 108 mEq/L (98-107) H 02/01/17 06:24 Carbon Dioxide 26.0 mEq/L (21.0-31.0) 02/01/17 06:24 Anion Gap 8.5 (7.0-16.0) 02/01/17 06:24 BUN 28 mg/dL (7-25) H 02/01/17 06:24 Creatinine 5.5 mg/dL (0.7-1.3) H* 02/01/17 06:24 Est GFR ( Amer) 14.0 ml/min (>90) 02/01/17 06:24 Est GFR (Non-Af Amer) 11.6 ml/min 02/01/17 06:24 BUN/Creatinine Ratio 5.1 02/01/17 06:24 Glucose 76 mg/dL (70-105) D 02/01/17 06:24 POC Glucose 113 MG/DL (70-105) H 01/29/17 13:02 Whole Bld Lactic Acid 1.02 mmol/L (0.60-1.99) 01/31/17 11:20 Calcium 10.2 mg/dL (8.6-10.3) 02/01/17 06:24 Total Bilirubin 0.4 mg/dL (0.3-1.0) 01/27/17 16:41 AST 12 U/L (13-39) L 01/27/17 16:41 ALT 16 U/L (7-52) 01/27/17 16:41 Alkaline Phosphatase 56 U/L (34-104) 01/27/17 16:41 Creatine Kinase 18 U/L (30-223) L 01/27/17 16:41 Troponin I 0.01 ng/mL (0.01-0.05) 01/27/17 16:41 B-Natriuretic Peptide 52.7 pg/mL (5.0-100.0) 01/27/17 16:41 Total Protein 7.3 gm/dL (6.0-8.3) 01/27/17 16:41 Albumin 3.9 gm/dL (4.2-5.5) L 01/27/17 16:41 Globulin 3.4 gm/dL 01/27/17 16:41 Albumin/Globulin Ratio 1.2 (1.0-1.8) 01/27/17 16:41 Triglycerides 87 mg/dL (<150) 01/28/17 04:55 Cholesterol 132 mg/dL (<200) 01/28/17 04:55 LDL Cholesterol Direct 62 mg/dL (75-193) L 01/28/17 04:55 HDL Cholesterol 54 mg/dL (23-92) 01/28/17 04:55 Amylase 117 U/L (29-103) H 01/31/17 09:00 Lipase 128 U/L (11-82) H 01/31/17 09:00 Random Vancomycin 18.0 ug/mL (5.0-40.0) 01/31/17 09:00 Hepatitis A IgM Ab Negative (Negative) 01/29/17 05:30 Hep Bs Antigen Negative (Negative) 01/29/17 05:30 Hep B Core IgM Ab Positive (Negative) H 01/29/17 05:30 Hepatitis C Antibody <0.1 s/co ratio (0.0-0.9) 01/29/17 05:30 - Physical Exam Vitals and I&O: Vital Signs Temp 97.4 F 02/01/17 15:50 Pulse 68 02/01/17 15:50 Resp 18 02/01/17 15:50 BP 143/80 02/01/17 15:50 Pulse Ox 100 02/01/17 15:50 Intake & Output 01/31/17 02/01/17 02/01/17 18:59 06:59 18:59 Intake Total 33.333 Balance 33.333 Weight (lbs) 47.174 kg 47.174 kg Intake: Intake, IV Amount 33.333 Sodium Chloride 0.9% 1, 33.333 000 ml @ 50 mls/hr IV . Q20H [facility] Rx#:[id number] Other: # Voids 2 3 Active Medications: Current Medications Aspirin (Ecotrin) 81 mg PO DAILY [facility]KA Stop: 03/29/17 08:59 Last Admin: 02/01/17 09:07 Dose: 81 mg Atorvastatin Calcium (Lipitor) 20 mg PO HS MIKA Stop: 03/29/17 20:59 Last Admin: 01/31/17 21:17 Dose: 20 mg Donepezil HCl (Aricept) 10 mg PO DAILY [facility]KA Stop: 03/29/17 08:59 Last Admin: 02/01/17 09:06 Dose: 10 mg Famotidine (Pepcid) 20 mg PO DAILY [facility] Stop: 03/29/17 08:59 Last Admin: 02/01/17 09:07 Dose: 20 mg Folic Acid (Folate) 1 mg PO DAILY [facility] Stop: 03/29/17 08:59 Last Admin: 02/01/17 09:06 Dose: 1 mg Hydralazine HCl (Apresoline) 50 mg PO TID MIKA Stop: 03/29/17 08:59 Last Admin: 02/01/17 13:26 Dose: 50 mg Sodium Chloride (Nacl 0.9%) 1,000 mls @ 50 mls/hr IV .Q20H [facility] Stop: 03/28/17 22:29 Last Infusion: 01/31/17 18:48 Dose: 50 mls/hr Albumin Human (Albuminar 25%) 25 gm in 100 mls @ 50 mls/hr IV PRN PRN PRN Reason: BP Support During HD Lactulose (Cephulac) 30 gm PO Q24H PRN PRN Reason: Constipation Lorazepam (Ativan) 1 mg IVP Q6HR PRN; Protocol PRN Reason: Agitation Stop: 03/28/17 22:21 Losartan Potassium (Cozaar) 100 mg PO DAILY [facility] Stop: 04/01/17 08:59 Last Admin: 02/01/17 09:07 Dose: 100 mg Memantine (Namenda) 5 mg PO BID [facility] Stop: 03/29/17 08:59 Last Admin: 02/01/17 16:49 Dose: 5 mg Miscellaneous (Clinical Monitoring) 1 ea MC DAILY PRN PRN Reason: RENAL Stop: 03/29/17 11:42 Miscellaneous (Vancomycin Iv Per Pharmacy) 1 ea PRN PRN PRN Reason: PROTOCOL Stop: 03/31/17 15:22 Miscellaneous (Probiotic Screen) 1 ea PRN PRN PRN Reason: PROTOCOL Stop: 04/01/17 15:30 Mupirocin (Bactroban Oint) 1 appl TP BID [facility] Stop: 03/31/17 16:59 Last Admin: 02/01/17 16:48 Dose: 1 appl Nifedipine (Procardia Xl) 30 mg PO DAILY [facility] Stop: 03/29/17 08:59 Last Admin: 02/01/17 09:07 Dose: 30 mg Sucralfate (Carafate) 1 gm PO ACHS [facility] Stop: 03/29/17 07:29 Last Admin: 02/01/17 16:48 Dose: 1 gm Tamsulosin HCl (Flomax) 0.4 mg PO DAILY [facility]KA Stop: 03/29/17 08:59 Last Admin: 02/01/17 09:06 Dose: 0.4 mg Vitamin B Complex/Vit C/Folic Acid (Vitamin B Complex W/Vitamin C) 1 tab PO DAILY [facility]KA Stop: 03/29/17 08:59 Last Admin: 02/01/17 09:08 Dose: 1 tab General: Alert, No acute distress HEENT: Atraumatic, PERRLA Neck: Supple, +2 carotid pulse wo bruit Cardiovascular: Regular rate, Normal S1, Normal S2 Lungs: Clear to auscultation Abdomen: Bowel sounds, Soft Extremities: no Clubbing, no Edema Neurological: Sensation intact Skin: no Rash Psych/Mental Status: Mood NL - Procedures Procedures: Procedures Procedure Code Date AV FUSION DIRECT ANY SITE 18105 12/28/16 BYPASS LEFT BRACHIAL ARTERY TO UPPER ARM VEIN, OPEN APPROACH [id number] 12/28/16 INSERT TUNNELED CV CATH 96477 12/28/16 INSERTION OF INFUSION DEV INTO L FEMOR VEIN, PERC APPROACH [id number] 12/28/16 Assessment/Plan - Problem List Patient Problems: All Active Problems AV shunt malfunction (Acute) T82.591A Anemia (Acute) D64.9 ESRD (end stage renal disease) on dialysis (Acute) N18.6, Z99.2 H/O: CVA (cerebrovascular accident) (Acute) Z86.73 HTN (hypertension) (Acute) I10 chonic encephalopathy (Acute) - Assessment Assessment: ESRD on HD ALOC possibly 2nd to period of hypotension Ess Htn TIA BPH dyslipidemia Dementia w/o beh disturbance MRSA septicemia - Plan Plan: Lab - Result Diagrams 01/29/17 05:30 01/29/17 05:30 Current Medications Aspirin (Ecotrin) 81 mg PO DAILY [facility] Stop: 03/29/17 08:59 Last Admin: 01/29/17 09:41 Dose: 81 mg Atorvastatin Calcium (Lipitor) 20 mg PO HS MIKA Stop: 03/29/17 20:59 Last Admin: 01/28/17 20:37 Dose: 20 mg Donepezil HCl (Aricept) 10 mg PO DAILY [facility]KA Stop: 03/29/17 08:59 Last Admin: 01/29/17 09:46 Dose: 10 mg Famotidine (Pepcid) 20 mg PO DAILY [facility] Stop: 03/29/17 08:59 Last Admin: 01/29/17 09:40 Dose: 20 mg Folic Acid (Folate) 1 mg PO DAILY [facility] Stop: 03/29/17 08:59 Last Admin: 01/29/17 09:45 Dose: 1 mg Hydralazine HCl (Apresoline) 50 mg PO TID MIKA Stop: 03/29/17 08:59 Last Admin: 01/29/17 11:55 Dose: 50 mg Sodium Chloride (Nacl 0.9%) 1,000 mls @ 50 mls/hr IV .Q20H [facility] Stop: 03/28/17 22:29 Last Infusion: 01/29/17 06:06 Dose: 50 mls/hr Albumin Human (Albuminar 25%) 25 gm in 100 mls @ 50 mls/hr IV PRN PRN PRN Reason: BP Support During HD Lactulose (Cephulac) 30 gm PO Q24H PRN PRN Reason: Constipation Lorazepam (Ativan) 1 mg IVP Q6HR PRN; Protocol PRN Reason: Agitation Stop: 03/28/17 22:21 Losartan Potassium (Cozaar) 50 mg PO DAILY [facility] Stop: 03/29/17 08:59 Last Admin: 01/29/17 11:58 Dose: 50 mg Memantine (Namenda) 5 mg PO BID [facility] Stop: 03/29/17 08:59 Last Admin: 01/29/17 09:46 Dose: 5 mg Miscellaneous (Clinical Monitoring) 1 ea MC DAILY PRN PRN Reason: RENAL Stop: 03/29/17 11:42 Nifedipine (Procardia Xl) 30 mg PO DAILY [facility]KA Stop: 03/29/17 08:59 Last Admin: 01/29/17 11:56 Dose: 30 mg Sucralfate (Carafate) 1 gm PO ACHS [facility] Stop: 03/29/17 07:29 Last Admin: 01/29/17 07:02 Dose: 1 gm Tamsulosin HCl (Flomax) 0.4 mg PO DAILY [facility] Stop: 03/29/17 08:59 Last Admin: 01/29/17 09:46 Dose: 0.4 mg Vitamin B Complex/Vit C/Folic Acid (Vitamin B Complex W/Vitamin C) 1 tab PO DAILY [facility]KA Stop: 03/29/17 08:59 Last Admin: 01/29/17 11:56 Dose: 1 tab Lab - Result Diagrams 02/01/17 06:24 02/01/17 06:24 pt. was dialyzed yesterday & tolerated it well pt. more alert, does not talk BC grew MRSA will change site of gracie cath. Nutritional Asmnt/Malnutr-PDOC - Dietary Evaluation Malnutrition Findings (Please click <Entered> for more info): Nutritional Asmnt/Malnutrition Start: 01/28/17 10: 29 Text: Status: Active Freq: Document 01/28/17 10:29 LCADIG (Rec: 01/28/17 10:40 [email or web address]) Nutritional Asmnt/Malnutrition Patient General Information Nutritional Screening High Risk Diagnosis PNA, Sepsis, Pancreatitis, AMS , ALOC, ESRD on dialysis Pertinent Medical Hx/Surgical Hx HTN, CVA/TIA, dyslipidemia, ESRD, dementia Subjective Information Pt was confused, not able to talk during the time of visit. Spoke with FINGERNAIL TECHNICIAN, pt has teeth, comsumed 50% of breakfast this morning, eating well on cream of wheat but slowly on eggs and pancake. Pt appeared very skinny. Physical exam performed, mild muscle depletion on arms, fat/muscle wasting on shoulder and legs. Last dialysis 01/27 Current Diet Order/ Nutrition Support Renal, low Na Pertinent Medications Folate, Nacl IV, Vitamin B, Vitamin C Pertinent Labs 01/28: Na 133L, K 4.0, Cl 102, BUN 28H, Cr 5.0H, Glu 76, Ca 11.8H 01/27: Alb 3.9 Nutritional Hx/Data Height 1.78 m Height (Calculated Centimeters) 177.8 Current Weight (lbs) 43.182 kg Weight (Calculated Kilograms) 43.2 Weight (Calculated Grams) 87276.0 [place] Body Weight 166 % [place] Body Weight 57 Body Mass Index (BMI) 13.6 Weight Status Underweight GI Symptoms Difficult in: Chewing Food Allergies No Usual diet at home Previous diet at nursing facility per chart: Renal Pureed Skin Integrity/Comment: intact Current %PO Fair (50-74%) Estimated Nutritional Goals BEE in Kcals: Adj wt of IBW Calories/Kcals/Kg 30-35kcal/kg based on adj wt 67kg Kcals Calculated Protein: Adj wt of IBW Protein g/k.5-2.0 Protein Calculated 100-134 Fluid: ml Per MD d/t ESRD Nutritional Problem 2. Problem Problem Increased nutrition needs ( calorie and protein) Etiology increased metabolic demands for healing and recovery Signs/Symptoms: dx of sepsis, ESRD on dialysis , muscle/fast wasting 1. Problem Problem Inadequate oral intake Etiology pt having difficulty on chewing regular diet Signs/Symptoms: PO intake 50% Malnutrition Alert Body Fat Depletion (Non-Severe) Mild Depletion Muscle Mass (Severe) Mod to Severe Depletion Protein-Calorie Malnutrition Severe Is there a minimum of two criteria Yes selected? Query Text:Check all the applicable criteria. A minimum of two criteria are recommended for diagnosis of either severe or non-severe malnutrition. Intervention/Recommendation Recommendations by RD Protein supplementation Comments 1. Recommend diet order change to Renal Pureed. Made aware of RN to correct diet order, called kitchen to serve Renal Pureed diet for lunch. 2. Recommend Novasource Renal BID to increase nutritional intake 3. Monitor diet tolerance, PO intake, labs, wt weekly and skin integrity. 4. F/U as high risk in 2-3 days, 01/30-01/31 Expected Outcomes/Goals Expected Outcomes/Goals 1. PO to tolerate renal pureed diet, PO intake >75% to meet nutritional needs, pt to consume supplements 2. wt to remain stable, change toward to IBW 3. Labs to improve 4. skin to remain intact
[2017-02-01] MEDS: Sodium Chloride 0.9% 1,000 ML IV SCH (20:35)
[2017-02-01] MEDS: Atorvastatin Calcium 10 MG TAB PO SCH (20:36)
--- NOTE | 2017-02-02 02:04 | Progress Notes ---
DATE: 02/01/2017 SUBJECTIVE: The patient was seen in his room lying on the bed. The patient is a poor historian due to medical condition, otherwise the patient appears to be comfortable in no acute distress. OBJECTIVE: VITAL SIGNS: Temperature 97, heart rate of 61, blood pressure 171/98, respirations of 18, 98% on room air. HEENT: Head is atraumatic and normocephalic. Eyes: Bilateral conjunctivae are clear. Bilateral pupils are equally round and reactive. NECK: Supple. No JVD. CARDIOVASCULAR: S1 and S2, without murmur. PULMONARY: Clear to auscultation. GASTROINTESTINAL: Soft and nontender without guarding. Positive bowel sounds. MUSCULOSKELETAL: No clubbing, no cyanosis noted. ASSESSMENT: 1. Pancreatitis. 2. End-stage renal disease, hemodialysis dependent. 3. Hypertension. 4. Pneumonia. 5. Hyperlipidemia. 6. History of cerebrovascular accident. PLAN: We will follow up with ID for antibiotic management. We will also follow up with the human resources psychologist for hemodialysis schedule. Treatment plans were discussed with the patient's nurse. Treatment plans were discussed with Dr. Briceño. JOB# [id number]
[2017-02-02 05:14] LABS: % EOSINOPHILS 2.8 % (0.0-5.0); % LYMPHOCYTES 21.6 % (20.0-50.0); % MONOCYTES 7.9 % (2.0-10.0); % NEUTROPHILS 67.7 % (40.0-80.0); HEMATOCRIT 31.8 % (41.0-60); HEMOGLOBIN 10.3 gm/dL (12-16); MEAN CELL VOLUME 88.2 fl (80-99); MEAN CORPUSCULAR HEMOGLOBIN 28.5 pg (26.0-30.0); MEAN CORPUSCULAR HGB CONC 32.3 pg (28.0-36.0); MEAN PLATELET VOLUME 8.3 fl; NEUTROPHILE ABSOLUTE 4.2 Th/cmm (1.8-8.0); PLATELET COUNT 299 Th/cmm (150-400); RED CELL DISTRIBUTION WIDTH 16.6 % (11.5-20.0)
[2017-02-02 05:33] LABS: ANION GAP 8.6 (7.0-16.0); BUN/CREATININE RATIO 5.3; CALCIUM SERUM 10.1 mg/dL (8.6-10.3); CARBON DIOXIDE 24.3 mEq/L (21.0-31.0); POTASSIUM SERUM 3.9 mEq/L (3.5-5.1)
[2017-02-02 06:10] LABS: WHITE BLOOD COUNT 6.3 Th/cmm (4.8-10.8)
[2017-02-02 06:40] LABS: CREATININE - SERUM 6.4 mg/dL (0.7-1.3)
[2017-02-02] MEDS: NIFEdipine 30 mg ER Tab PO SCH (08:30)
[2017-02-02] MEDS: Vitamin B Complex w/Vitamin C Tab PO SCH (08:30)
--- NOTE | 2017-02-02 09:39 | General Progress Note ---
Subjective - Review of Systems Service Date: 02/02/17 Events since last encounter: has permcath right femoral vein, patient is cotracted, access is clotted suggest: permcath in IJ or subclavian, shunt or fistula arm vein mapping ordered Objective - Results Result Diagrams: 02/02/17 04:50 02/02/17 04:50 Recent Labs: Laboratory Last Values WBC 6.3 Th/cmm (4.8-10.8) D 02/02/17 04:50 RBC 3.60 Mil/cmm (4.30-5.70) L 02/02/17 04:50 Hgb 10.3 gm/dL (12-16) L 02/02/17 04:50 Hct 31.8 % (41.0-60) L 02/02/17 04:50 MCV 88.2 fl (80-99) 02/02/17 04:50 MCH 28.5 pg (26.0-30.0) 02/02/17 04:50 MCHC Differential 32.3 pg (28.0-36.0) 02/02/17 04:50 RDW 16.6 % (11.5-20.0) 02/02/17 04:50 Plt Count 299 Th/cmm (150-400) 02/02/17 04:50 MPV 8.3 fl 02/02/17 04:50 Neutrophils % 67.7 % (40.0-80.0) 02/02/17 04:50 Lymphocytes % 21.6 % (20.0-50.0) 02/02/17 04:50 Monocytes % 7.9 % (2.0-10.0) 02/02/17 04:50 Eosinophils % 2.8 % (0.0-5.0) 02/02/17 04:50 Basophils % 0.0 % (0.0-2.0) 02/02/17 04:50 PT 9.0 SECONDS (9.5-11.5) L 01/30/17 12:00 INR 1.00 (0.5-1.4) 01/30/17 12:00 PTT (Actin FS) 24.3 SECONDS (26.0-38.0) L 01/30/17 12:00 Sodium 136 mEq/L (136-145) 02/02/17 04:50 Potassium 3.9 mEq/L (3.5-5.1) 02/02/17 04:50 Chloride 107 mEq/L (98-107) 02/02/17 04:50 Carbon Dioxide 24.3 mEq/L (21.0-31.0) 02/02/17 04:50 Anion Gap 8.6 (7.0-16.0) 02/02/17 04:50 BUN 34 mg/dL (7-25) H 02/02/17 04:50 Creatinine 6.4 mg/dL (0.7-1.3) H* 02/02/17 04:50 Est GFR ( Amer) 11.8 ml/min (>90) 02/02/17 04:50 Est GFR (Non-Af Amer) 9.7 ml/min 02/02/17 04:50 BUN/Creatinine Ratio 5.3 02/02/17 04:50 Glucose 78 mg/dL (70-105) 02/02/17 04:50 POC Glucose 113 MG/DL (70-105) H 01/29/17 13:02 Whole Bld Lactic Acid 1.02 mmol/L (0.60-1.99) 01/31/17 11:20 Calcium 10.1 mg/dL (8.6-10.3) 02/02/17 04:50 Total Bilirubin 0.4 mg/dL (0.3-1.0) 01/27/17 16:41 AST 12 U/L (13-39) L 01/27/17 16:41 ALT 16 U/L (7-52) 01/27/17 16:41 Alkaline Phosphatase 56 U/L (34-104) 01/27/17 16:41 Creatine Kinase 18 U/L (30-223) L 01/27/17 16:41 Troponin I 0.01 ng/mL (0.01-0.05) 01/27/17 16:41 B-Natriuretic Peptide 52.7 pg/mL (5.0-100.0) 01/27/17 16:41 Total Protein 7.3 gm/dL (6.0-8.3) 01/27/17 16:41 Albumin 3.9 gm/dL (4.2-5.5) L 01/27/17 16:41 Globulin 3.4 gm/dL 01/27/17 16:41 Albumin/Globulin Ratio 1.2 (1.0-1.8) 01/27/17 16:41 Triglycerides 87 mg/dL (<150) 01/28/17 04:55 Cholesterol 132 mg/dL (<200) 01/28/17 04:55 LDL Cholesterol Direct 62 mg/dL (75-193) L 01/28/17 04:55 HDL Cholesterol 54 mg/dL (23-92) 01/28/17 04:55 Amylase 117 U/L (29-103) H 01/31/17 09:00 Lipase 128 U/L (11-82) H 01/31/17 09:00 Random Vancomycin 21.6 ug/mL (5.0-40.0) 02/02/17 04:50 Hepatitis A IgM Ab Negative (Negative) 01/29/17 05:30 Hep Bs Antigen Negative (Negative) 01/29/17 05:30 Hep B Core IgM Ab Positive (Negative) H 01/29/17 05:30 Hepatitis C Antibody <0.1 s/co ratio (0.0-0.9) 01/29/17 05:30 - Physical Exam Vitals and I&O: Vital Signs Temp 97 F 02/02/17 04:00 Pulse 60 02/02/17 08:30 Resp 18 02/02/17 04:00 BP 150/106 02/02/17 08:30 Pulse Ox 96 02/02/17 04:00 Intake & Output 02/01/17 02/02/17 02/02/17 18:59 06:59 18:59 Intake Total 1987.667 Balance 1987. Weight (lbs) 47.174 kg 53.07 kg Intake: Intake, IV Amount 966.667 Sodium Chloride 0.9% 1, 966.667 000 ml @ 50 mls/hr IV . Q20H [facility] Rx#:[id number] Oral 1022 Other: # Voids 3 # Bowel Movements 0 Active Medications: Current Medications Aspirin (Ecotrin) 81 mg PO DAILY [facility] Stop: 03/29/17 08:59 Last Admin: 02/02/17 08:30 Dose: 81 mg Atorvastatin Calcium (Lipitor) 20 mg PO HS [facility] Stop: 03/29/17 20:59 Last Admin: 02/01/17 20:36 Dose: 20 mg Donepezil HCl (Aricept) 10 mg PO DAILY [facility] Stop: 03/29/17 08:59 Last Admin: 02/02/17 08:30 Dose: 10 mg Famotidine (Pepcid) 20 mg PO DAILY [facility] Stop: 03/29/17 08:59 Last Admin: 02/02/17 08:30 Dose: 20 mg Folic Acid (Folate) 1 mg PO DAILY [facility] Stop: 03/29/17 08:59 Last Admin: 02/02/17 08:30 Dose: 1 mg Hydralazine HCl (Apresoline) 50 mg PO TID [facility] Stop: 03/29/17 08:59 Last Admin: 02/02/17 08:25 Dose: 50 mg Sodium Chloride (Nacl 0.9%) 1,000 mls @ 50 mls/hr IV .Q20H [facility] Stop: 03/28/17 22:29 Last Admin: 02/01/17 20:35 Dose: 50 mls/hr Albumin Human (Albuminar 25%) 25 gm in 100 mls @ 50 mls/hr IV PRN PRN PRN Reason: BP Support During HD Lactulose (Cephulac) 30 gm PO Q24H PRN PRN Reason: Constipation Lorazepam (Ativan) 1 mg IVP Q6HR PRN; Protocol PRN Reason: Agitation Stop: 03/28/17 22:21 Losartan Potassium (Cozaar) 100 mg PO DAILY [facility] Stop: 04/01/17 08:59 Last Admin: 02/02/17 08:30 Dose: 100 mg Memantine (Namenda) 5 mg PO BID [facility] Stop: 03/29/17 08:59 Last Admin: 02/02/17 08:30 Dose: 5 mg Miscellaneous (Clinical Monitoring) 1 ea MC DAILY PRN PRN Reason: RENAL Stop: 03/29/17 11:42 Miscellaneous (Vancomycin Iv Per Pharmacy) 1 ea MC PRN PRN PRN Reason: PROTOCOL Stop: 03/31/17 15:22 Miscellaneous (Probiotic Screen) 1 ea MC PRN PRN PRN Reason: PROTOCOL Stop: 04/01/17 15:30 Mupirocin (Bactroban Oint) 1 appl TP BID [facility] Stop: 03/31/17 16:59 Last Admin: 02/02/17 08:32 Dose: 1 appl Nifedipine (Procardia Xl) 30 mg PO DAILY [facility] Stop: 03/29/17 08:59 Last Admin: 02/02/17 08:30 Dose: 30 mg Sucralfate (Carafate) 1 gm PO ACHS [facility] Stop: 03/29/17 07:29 Last Admin: 02/02/17 06:36 Dose: 1 gm Tamsulosin HCl (Flomax) 0.4 mg PO DAILY [facility] Stop: 03/29/17 08:59 Last Admin: 02/02/17 08:25 Dose: 0.4 mg Vitamin B Complex/Vit C/Folic Acid (Vitamin B Complex W/Vitamin C) 1 tab PO DAILY [facility] Stop: 03/29/17 08:59 Last Admin: 02/02/17 08:30 Dose: 1 tab General: Alert, No acute distress HEENT: Atraumatic, PERRLA Neck: Supple, +2 carotid pulse wo bruit Cardiovascular: Regular rate, Normal S1, Normal S2 Lungs: Clear to auscultation Abdomen: Bowel sounds, Soft Extremities: no Clubbing, no Edema Neurological: Sensation intact Skin: no Rash Psych/Mental Status: Mood NL - Procedures Procedures: Procedures Procedure Code Date AV FUSION DIRECT ANY SITE 88208 12/28/16 BYPASS LEFT BRACHIAL ARTERY TO UPPER ARM VEIN, OPEN APPROACH [id number] 12/28/16 INSERT TUNNELED CV CATH 43702 12/28/16 INSERTION OF INFUSION DEV INTO L FEMOR VEIN, PERC APPROACH [id number] 12/28/16 Assessment/Plan - Problem List Patient Problems: All Active Problems AV shunt malfunction (Acute) T82.591A Anemia (Acute) D64.9 ESRD (end stage renal disease) on dialysis (Acute) N18.6, Z99.2 H/O: CVA (cerebrovascular accident) (Acute) Z86.73 HTN (hypertension) (Acute) I10 chonic encephalopathy (Acute) Nutritional Asmnt/Malnutr-PDOC - Dietary Evaluation Malnutrition Findings (Please click <Entered> for more info): Nutritional Asmnt/Malnutrition Start: 01/28/17 10: 29 Text: Status: Active Freq: Document 01/28/17 10:29 INEZ (Rec: 01/28/17 10:40 INEZ [email or web address]) Nutritional Asmnt/Malnutrition Patient General Information Nutritional Screening High Risk Diagnosis PNA, Sepsis, Pancreatitis, AMS , ALOC, ESRD on dialysis Pertinent Medical Hx/Surgical Hx HTN, CVA/TIA, dyslipidemia, ESRD, dementia Subjective Information Pt was confused, not able to talk during the time of visit. Spoke with HOTEL ATTENDANT, pt has teeth, comsumed 50% of breakfast this morning, eating well on cream of wheat but slowly on eggs and pancake. Pt appeared very skinny. Physical exam performed, mild muscle depletion on arms, fat/muscle wasting on shoulder and legs. Last dialysis 01/27 Current Diet Order/ Nutrition Support Renal, low Na Pertinent Medications Folate, Nacl IV, Vitamin B, Vitamin C Pertinent Labs 01/28: Na 133L, K 4.0, Cl 102, BUN 28H, Cr 5.0H, Glu 76, Ca 11.8H 01/27: Alb 3.9 Nutritional Hx/Data Height 1.78 m Height (Calculated Centimeters) 177.8 Current Weight (lbs) 43.182 kg Weight (Calculated Kilograms) 43.2 Weight (Calculated Grams) 86645.0 [place] Body Weight 166 % [place] Body Weight 57 Body Mass Index (BMI) 13.6 Weight Status Underweight GI Symptoms Difficult in: Chewing Food Allergies No Usual diet at home Previous diet at nursing facility per chart: Renal Pureed Skin Integrity/Comment: intact Current %PO Fair (50-74%) Estimated Nutritional Goals BEE in Kcals: Adj wt of IBW Calories/Kcals/Kg 30-35kcal/kg based on adj wt 67kg Kcals Calculated Protein: Adj wt of IBW Protein g/k.5-2.0 Protein Calculated 100-134 Fluid: ml Per MD d/t ESRD Nutritional Problem 2. Problem Problem Increased nutrition needs ( calorie and protein) Etiology increased metabolic demands for healing and recovery Signs/Symptoms: dx of sepsis, ESRD on dialysis , muscle/fast wasting 1. Problem Problem Inadequate oral intake Etiology pt having difficulty on chewing regular diet Signs/Symptoms: PO intake 50% Malnutrition Alert Body Fat Depletion (Non-Severe) Mild Depletion Muscle Mass (Severe) Mod to Severe Depletion Protein-Calorie Malnutrition Severe Is there a minimum of two criteria Yes selected? Query Text:Check all the applicable criteria. A minimum of two criteria are recommended for diagnosis of either severe or non-severe malnutrition. Intervention/Recommendation Recommendations by RD Protein supplementation Comments 1. Recommend diet order change to Renal Pureed. Made aware of RN to correct diet order, called kitchen to serve Renal Pureed diet for lunch. 2. Recommend Novasource Renal BID to increase nutritional intake 3. Monitor diet tolerance, PO intake, labs, wt weekly and skin integrity. 4. F/U as high risk in 2-3 days, 01/30-01/31 Expected Outcomes/Goals Expected Outcomes/Goals 1. PO to tolerate renal pureed diet, PO intake >75% to meet nutritional needs, pt to consume supplements 2. wt to remain stable, change toward to IBW 3. Labs to improve 4. skin to remain intact
--- NOTE | 2017-02-02 10:37 | General Progress Note ---
Subjective - Review of Systems Events since last encounter: awake comfortable, patient is nonverbal Objective - Results Result Diagrams: 02/02/17 04:50 02/02/17 04:50 Recent Labs: Laboratory Last Values WBC 6.3 Th/cmm (4.8-10.8) D 02/02/17 04:50 RBC 3.60 Mil/cmm (4.30-5.70) L 02/02/17 04:50 Hgb 10.3 gm/dL (12-16) L 02/02/17 04:50 Hct 31.8 % (41.0-60) L 02/02/17 04:50 MCV 88.2 fl (80-99) 02/02/17 04:50 MCH 28.5 pg (26.0-30.0) 02/02/17 04:50 MCHC Differential 32.3 pg (28.0-36.0) 02/02/17 04:50 RDW 16.6 % (11.5-20.0) 02/02/17 04:50 Plt Count 299 Th/cmm (150-400) 02/02/17 04:50 MPV 8.3 fl 02/02/17 04:50 Neutrophils % 67.7 % (40.0-80.0) 02/02/17 04:50 Lymphocytes % 21.6 % (20.0-50.0) 02/02/17 04:50 Monocytes % 7.9 % (2.0-10.0) 02/02/17 04:50 Eosinophils % 2.8 % (0.0-5.0) 02/02/17 04:50 Basophils % 0.0 % (0.0-2.0) 02/02/17 04:50 PT 9.0 SECONDS (9.5-11.5) L 01/30/17 12:00 INR 1.00 (0.5-1.4) 01/30/17 12:00 PTT (Actin FS) 24.3 SECONDS (26.0-38.0) L 01/30/17 12:00 Sodium 136 mEq/L (136-145) 02/02/17 04:50 Potassium 3.9 mEq/L (3.5-5.1) 02/02/17 04:50 Chloride 107 mEq/L (98-107) 02/02/17 04:50 Carbon Dioxide 24.3 mEq/L (21.0-31.0) 02/02/17 04:50 Anion Gap 8.6 (7.0-16.0) 02/02/17 04:50 BUN 34 mg/dL (7-25) H 02/02/17 04:50 Creatinine 6.4 mg/dL (0.7-1.3) H* 02/02/17 04:50 Est GFR ( Amer) 11.8 ml/min (>90) 02/02/17 04:50 Est GFR (Non-Af Amer) 9.7 ml/min 02/02/17 04:50 BUN/Creatinine Ratio 5.3 02/02/17 04:50 Glucose 78 mg/dL (70-105) 02/02/17 04:50 POC Glucose 113 MG/DL (70-105) H 01/29/17 13:02 Whole Bld Lactic Acid 1.02 mmol/L (0.60-1.99) 01/31/17 11:20 Calcium 10.1 mg/dL (8.6-10.3) 02/02/17 04:50 Total Bilirubin 0.4 mg/dL (0.3-1.0) 01/27/17 16:41 AST 12 U/L (13-39) L 01/27/17 16:41 ALT 16 U/L (7-52) 01/27/17 16:41 Alkaline Phosphatase 56 U/L (34-104) 01/27/17 16:41 Creatine Kinase 18 U/L (30-223) L 01/27/17 16:41 Troponin I 0.01 ng/mL (0.01-0.05) 01/27/17 16:41 B-Natriuretic Peptide 52.7 pg/mL (5.0-100.0) 01/27/17 16:41 Total Protein 7.3 gm/dL (6.0-8.3) 01/27/17 16:41 Albumin 3.9 gm/dL (4.2-5.5) L 01/27/17 16:41 Globulin 3.4 gm/dL 01/27/17 16:41 Albumin/Globulin Ratio 1.2 (1.0-1.8) 01/27/17 16:41 Triglycerides 87 mg/dL (<150) 01/28/17 04:55 Cholesterol 132 mg/dL (<200) 01/28/17 04:55 LDL Cholesterol Direct 62 mg/dL (75-193) L 01/28/17 04:55 HDL Cholesterol 54 mg/dL (23-92) 01/28/17 04:55 Amylase 117 U/L (29-103) H 01/31/17 09:00 Lipase 128 U/L (11-82) H 01/31/17 09:00 Random Vancomycin 21.6 ug/mL (5.0-40.0) 02/02/17 04:50 Hepatitis A IgM Ab Negative (Negative) 01/29/17 05:30 Hep Bs Antigen Negative (Negative) 01/29/17 05:30 Hep B Core IgM Ab Positive (Negative) H 01/29/17 05:30 Hepatitis C Antibody <0.1 s/co ratio (0.0-0.9) 01/29/17 05:30 - Physical Exam Vitals and I&O: Vital Signs Temp 97 F 02/02/17 04:00 Pulse 60 02/02/17 08:30 Resp 18 02/02/17 04:00 BP 150/106 02/02/17 08:30 Pulse Ox 96 02/02/17 04:00 Intake & Output 02/01/17 02/02/17 02/02/17 18:59 06:59 18:59 Intake Total 1987.667 Balance 1987.667 Weight (lbs) 47.174 kg 53.07 kg Intake: Intake, IV Amount 966.667 Sodium Chloride 0.9% 1, 966.667 000 ml @ 50 mls/hr IV . Q20H [facility] Rx#:[id number] Oral 1022 Other: # Voids 3 # Bowel Movements 0 Active Medications: Current Medications Aspirin (Ecotrin) 81 mg PO DAILY [facility] Stop: 03/29/17 08:59 Last Admin: 02/02/17 08:30 Dose: 81 mg Atorvastatin Calcium (Lipitor) 20 mg PO HS [facility] Stop: 03/29/17 20:59 Last Admin: 02/01/17 20:36 Dose: 20 mg Donepezil HCl (Aricept) 10 mg PO DAILY [facility] Stop: 03/29/17 08:59 Last Admin: 02/02/17 08:30 Dose: 10 mg Famotidine (Pepcid) 20 mg PO DAILY [facility] Stop: 03/29/17 08:59 Last Admin: 02/02/17 08:30 Dose: 20 mg Folic Acid (Folate) 1 mg PO DAILY [facility] Stop: 03/29/17 08:59 Last Admin: 02/02/17 08:30 Dose: 1 mg Hydralazine HCl (Apresoline) 50 mg PO TID [facility] Stop: 03/29/17 08:59 Last Admin: 02/02/17 08:25 Dose: 50 mg Sodium Chloride (Nacl 0.9%) 1,000 mls @ 50 mls/hr IV .Q20H [facility] Stop: 03/28/17 22:29 Last Admin: 02/01/17 20:35 Dose: 50 mls/hr Albumin Human (Albuminar 25%) 25 gm in 100 mls @ 50 mls/hr IV PRN PRN PRN Reason: BP Support During HD Lactulose (Cephulac) 30 gm PO Q24H PRN PRN Reason: Constipation Lorazepam (Ativan) 1 mg IVP Q6HR PRN; Protocol PRN Reason: Agitation Stop: 03/28/17 22:21 Losartan Potassium (Cozaar) 100 mg PO DAILY [facility] Stop: 04/01/17 08:59 Last Admin: 02/02/17 08:30 Dose: 100 mg Memantine (Namenda) 5 mg PO BID [facility] Stop: 03/29/17 08:59 Last Admin: 02/02/17 08:30 Dose: 5 mg Miscellaneous (Clinical Monitoring) 1 ea MC DAILY PRN PRN Reason: RENAL Stop: 03/29/17 11:42 Miscellaneous (Vancomycin Iv Per Pharmacy) 1 ea MC PRN PRN PRN Reason: PROTOCOL Stop: 03/31/17 15:22 Miscellaneous (Probiotic Screen) 1 ea MC PRN PRN PRN Reason: PROTOCOL Stop: 04/01/17 15:30 Mupirocin (Bactroban Oint) 1 appl TP BID [facility] Stop: 03/31/17 16:59 Last Admin: 02/02/17 08:32 Dose: 1 appl Nifedipine (Procardia Xl) 30 mg PO DAILY [facility] Stop: 03/29/17 08:59 Last Admin: 02/02/17 08:30 Dose: 30 mg Sucralfate (Carafate) 1 gm PO ACHS [facility] Stop: 03/29/17 07:29 Last Admin: 02/02/17 06:36 Dose: 1 gm Tamsulosin HCl (Flomax) 0.4 mg PO DAILY [facility] Stop: 03/29/17 08:59 Last Admin: 02/02/17 08:25 Dose: 0.4 mg Vitamin B Complex/Vit C/Folic Acid (Vitamin B Complex W/Vitamin C) 1 tab PO DAILY [facility] Stop: 03/29/17 08:59 Last Admin: 02/02/17 08:30 Dose: 1 tab General: Alert, No acute distress HEENT: Atraumatic, PERRLA Neck: Supple, +2 carotid pulse wo bruit Cardiovascular: Regular rate, Normal S1, Normal S2 Lungs: Clear to auscultation Abdomen: Bowel sounds, Soft Extremities: no Clubbing, no Edema Neurological: Sensation intact Skin: no Rash Psych/Mental Status: Mood NL - Procedures Procedures: Procedures Procedure Code Date AV FUSION DIRECT ANY SITE 85362 12/28/16 BYPASS LEFT BRACHIAL ARTERY TO UPPER ARM VEIN, OPEN APPROACH [id number] 12/28/16 INSERT TUNNELED CV CATH [id number] 12/28/16 INSERTION OF INFUSION DEV INTO L FEMOR VEIN, PERC APPROACH [id number] 12/28/16 Assessment/Plan - Problem List Patient Problems: All Active Problems AV shunt malfunction (Acute) T82.591A Anemia (Acute) D64.9 ESRD (end stage renal disease) on dialysis (Acute) N18.6, Z99.2 H/O: CVA (cerebrovascular accident) (Acute) Z86.73 HTN (hypertension) (Acute) I10 chonic encephalopathy (Acute) - Plan Plan: as per order sheet Nutritional Asmnt/Malnutr-PDOC - Dietary Evaluation Malnutrition Findings (Please click <Entered> for more info): Nutritional Asmnt/Malnutrition Start: 01/28/17 10: 29 Text: Status: Active Freq: Document 01/28/17 10:29 INEZ (Rec: 01/28/17 10:40 INEZ [email or web address]) Nutritional Asmnt/Malnutrition Patient General Information Nutritional Screening High Risk Diagnosis PNA, Sepsis, Pancreatitis, AMS , ALOC, ESRD on dialysis Pertinent Medical Hx/Surgical Hx HTN, CVA/TIA, dyslipidemia, ESRD, dementia Subjective Information Pt was confused, not able to talk during the time of visit. Spoke with DIRECTOR OF COLLECTIONS AND ARCHIVES, pt has teeth, comsumed 50% of breakfast this morning, eating well on cream of wheat but slowly on eggs and pancake. Pt appeared very skinny. Physical exam performed, mild muscle depletion on arms, fat/muscle wasting on shoulder and legs. Last dialysis 01/27 Current Diet Order/ Nutrition Support Renal, low Na Pertinent Medications Folate, Nacl IV, Vitamin B, Vitamin C Pertinent Labs 01/28: Na 133L, K 4.0, Cl 102, BUN 28H, Cr 5.0H, Glu 76, Ca 11.8H 01/27: Alb 3.9 Nutritional Hx/Data Height 1.78 m Height (Calculated Centimeters) 177.8 Current Weight (lbs) 43.182 kg Weight (Calculated Kilograms) 43.2 Weight (Calculated Grams) 53474.0 [place] Body Weight 166 % [place] Body Weight 57 Body Mass Index (BMI) 13.6 Weight Status Underweight GI Symptoms Difficult in: Chewing Food Allergies No Usual diet at home Previous diet at nursing facility per chart: Renal Pureed Skin Integrity/Comment: intact Current %PO Fair (50-74%) Estimated Nutritional Goals BEE in Kcals: Adj wt of IBW Calories/Kcals/Kg 30-35kcal/kg based on adj wt 67kg Kcals Calculated Protein: Adj wt of IBW Protein g/k.5-2.0 Protein Calculated 100-134 Fluid: ml Per MD d/t ESRD Nutritional Problem 2. Problem Problem Increased nutrition needs ( calorie and protein) Etiology increased metabolic demands for healing and recovery Signs/Symptoms: dx of sepsis, ESRD on dialysis , muscle/fast wasting 1. Problem Problem Inadequate oral intake Etiology pt having difficulty on chewing regular diet Signs/Symptoms: PO intake 50% Malnutrition Alert Body Fat Depletion (Non-Severe) Mild Depletion Muscle Mass (Severe) Mod to Severe Depletion Protein-Calorie Malnutrition Severe Is there a minimum of two criteria Yes selected? Query Text:Check all the applicable criteria. A minimum of two criteria are recommended for diagnosis of either severe or non-severe malnutrition. Intervention/Recommendation Recommendations by RD Protein supplementation Comments 1. Recommend diet order change to Renal Pureed. Made aware of RN to correct diet order, called kitchen to serve Renal Pureed diet for lunch. 2. Recommend Novasource Renal BID to increase nutritional intake 3. Monitor diet tolerance, PO intake, labs, wt weekly and skin integrity. 4. F/U as high risk in 2-3 days, 01/30-01/31 Expected Outcomes/Goals Expected Outcomes/Goals 1. PO to tolerate renal pureed diet, PO intake >75% to meet nutritional needs, pt to consume supplements 2. wt to remain stable, change toward to IBW 3. Labs to improve 4. skin to remain intact
--- NOTE | 2017-02-02 14:04 | General Progress Note ---
Subjective - Review of Systems Service Date: 02/02/17 Subjective: awake, comfortable, nonverbal Objective - Results Result Diagrams: 02/02/17 04:50 02/02/17 04:50 Recent Labs: Laboratory Last Values WBC 6.3 Th/cmm (4.8-10.8) D 02/02/17 04:50 RBC 3.60 Mil/cmm (4.30-5.70) L 02/02/17 04:50 Hgb 10.3 gm/dL (12-16) L 02/02/17 04:50 Hct 31.8 % (41.0-60) L 02/02/17 04:50 MCV 88.2 fl (80-99) 02/02/17 04:50 MCH 28.5 pg (26.0-30.0) 02/02/17 04:50 MCHC Differential 32.3 pg (28.0-36.0) 02/02/17 04:50 RDW 16.6 % (11.5-20.0) 02/02/17 04:50 Plt Count 299 Th/cmm (150-400) 02/02/17 04:50 MPV 8.3 fl 02/02/17 04:50 Neutrophils % 67.7 % (40.0-80.0) 02/02/17 04:50 Lymphocytes % 21.6 % (20.0-50.0) 02/02/17 04:50 Monocytes % 7.9 % (2.0-10.0) 02/02/17 04:50 Eosinophils % 2.8 % (0.0-5.0) 02/02/17 04:50 Basophils % 0.0 % (0.0-2.0) 02/02/17 04:50 PT 9.0 SECONDS (9.5-11.5) L 01/30/17 12:00 INR 1.00 (0.5-1.4) 01/30/17 12:00 PTT (Actin FS) 24.3 SECONDS (26.0-38.0) L 01/30/17 12:00 Sodium 136 mEq/L (136-145) 02/02/17 04:50 Potassium 3.9 mEq/L (3.5-5.1) 02/02/17 04:50 Chloride 107 mEq/L (98-107) 02/02/17 04:50 Carbon Dioxide 24.3 mEq/L (21.0-31.0) 02/02/17 04:50 Anion Gap 8.6 (7.0-16.0) 02/02/17 04:50 BUN 34 mg/dL (7-25) H 02/02/17 04:50 Creatinine 6.4 mg/dL (0.7-1.3) H* 02/02/17 04:50 Est GFR ( Amer) 11.8 ml/min (>90) 02/02/17 04:50 Est GFR (Non-Af Amer) 9.7 ml/min 02/02/17 04:50 BUN/Creatinine Ratio 5.3 02/02/17 04:50 Glucose 78 mg/dL (70-105) 02/02/17 04:50 POC Glucose 113 MG/DL (70-105) H 01/29/17 13:02 Whole Bld Lactic Acid 1.02 mmol/L (0.60-1.99) 01/31/17 11:20 Calcium 10.1 mg/dL (8.6-10.3) 02/02/17 04:50 Total Bilirubin 0.4 mg/dL (0.3-1.0) 01/27/17 16:41 AST 12 U/L (13-39) L 01/27/17 16:41 ALT 16 U/L (7-52) 01/27/17 16:41 Alkaline Phosphatase 56 U/L (34-104) 01/27/17 16:41 Creatine Kinase 18 U/L (30-223) L 01/27/17 16:41 Troponin I 0.01 ng/mL (0.01-0.05) 01/27/17 16:41 B-Natriuretic Peptide 52.7 pg/mL (5.0-100.0) 01/27/17 16:41 Total Protein 7.3 gm/dL (6.0-8.3) 01/27/17 16:41 Albumin 3.9 gm/dL (4.2-5.5) L 01/27/17 16:41 Globulin 3.4 gm/dL 01/27/17 16:41 Albumin/Globulin Ratio 1.2 (1.0-1.8) 01/27/17 16:41 Triglycerides 87 mg/dL (<150) 01/28/17 04:55 Cholesterol 132 mg/dL (<200) 01/28/17 04:55 LDL Cholesterol Direct 62 mg/dL (75-193) L 01/28/17 04:55 HDL Cholesterol 54 mg/dL (23-92) 01/28/17 04:55 Amylase 117 U/L (29-103) H 01/31/17 09:00 Lipase 128 U/L (11-82) H 01/31/17 09:00 Random Vancomycin 21.6 ug/mL (5.0-40.0) 02/02/17 04:50 Hepatitis A IgM Ab Negative (Negative) 01/29/17 05:30 Hep Bs Antigen Negative (Negative) 01/29/17 05:30 Hep B Core IgM Ab Positive (Negative) H 01/29/17 05:30 Hepatitis C Antibody <0.1 s/co ratio (0.0-0.9) 01/29/17 05:30 - Physical Exam Vitals and I&O: Vital Signs Temp 96.8 F 02/02/17 08:00 Pulse 60 02/02/17 08:30 Resp 16 02/02/17 08:00 BP 150/106 02/02/17 08:30 Pulse Ox 100 02/02/17 08:00 Intake & Output 02/01/17 02/02/17 02/02/17 18:59 06:59 18:59 Intake Total 1987.667 Balance 1987.667 Weight (lbs) 47.174 kg 53.07 kg Intake: Intake, IV Amount 966.667 Sodium Chloride 0.9% 1, 966.667 000 ml @ 50 mls/hr IV . Q20H [facility] Rx#:[id number] Oral 1022 Other: # Voids 3 # Bowel Movements 0 Active Medications: Current Medications Aspirin (Ecotrin) 81 mg PO DAILY [facility] Stop: 03/29/17 08:59 Last Admin: 02/02/17 08:30 Dose: 81 mg Atorvastatin Calcium (Lipitor) 20 mg PO HS [facility] Stop: 03/29/17 20:59 Last Admin: 02/01/17 20:36 Dose: 20 mg Donepezil HCl (Aricept) 10 mg PO DAILY [facility] Stop: 03/29/17 08:59 Last Admin: 02/02/17 08:30 Dose: 10 mg Famotidine (Pepcid) 20 mg PO DAILY [facility] Stop: 03/29/17 08:59 Last Admin: 02/02/17 08:30 Dose: 20 mg Folic Acid (Folate) 1 mg PO DAILY [facility] Stop: 03/29/17 08:59 Last Admin: 02/02/17 08:30 Dose: 1 mg Hydralazine HCl (Apresoline) 50 mg PO TID [facility] Stop: 03/29/17 08:59 Last Admin: 02/02/17 08:25 Dose: 50 mg Sodium Chloride (Nacl 0.9%) 1,000 mls @ 50 mls/hr IV .Q20H [facility] Stop: 03/28/17 22:29 Last Admin: 02/01/17 20:35 Dose: 50 mls/hr Albumin Human (Albuminar 25%) 25 gm in 100 mls @ 50 mls/hr IV PRN PRN PRN Reason: BP Support During HD Lactulose (Cephulac) 30 gm PO Q24H PRN PRN Reason: Constipation Lorazepam (Ativan) 1 mg IVP Q6HR PRN; Protocol PRN Reason: Agitation Stop: 03/28/17 22:21 Losartan Potassium (Cozaar) 100 mg PO DAILY [facility] Stop: 04/01/17 08:59 Last Admin: 02/02/17 08:30 Dose: 100 mg Memantine (Namenda) 5 mg PO BID [facility] Stop: 03/29/17 08:59 Last Admin: 02/02/17 08:30 Dose: 5 mg Miscellaneous (Clinical Monitoring) 1 ea MC DAILY PRN PRN Reason: RENAL Stop: 03/29/17 11:42 Miscellaneous (Vancomycin Iv Per Pharmacy) 1 ea MC PRN PRN PRN Reason: PROTOCOL Stop: 03/31/17 15:22 Miscellaneous (Probiotic Screen) 1 ea MC PRN PRN PRN Reason: PROTOCOL Stop: 04/01/17 15:30 Mupirocin (Bactroban Oint) 1 appl TP BID [facility] Stop: 03/31/17 16:59 Last Admin: 02/02/17 08:32 Dose: 1 appl Nifedipine (Procardia Xl) 30 mg PO DAILY [facility] Stop: 03/29/17 08:59 Last Admin: 02/02/17 08:30 Dose: 30 mg Sucralfate (Carafate) 1 gm PO ACHS [facility] Stop: 03/29/17 07:29 Last Admin: 02/02/17 12:38 Dose: 1 gm Tamsulosin HCl (Flomax) 0.4 mg PO DAILY [facility] Stop: 03/29/17 08:59 Last Admin: 02/02/17 08:25 Dose: 0.4 mg Vitamin B Complex/Vit C/Folic Acid (Vitamin B Complex W/Vitamin C) 1 tab PO DAILY [facility] Stop: 03/29/17 08:59 Last Admin: 02/02/17 08:30 Dose: 1 tab General: Alert, No acute distress HEENT: Atraumatic, PERRLA Neck: Supple, +2 carotid pulse wo bruit Cardiovascular: Regular rate, Normal S1, Normal S2 Lungs: Clear to auscultation Abdomen: Bowel sounds, Soft Extremities: no Clubbing, no Edema Neurological: Sensation intact Skin: no Rash Psych/Mental Status: Mood NL - Procedures Procedures: Procedures Procedure Code Date AV FUSION DIRECT ANY SITE 34697 12/28/16 BYPASS LEFT BRACHIAL ARTERY TO UPPER ARM VEIN, OPEN APPROACH [id number] 12/28/16 INSERT TUNNELED CV CATH [id number] 12/28/16 INSERTION OF INFUSION DEV INTO L FEMOR VEIN, PERC APPROACH [id number] 12/28/16 Assessment/Plan - Problem List Patient Problems: All Active Problems AV shunt malfunction (Acute) T82.591A Anemia (Acute) D64.9 ESRD (end stage renal disease) on dialysis (Acute) N18.6, Z99.2 H/O: CVA (cerebrovascular accident) (Acute) Z86.73 HTN (hypertension) (Acute) I10 chonic encephalopathy (Acute) - Assessment Assessment: ESRD on HD ALOC possibly 2nd to period of hypotension Ess Htn TIA BPH dyslipidemia Dementia w/o beh disturbance MRSA septicemia - Plan Plan: Lab - Result Diagrams 01/29/17 05:30 01/29/17 05:30 Current Medications Aspirin (Ecotrin) 81 mg PO DAILY [facility] Stop: 03/29/17 08:59 Last Admin: 01/29/17 09:41 Dose: 81 mg Atorvastatin Calcium (Lipitor) 20 mg PO HS [facility] Stop: 03/29/17 20:59 Last Admin: 01/28/17 20:37 Dose: 20 mg Donepezil HCl (Aricept) 10 mg PO DAILY [facility] Stop: 03/29/17 08:59 Last Admin: 01/29/17 09:46 Dose: 10 mg Famotidine (Pepcid) 20 mg PO DAILY [facility] Stop: 03/29/17 08:59 Last Admin: 01/29/17 09:40 Dose: 20 mg Folic Acid (Folate) 1 mg PO DAILY [facility] Stop: 03/29/17 08:59 Last Admin: 01/29/17 09:45 Dose: 1 mg Hydralazine HCl (Apresoline) 50 mg PO TID [facility] Stop: 03/29/17 08:59 Last Admin: 01/29/17 11:55 Dose: 50 mg Sodium Chloride (Nacl 0.9%) 1,000 mls @ 50 mls/hr IV .Q20H [facility] Stop: 03/28/17 22:29 Last Infusion: 01/29/17 06:06 Dose: 50 mls/hr Albumin Human (Albuminar 25%) 25 gm in 100 mls @ 50 mls/hr IV PRN PRN PRN Reason: BP Support During HD Lactulose (Cephulac) 30 gm PO Q24H PRN PRN Reason: Constipation Lorazepam (Ativan) 1 mg IVP Q6HR PRN; Protocol PRN Reason: Agitation Stop: 03/28/17 22:21 Losartan Potassium (Cozaar) 50 mg PO DAILY [facility] Stop: 03/29/17 08:59 Last Admin: 01/29/17 11:58 Dose: 50 mg Memantine (Namenda) 5 mg PO BID [facility] Stop: 03/29/17 08:59 Last Admin: 01/29/17 09:46 Dose: 5 mg Miscellaneous (Clinical Monitoring) 1 ea MC DAILY PRN PRN Reason: RENAL Stop: 03/29/17 11:42 Nifedipine (Procardia Xl) 30 mg PO DAILY [facility] Stop: 03/29/17 08:59 Last Admin: 01/29/17 11:56 Dose: 30 mg Sucralfate (Carafate) 1 gm PO ACHS [facility] Stop: 03/29/17 07:29 Last Admin: 01/29/17 07:02 Dose: 1 gm Tamsulosin HCl (Flomax) 0.4 mg PO DAILY [facility] Stop: 03/29/17 08:59 Last Admin: 01/29/17 09:46 Dose: 0.4 mg Vitamin B Complex/Vit C/Folic Acid (Vitamin B Complex W/Vitamin C) 1 tab PO DAILY [facility] Stop: 03/29/17 08:59 Last Admin: 01/29/17 11:56 Dose: 1 tab Lab - Result Diagrams 02/02/17 04:50 02/02/17 04:50 pt. was dialyzed yesterday & tolerated it well pt. more alert, does not talk BC grew MRSA will change Lorne cath to perma cath Nutritional Asmnt/Malnutr-PDOC - Dietary Evaluation Malnutrition Findings (Please click <Entered> for more info): Nutritional Asmnt/Malnutrition Start: 01/28/17 10: 29 Text: Status: Active Freq: Document 01/28/17 10:29 INEZ (Rec: 01/28/17 10:40 INEZ [email or web address]) Nutritional Asmnt/Malnutrition Patient General Information Nutritional Screening High Risk Diagnosis PNA, Sepsis, Pancreatitis, AMS , ALOC, ESRD on dialysis Pertinent Medical Hx/Surgical Hx HTN, CVA/TIA, dyslipidemia, ESRD, dementia Subjective Information Pt was confused, not able to talk during the time of visit. Spoke with [employer], pt has teeth, comsumed 50% of breakfast this morning, eating well on cream of wheat but slowly on eggs and pancake. Pt appeared very skinny. Physical exam performed, mild muscle depletion on arms, fat/muscle wasting on shoulder and legs. Last dialysis 01/27 Current Diet Order/ Nutrition Support Renal, low Na Pertinent Medications Folate, Nacl IV, Vitamin B, Vitamin C Pertinent Labs 01/28: Na 133L, K 4.0, Cl 102, BUN 28H, Cr 5.0H, Glu 76, Ca 11.8H 01/27: Alb 3.9 Nutritional Hx/Data Height 1.78 m Height (Calculated Centimeters) 177.8 Current Weight (lbs) 43.182 kg Weight (Calculated Kilograms) 43.2 Weight (Calculated Grams) 24489.0 [place] Body Weight 166 % [place] Body Weight 57 Body Mass Index (BMI) 13.6 Weight Status Underweight GI Symptoms Difficult in: Chewing Food Allergies No Usual diet at home Previous diet at nursing facility per chart: Renal Pureed Skin Integrity/Comment: intact Current %PO Fair (50-74%) Estimated Nutritional Goals BEE in Kcals: Adj wt of IBW Calories/Kcals/Kg 30-35kcal/kg based on adj wt 67kg Kcals Calculated Protein: Adj wt of IBW Protein g/k.5-2.0 Protein Calculated 100-134 Fluid: ml Per MD d/t ESRD Nutritional Problem 2. Problem Problem Increased nutrition needs ( calorie and protein) Etiology increased metabolic demands for healing and recovery Signs/Symptoms: dx of sepsis, ESRD on dialysis , muscle/fast wasting 1. Problem Problem Inadequate oral intake Etiology pt having difficulty on chewing regular diet Signs/Symptoms: PO intake 50% Malnutrition Alert Body Fat Depletion (Non-Severe) Mild Depletion Muscle Mass (Severe) Mod to Severe Depletion Protein-Calorie Malnutrition Severe Is there a minimum of two criteria Yes selected? Query Text:Check all the applicable criteria. A minimum of two criteria are recommended for diagnosis of either severe or non-severe malnutrition. Intervention/Recommendation Recommendations by RD Protein supplementation Comments 1. Recommend diet order change to Renal Pureed. Made aware of RN to correct diet order, called kitchen to serve Renal Pureed diet for lunch. 2. Recommend Novasource Renal BID to increase nutritional intake 3. Monitor diet tolerance, PO intake, labs, wt weekly and skin integrity. 4. F/U as high risk in 2-3 days, 01/30-01/31 Expected Outcomes/Goals Expected Outcomes/Goals 1. PO to tolerate renal pureed diet, PO intake >75% to meet nutritional needs, pt to consume supplements 2. wt to remain stable, change toward to IBW 3. Labs to improve 4. skin to remain intact
[2017-02-02] MEDS: Sodium Chloride 0.9% 1,000 ML IV SCH (20:54)
[2017-02-02] MEDS: Atorvastatin Calcium 10 MG TAB PO SCH (20:56)
[2017-02-03 05:08] LABS: % BASOPHILS 0.8 % (0.0-2.0); % EOSINOPHILS 2.9 % (0.0-5.0); % LYMPHOCYTES 22.9 % (20.0-50.0); % MONOCYTES 7.4 % (2.0-10.0); HEMATOCRIT 33.5 % (41.0-60); HEMOGLOBIN 10.9 gm/dL (12-16); MEAN CELL VOLUME 88.4 fl (80-99); MEAN CORPUSCULAR HEMOGLOBIN 28.7 pg (26.0-30.0); MEAN CORPUSCULAR HGB CONC 32.4 pg (28.0-36.0); MEAN PLATELET VOLUME 8.5 fl; NEUTROPHILE ABSOLUTE 4.1 Th/cmm (1.8-8.0); PLATELET COUNT 342 Th/cmm (150-400); RED BLOOD COUNT 3.78 Mil/cmm (4.30-5.70); RED CELL DISTRIBUTION WIDTH 16.6 % (11.5-20.0); WHITE BLOOD COUNT 6.3 Th/cmm (4.8-10.8)
[2017-02-03 05:24] LABS: ANION GAP 11.4 (7.0-16.0); BUN/CREATININE RATIO 5.6; CALCIUM SERUM 10.2 mg/dL (8.6-10.3); CARBON DIOXIDE 19.4 mEq/L (21.0-31.0); POTASSIUM SERUM 3.8 mEq/L (3.5-5.1)
--- NOTE | 2017-02-03 07:39 | Diagnostic Imaging Report ---
Bilateral upper extremity Doppler venous ultrasound exam Sonographic sector images were obtained through the venous system of the upper arms and within the subclavian and internal jugular vein regions. Evaluation of the right arm was limited due to overlying bandages. The exam of the right arm demonstrates patency of the right internal jugular and right subclavian veins. Images of the right axillary vein and distal veins not provided. The right internal jugular vein exhibits a diameter of 1.2 cm. The right subclavian vein measures 0.7 cm area no intraluminal abnormality/thrombus identified. The exam of the left internal jugular vein demonstrates intraluminal echogenic density consistent with thrombus. Associated absence of compressibility. There is is a relatively small diameter of the left internal jugular vein (0.3 cm). There is patency of the left subclavian vein. This measures 0.5 cm in diameter. IMPRESSION: 1. Limited exam of the right arm due to overlying bandages 2. Findings consistent with intraluminal thrombus in the region of the left internal jugular vein along with a diminished diameter as noted above. 3. Patency of the right and left subclavian veins and right internal jugular vein with measurements as noted above.
[2017-02-03] MEDS: Vitamin B Complex w/Vitamin C Tab PO SCH (11:23)
[2017-02-03] MEDS: NIFEdipine 30 mg ER Tab PO SCH (11:23)
[2017-02-03] MEDS ORDERED: Midazolam 1mg/ml 2 ml vial IV ONE (11:24)
[2017-02-03] MEDS ORDERED: fentaNYL Citrate 100 mcg/2mL Vial ONE (11:37)
[2017-02-03] MEDS ORDERED: Thrombin, Bovine 5,000 IU Vial TP ONE (12:57)
[2017-02-03] MEDS ORDERED: [UNRECOGNIZED DRUG - OTHER] TP ONE (13:02)
[2017-02-03] MEDS ORDERED: Lactated Ringer 1,000 ML IV SCH (13:15)
[2017-02-03] MEDS ORDERED: Meperidine 25 mg/mL 1mL Syr IVP PRN (13:15)
--- NOTE | 2017-02-03 13:50 | General Progress Note ---
Subjective - Review of Systems Service Date: 02/03/17 Subjective: sedated, comfortable, nonverbal Objective - Results Result Diagrams: 02/03/17 04:40 02/03/17 04:40 Recent Labs: Laboratory Last Values WBC 6.3 Th/cmm (4.8-10.8) 02/03/17 04:40 RBC 3.78 Mil/cmm (4.30-5.70) L 02/03/17 04:40 Hgb 10.9 gm/dL (12-16) L 02/03/17 04:40 Hct 33.5 % (41.0-60) L 02/03/17 04:40 MCV 88.4 fl (80-99) 02/03/17 04:40 MCH 28.7 pg (26.0-30.0) 02/03/17 04:40 MCHC Differential 32.4 pg (28.0-36.0) 02/03/17 04:40 RDW 16.6 % (11.5-20.0) 02/03/17 04:40 Plt Count 342 Th/cmm (150-400) 02/03/17 04:40 MPV 8.5 fl 02/03/17 04:40 Neutrophils % 66.0 % (40.0-80.0) 02/03/17 04:40 Lymphocytes % 22.9 % (20.0-50.0) 02/03/17 04:40 Monocytes % 7.4 % (2.0-10.0) 02/03/17 04:40 Eosinophils % 2.9 % (0.0-5.0) 02/03/17 04:40 Basophils % 0.8 % (0.0-2.0) 02/03/17 04:40 PT 9.0 SECONDS (9.5-11.5) L 01/30/17 12:00 INR 1.00 (0.5-1.4) 01/30/17 12:00 PTT (Actin FS) 24.3 SECONDS (26.0-38.0) L 01/30/17 12:00 Sodium 135 mEq/L (136-145) L 02/03/17 04:40 Potassium 3.8 mEq/L (3.5-5.1) 02/03/17 04:40 Chloride 108 mEq/L (98-107) H 02/03/17 04:40 Carbon Dioxide 19.4 mEq/L (21.0-31.0) L 02/03/17 04:40 Anion Gap 11.4 (7.0-16.0) 02/03/17 04:40 BUN 39 mg/dL (7-25) H 02/03/17 04:40 Creatinine 7.0 mg/dL (0.7-1.3) H* 02/03/17 04:40 Est GFR ( Amer) 10.6 ml/min (>90) 02/03/17 04:40 Est GFR (Non-Af Amer) 8.8 ml/min 02/03/17 04:40 BUN/Creatinine Ratio 5.6 02/03/17 04:40 Glucose 78 mg/dL (70-105) 02/03/17 04:40 POC Glucose 55 MG/DL (70 - 105) L 02/03/17 10:43 Whole Bld Lactic Acid 1.02 mmol/L (0.60-1.99) 01/31/17 11:20 Calcium 10.2 mg/dL (8.6-10.3) 02/03/17 04:40 Total Bilirubin 0.4 mg/dL (0.3-1.0) 01/27/17 16:41 AST 12 U/L (13-39) L 01/27/17 16:41 ALT 16 U/L (7-52) 01/27/17 16:41 Alkaline Phosphatase 56 U/L (34-104) 01/27/17 16:41 Creatine Kinase 18 U/L (30-223) L 01/27/17 16:41 Troponin I 0.01 ng/mL (0.01-0.05) 01/27/17 16:41 B-Natriuretic Peptide 52.7 pg/mL (5.0-100.0) 01/27/17 16:41 Total Protein 7.3 gm/dL (6.0-8.3) 01/27/17 16:41 Albumin 3.9 gm/dL (4.2-5.5) L 01/27/17 16:41 Globulin 3.4 gm/dL 01/27/17 16:41 Albumin/Globulin Ratio 1.2 (1.0-1.8) 01/27/17 16:41 Triglycerides 87 mg/dL (<150) 01/28/17 04:55 Cholesterol 132 mg/dL (<200) 01/28/17 04:55 LDL Cholesterol Direct 62 mg/dL (75-193) L 01/28/17 04:55 HDL Cholesterol 54 mg/dL (23-92) 01/28/17 04:55 Amylase 117 U/L (29-103) H 01/31/17 09:00 Lipase 128 U/L (11-82) H 01/31/17 09:00 Random Vancomycin 21.6 ug/mL (5.0-40.0) 02/02/17 04:50 Hepatitis A IgM Ab Negative (Negative) 01/29/17 05:30 Hep Bs Antigen Negative (Negative) 01/29/17 05:30 Hep B Core IgM Ab Positive (Negative) H 01/29/17 05:30 Hepatitis C Antibody <0.1 s/co ratio (0.0-0.9) 01/29/17 05:30 - Physical Exam Vitals and I&O: Vital Signs Temp 97.3 F 02/03/17 08:00 Pulse 96 02/03/17 10:47 Resp 16 02/03/17 08:00 BP 194/109 02/03/17 10:46 Pulse Ox 99 02/03/17 08:00 Intake & Output 02/02/17 02/03/17 02/03/17 18:59 06:59 18:59 Intake Total 2502 100 Balance 2502 100 Weight (lbs) 53.07 kg 54.431 kg Intake: Intake, IV Amount 1000 Sodium Chloride 0.9% 1, 1000 000 ml @ 50 mls/hr IV . Q20H [facility] Rx#:[id number] Oral 1502 100 Other: # Voids 3 2 # Bowel Movements 1 0 Active Medications: Current Medications Aspirin (Ecotrin) 81 mg PO DAILY [facility] Stop: 03/29/17 08:59 Last Admin: 02/03/17 11:22 Dose: Not Given Atorvastatin Calcium (Lipitor) 20 mg PO HS [facility] Stop: 03/29/17 20:59 Last Admin: 02/02/17 20:56 Dose: 20 mg Donepezil HCl (Aricept) 10 mg PO DAILY [facility]KA Stop: 03/29/17 08:59 Last Admin: 02/03/17 11:22 Dose: Not Given Famotidine (Pepcid) 20 mg PO DAILY [facility] Stop: 03/29/17 08:59 Last Admin: 02/03/17 11:22 Dose: Not Given Folic Acid (Folate) 1 mg PO DAILY [facility] Stop: 03/29/17 08:59 Last Admin: 02/03/17 11:22 Dose: Not Given Hydralazine HCl (Apresoline) 50 mg PO TID [facility] Stop: 03/29/17 08:59 Last Admin: 02/03/17 10:46 Dose: 50 mg Sodium Chloride (Nacl 0.9%) 1,000 mls @ 50 mls/hr IV .Q20H [facility] Stop: 03/28/17 22:29 Last Admin: 02/02/17 20:54 Dose: 50 mls/hr Albumin Human (Albuminar 25%) 25 gm in 100 mls @ 50 mls/hr IV PRN PRN PRN Reason: BP Support During HD Vancomycin HCl 1 gm/ Sodium (Chloride) 250 mls @ 165 mls/hr IV ONCE ONE Stop: 02/03/17 17:30 Lactated Ringer's (Lactated Ringer) 1,000 mls @ 0 mls/hr IV .Q0M [facility]KA PRN Reason: TKO Stop: 02/03/17 17:00 Lactulose (Cephulac) 30 gm PO Q24H PRN PRN Reason: Constipation Lorazepam (Ativan) 1 mg IVP Q6HR PRN; Protocol PRN Reason: Agitation Stop: 03/28/17 22:21 Losartan Potassium (Cozaar) 100 mg PO DAILY [facility] Stop: 04/01/17 08:59 Last Admin: 02/03/17 11:22 Dose: Not Given Memantine (Namenda) 5 mg PO BID [facility] Stop: 03/29/17 08:59 Last Admin: 02/03/17 11:23 Dose: Not Given Meperidine HCl (Demerol) 12.5 mg IVP UD PRN PRN Reason: POST-OP PAIN Stop: 02/03/17 17:00 Miscellaneous (Clinical Monitoring) 1 ea MC DAILY PRN PRN Reason: RENAL Stop: 03/29/17 11:42 Miscellaneous (Vancomycin Iv Per Pharmacy) 1 ea MC PRN PRN PRN Reason: PROTOCOL Stop: 03/31/17 15:22 Miscellaneous (Probiotic Screen) 1 ea MC PRN PRN PRN Reason: PROTOCOL Stop: 04/01/17 15:30 Mupirocin (Bactroban Oint) 1 appl TP BID [facility] Stop: 03/31/17 16:59 Last Admin: 02/03/17 11:23 Dose: Not Given Nifedipine (Procardia Xl) 30 mg PO DAILY [facility] Stop: 03/29/17 08:59 Last Admin: 02/03/17 11:23 Dose: Not Given Ondansetron HCl (Zofran) 4 mg IV UD PRN PRN Reason: Nausea / Vomiting Stop: 02/03/17 17:00 Sucralfate (Carafate) 1 gm PO ACHS [facility] Stop: 03/29/17 07:29 Last Admin: 02/03/17 11:42 Dose: Not Given Tamsulosin HCl (Flomax) 0.4 mg PO DAILY [facility] Stop: 03/29/17 08:59 Last Admin: 02/03/17 11:23 Dose: Not Given Vitamin B Complex/Vit C/Folic Acid (Vitamin B Complex W/Vitamin C) 1 tab PO DAILY [facility] Stop: 03/29/17 08:59 Last Admin: 02/03/17 11:23 Dose: Not Given General: Alert, No acute distress HEENT: Atraumatic, PERRLA Neck: Supple, +2 carotid pulse wo bruit Cardiovascular: Regular rate, Normal S1, Normal S2 Lungs: Clear to auscultation Abdomen: Bowel sounds, Soft Extremities: no Clubbing, no Edema Neurological: Sensation intact Skin: no Rash Psych/Mental Status: Mood NL - Procedures Procedures: Procedures Procedure Code Date AV FUSION DIRECT ANY SITE 81563 12/28/16 BYPASS LEFT BRACHIAL ARTERY TO UPPER ARM VEIN, OPEN APPROACH [id number] 12/28/16 INSERT TUNNELED CV CATH 71256 12/28/16 INSERTION OF INFUSION DEV INTO L FEMOR VEIN, PERC APPROACH [id number] 12/28/16 Assessment/Plan - Problem List Patient Problems: All Active Problems AV shunt malfunction (Acute) T82.591A Anemia (Acute) D64.9 ESRD (end stage renal disease) on dialysis (Acute) N18.6, Z99.2 H/O: CVA (cerebrovascular accident) (Acute) Z86.73 HTN (hypertension) (Acute) I10 chonic encephalopathy (Acute) - Assessment Assessment: ESRD on HD ALOC possibly 2nd to period of hypotension Ess Htn TIA BPH dyslipidemia Dementia w/o beh disturbance MRSA septicemia S/P right AVG, right perma cath - Plan Plan: Lab - Result Diagrams 01/29/17 05:30 01/29/17 05:30 Current Medications Aspirin (Ecotrin) 81 mg PO DAILY [facility] Stop: 03/29/17 08:59 Last Admin: 01/29/17 09:41 Dose: 81 mg Atorvastatin Calcium (Lipitor) 20 mg PO HS [facility] Stop: 03/29/17 20:59 Last Admin: 01/28/17 20:37 Dose: 20 mg Donepezil HCl (Aricept) 10 mg PO DAILY [facility] Stop: 03/29/17 08:59 Last Admin: 01/29/17 09:46 Dose: 10 mg Famotidine (Pepcid) 20 mg PO DAILY [facility] Stop: 03/29/17 08:59 Last Admin: 01/29/17 09:40 Dose: 20 mg Folic Acid (Folate) 1 mg PO DAILY [facility] Stop: 03/29/17 08:59 Last Admin: 01/29/17 09:45 Dose: 1 mg Hydralazine HCl (Apresoline) 50 mg PO TID [facility] Stop: 03/29/17 08:59 Last Admin: 01/29/17 11:55 Dose: 50 mg Sodium Chloride (Nacl 0.9%) 1,000 mls @ 50 mls/hr IV .Q20H [facility] Stop: 03/28/17 22:29 Last Infusion: 01/29/17 06:06 Dose: 50 mls/hr Albumin Human (Albuminar 25%) 25 gm in 100 mls @ 50 mls/hr IV PRN PRN PRN Reason: BP Support During HD Lactulose (Cephulac) 30 gm PO Q24H PRN PRN Reason: Constipation Lorazepam (Ativan) 1 mg IVP Q6HR PRN; Protocol PRN Reason: Agitation Stop: 03/28/17 22:21 Losartan Potassium (Cozaar) 50 mg PO DAILY [facility] Stop: 03/29/17 08:59 Last Admin: 01/29/17 11:58 Dose: 50 mg Memantine (Namenda) 5 mg PO BID [facility] Stop: 03/29/17 08:59 Last Admin: 01/29/17 09:46 Dose: 5 mg Miscellaneous (Clinical Monitoring) 1 ea MC DAILY PRN PRN Reason: RENAL Stop: 03/29/17 11:42 Nifedipine (Procardia Xl) 30 mg PO DAILY [facility] Stop: 03/29/17 08:59 Last Admin: 01/29/17 11:56 Dose: 30 mg Sucralfate (Carafate) 1 gm PO ACHS [facility] Stop: 03/29/17 07:29 Last Admin: 01/29/17 07:02 Dose: 1 gm Tamsulosin HCl (Flomax) 0.4 mg PO DAILY [facility] Stop: 03/29/17 08:59 Last Admin: 01/29/17 09:46 Dose: 0.4 mg Vitamin B Complex/Vit C/Folic Acid (Vitamin B Complex W/Vitamin C) 1 tab PO DAILY [facility] Stop: 03/29/17 08:59 Last Admin: 01/29/17 11:56 Dose: 1 tab Lab - Result Diagrams 02/03/17 04:40 02/03/17 04:40 schedule for dialysis today pt. more alert, does not talk BC grew MRSA, repeat BC x 2 no growth will change Lorne cath to perma cath Nutritional Asmnt/Malnutr-PDOC - Dietary Evaluation Malnutrition Findings (Please click <Entered> for more info): Nutritional Asmnt/Malnutrition Start: 01/28/17 10: 29 Text: Status: Active Freq: Document 01/28/17 10:29 LCHENG (Rec: 01/28/17 10:40 LCHENG [email or web address]) Nutritional Asmnt/Malnutrition Patient General Information Nutritional Screening High Risk Diagnosis PNA, Sepsis, Pancreatitis, AMS , ALOC, ESRD on dialysis Pertinent Medical Hx/Surgical Hx HTN, CVA/TIA, dyslipidemia, ESRD, dementia Subjective Information Pt was confused, not able to talk during the time of visit. 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 Pt appeared very skinny. Physical exam performed, mild muscle depletion on arms, fat/muscle wasting on shoulder and legs. Last dialysis 01/27 Current Diet Order/ Nutrition Support Renal, low Na Pertinent Medications Folate, Nacl IV, Vitamin B, Vitamin C Pertinent Labs 01/28: Na 133L, K 4.0, Cl 102, BUN 28H, Cr 5.0H, Glu 76, Ca 11.8H 01/27: Alb 3.9 Nutritional Hx/Data Height 1.78 m Height (Calculated Centimeters) 177.8 Current Weight (lbs) 43.182 kg Weight (Calculated Kilograms) 43.2 Weight (Calculated Grams) 13960.0 [place] Body Weight 166 % [place] Body Weight 57 Body Mass Index (BMI) 13.6 Weight Status Underweight GI Symptoms Difficult in: Chewing Food Allergies No Usual diet at home Previous diet at nursing facility per chart: Renal Pureed Skin Integrity/Comment: intact Current %PO Fair (50-74%) Estimated Nutritional Goals BEE in Kcals: Adj wt of IBW Calories/Kcals/Kg 30-35kcal/kg based on adj wt 67kg Kcals Calculated Protein: Adj wt of IBW Protein g/k.5-2.0 Protein Calculated 100-134 Fluid: ml Per MD d/t ESRD Nutritional Problem 2. Problem Problem Increased nutrition needs ( calorie and protein) Etiology increased metabolic demands for healing and recovery Signs/Symptoms: dx of sepsis, ESRD on dialysis , muscle/fast wasting 1. Problem Problem Inadequate oral intake Etiology pt having difficulty on chewing regular diet Signs/Symptoms: PO intake 50% Malnutrition Alert Body Fat Depletion (Non-Severe) Mild Depletion Muscle Mass (Severe) Mod to Severe Depletion Protein-Calorie Malnutrition Severe Is there a minimum of two criteria Yes selected? Query Text:Check all the applicable criteria. A minimum of two criteria are recommended for diagnosis of either severe or non-severe malnutrition. Intervention/Recommendation Recommendations by RD Protein supplementation Comments 1. Recommend diet order change to Renal Pureed. Made aware of RN to correct diet order, called kitchen to serve Renal Pureed diet for lunch. 2. Recommend Novasource Renal BID to increase nutritional intake 3. Monitor diet tolerance, PO intake, labs, wt weekly and skin integrity. 4. F/U as high risk in 2-3 days, 01/30-01/31 Expected Outcomes/Goals Expected Outcomes/Goals 1. PO to tolerate renal pureed diet, PO intake >75% to meet nutritional needs, pt to consume supplements 2. wt to remain stable, change toward to IBW 3. Labs to improve 4. skin to remain intact
--- NOTE | 2017-02-03 18:35 | Operative Report ---
DATE OF SURGERY: 02/03/2017 PREOPERATIVE DIAGNOSES: 1. End-stage renal disease. 2. CVA. 3. Hypertension. 4. Dementia. POSTOPERATIVE DIAGNOSES: 1. End-stage renal disease. 2. CVA. 3. Hypertension. 4. Dementia. OPERATION DONE: 1. Placement of Perm-A-Cath right subclavian vein under ultrasound and fluoroscopy (supervision by Dr. Byrd). 2. Placement of right arm AV shunt (Bovine). ESTIMATED BLOOD LOSS: 50 mL. PROCEDURE: The patient was given IV sedation. The right chest and upper extremity were prepped with Betadine and draped, and 1% lidocaine was used to infiltrate the area identified on ultrasound. Incision was made and a size 18 needle was used to look at the vein. The guidewire was inserted under fluoroscopy and directed into the inferior vena cava. The dilator was placed over the guidewire and then the introducer under fluoroscopy. A 24-cm Perm-A-Cath was then inserted, the tip of which was in the inferior vena cava. This was sutured to the skin with 2-0 nylon. Then 1% lidocaine was used to infiltrate the axilla and a good axillary vein was identified. The brachial artery was then identified in the antecubital fossa. Then 3000 units of heparin was given intravenously. A bovine graft was anastomosed in an end-to-side fashion to the artery utilizing a running suture of 5-0 Prolene. Following satisfactory hemostasis, the clamps were released and the full distended graft was brought out under a tunnel subcutaneously into the axillary area. The vein was tied proximally and occluded distally and a venotomy was made in its anterior wall. The graft was ____ and 5-0 Prolene in continuous fashion was used to complete this anastomosis. Following release of the clamps, there was excellent flow through the shunt. Hemostasis was achieved with the application Gelfoam, silk, and thrombin. The incision was closed with subcuticular suture of 3-0 Vicryl. Sterile dressing was placed over this. The patient tolerated the procedure well. JOB# [id number]
--- NOTE | 2017-02-04 07:44 | Diagnostic Imaging Report ---
CHEST X-RAY: AP view INDICATION: Permacath placement COMPARISON: Chest x-ray 01/27/2017 FINDINGS: Right subclavian permacath has been placed with tip in the SVC. No evidence of pneumothorax. Mild chronic lung changes are noted. Tortuous aorta is noted. Heart size is normal. Old left seventh rib fracture is noted. IMPRESSION: Interval right-sided subclavian permacath placement with tip in SVC No evidence of pneumothorax No focal consolidation identified.
--- NOTE | 2017-02-05 09:58 | Discharge Summary ---
DATE OF DISCHARGE: 01/27/2017 HISTORY AND HOSPITAL COURSE: This patient is a resident of [facility] came to the [facility], was admitted for acute pancreatitis, ALOC. He has history of ESRD on hemodialysis, hyponatremia, pneumonia, hypertension, history of CVA. The patient was treated for all of that. The patient got better and also had some problem with his shunt which was also declotted and dialysis was done and the patient discharged in stable condition on 02/03/2017 with a diagnoses of acute pancreatitis resolving, ESRD on hemodialysis, history of hypertension, history of severe hyperlipidemia was made. The patient was sent to [facility] where I will be following the patient. MEDICATIONS: See the reconciliation sheet. CONDITION AT THE TIME OF DISCHARGE: Stable. JOB# [id number]
== END 2017-02-03 21:05 | DRG 710 ==
LOC: ER 15:36 → TELE 18:30 → MSI 22:00
PROVIDERS: ADMIT Internal Medicine; ATTEND Internal Medicine
PROC: 5A1D70Z Performance of Urinary Filtration, Intermittent, Less than 6 Hours Per Day (ICD-10-PCS; 2017-01-29)
PROC: 5A1D70Z Performance of Urinary Filtration, Intermittent, Less than 6 Hours Per Day (ICD-10-PCS; 2017-01-31)
PROC: 03170KD Bypass Right Brachial Artery to Upper Arm Vein with Nonautologous Tissue Substitute, Open Approach (ICD-10-PCS; principal; 2017-02-03)
PROC: 06H033Z Insertion of Infusion Device into Inferior Vena Cava, Percutaneous Approach (ICD-10-PCS; 2017-02-03)
PROC: 5A1D70Z Performance of Urinary Filtration, Intermittent, Less than 6 Hours Per Day (ICD-10-PCS; 2017-02-03)
DX: A41.02 Sepsis due to Methicillin resistant Staphylococcus aureus (principal); J69.0 Pneumonitis due to inhalation of food and vomit; G92 Toxic encephalopathy; R64 Cachexia; K85.90 Acute pancreatitis without necrosis or infection, unspecified; I12.0 Hypertensive chronic kidney disease with stage 5 chronic kidney disease or end stage renal disease; N18.6 End stage renal disease; F03.90 Unspecified dementia, unspecified severity, without behavioral disturbance, psychotic disturbance, mood disturbance, and anxiety; E83.51 Hypocalcemia; Z99.2 Dependence on renal dialysis; E87.1 Hypo-osmolality and hyponatremia; E78.5 Hyperlipidemia, unspecified; R62.7 Adult failure to thrive; N40.0 Benign prostatic hyperplasia without lower urinary tract symptoms; D64.9 Anemia, unspecified; Z86.73 Personal history of transient ischemic attack (TIA), and cerebral infarction without residual deficits; Z82.49 Family history of ischemic heart disease and other diseases of the circulatory system; Z68.1 Body mass index [BMI] 19.9 or less, adult; Z79.82 Long term (current) use of aspirin; Z83.3 Family history of diabetes mellitus
CPT/HCPCS: 36415-UA; 70450-TC; 71010-TC; 71250-TC; 76000-TC; 80048-TC; 80053-TC; 80061-TC; 80074-90; 80202-TC; 82150-TC; 82550-TC; 82948-90; 83605; 83690-TC; 83880-TC; 84484-TC; 85025-TC; 85610-TC; 85730-TC; 93005; 93970-TC-50; 94760; J0360; J1644; J1956; J2001; J2060; J2250; J2704; J3010; J3370; J7030; V2790; Z7610